=== PATIENT | female | born 1950 | race African-American/Black ===

== ENCOUNTER → 2016-12-08 | Outpatient (CLI) | payer MEDICARE, BC ==
[2015-04-16 11:00] VITALS: BP 142/61
[~2016-12-08] MED LIST: ACET325T9 PO; ALBU0.63 NEB; AMLO10TA2 PO; AMLO5TAB2 PO; ASPI-482 PO; ASPI-630 PO; BRIM5DRO3 OD; BUDE10.2 IH; CALC667C6 PO; CARV12.52 PO; CARV25TA2 PO; CINA30TA2 PO; CLON0.1T PO; Cefpodoxime Proxetil PO; DORZ10DR21 EACHEYE; FOLI0.8T3 PO; FURO80TA3 PO; INSU100I13 SQ; INSU100I17 SQ; INSU100V13 SQ; INSU100V8 SQ; Insulin Detemir SQ; LISI-334 PO; LISI40TA PO; OMEP20CA5 PO; PRAV40TA2 PO; PROAIR HFA8.5 GM IH; [UNRECOGNIZED DRUG - OTHER]; carvedilol; clonidine; lasix; nephro-vite
--- NOTE | 2016-12-08 13:40 | KCIC ---
History: Postmenopausal, end-stage renal disease. Findings: Bone Densitometry was performed with dual photon absorption of the lumbar spine and left hip. Lumbar Spine: Bone density is 1.084 g/cm2 for L1-L4. T-Score is 0.3. Z-score is 1.3. Left hip: Bone density is 0.835 g/cm2. T-Score is -0.9. Z-score is -0.3. IMPRESSION: Bone mineral density of the lumbar spine and left hip appears within normal limits. World Health definition of osteoporosis and osteopenia: Normal = T-Score at or above -1.0; osteopenia = T-score between -1.0 and -2.5; osteoporosis = T-score at or below -2.5 Electronically signed by: Feliz Hills MD (12/08/2016 1:37 PM) [facility]
== END | disposition home or self-care (01) ==
LOC: KCIC MAMMO 10:03
PROVIDERS: ATTEND Internal Medicine
DX: N18.6 End stage renal disease (principal); M81.0 Age-related osteoporosis without current pathological fracture; Z78.0 Asymptomatic menopausal state
CPT/HCPCS: 77080

== ENCOUNTER 2017-02-03 11:02 | Inpatient (IN) | payer MEDICARE, BC ==
[2017-02-03] VITALS (8 sets, daily range): BP systolic 119–217; BP diastolic 45–86
[~2017-02-03] VITALS: Ht 160 cm; Wt 88.6 kg
[~2017-02-03 11:02] MED LIST changes: -ALBU0.63 NEB
[2017-02-03] MEDS ORDERED: ASPIRIN CHEWABLE 81 MG TABLET. PO ONE (12:15)
--- NOTE | 2017-02-03 12:16 | EKG ---
[facility] [address] [place] [address] Test Date: 2017-02-03 Test Time: 11:26:37 Pat Name: STANLEY TAN Department: Room: Gender: F Hydrographer: : 1950 Requested By: GONZALO KNIGHT Order Number: [id number] Reading MD: Measurements Intervals [place] Rate: 70 P: 34 MS: 160 QRS: -18 QRSD: 80 T: 146 QT: 376 QTc: 409 Interpretive Statements SINUS RHYTHM LEFTWARD AXIS CONSIDER LEFT VENTRICULAR HYPERTROPHY QRS(T) CONTOUR ABNORMALITY CONSIDER ANTEROLATERAL MYOCARDIAL DAMAGE POSSIBLY ABNORMAL ECG RI6.01 No previous ECG available for comparison
--- NOTE | 2017-02-03 12:18 | PHYS DOC ---
Past Medical History Past Medical History: Asthma, Diabetes-Type II, Glaucoma, High Cholesterol, Hypertension, Renal Failure Additional Past Medical Histor: obesity Past Surgical History: Cholecystectomy Additional Past Surgical Histo: Rt arm shunt, back, L arm shunt Alcohol Use: None Drug Use: None Adult General Chief Complaint Chief Complaint: Congestion HPI HPI Patient is a 66 year old female who presents with complaint of chest pain. Patient states that she started having chest pain earlier today prior to her arrival at her dialysis center. Due to ongoing chest pain, the patient was sent by EMS to the emergency department from her dialysis center before receiving any treatment. The patient states currently her chest pain has resolved. Patient denies cough or shortness of breath currently. Patient states however she does notice worsening shortness of breath with exertion. Patient has history of hypertension, end-stage renal disease, type 2 diabetes mellitus, and patient follows a Dr. Briggs for primary care. Patient states that she has not had any similar episodes of chest pain. Patient described the pain earlier as a pressure in the middle of her chest. Patient denied any associated vomiting. Review of Systems Review of Systems Constitutional: Denies fever or chills [] Eyes: Denies change in visual acuity, redness, or eye pain [] HENT: Denies nasal congestion or sore throat [] Respiratory: Dyspnea on exertion[] Cardiovascular: Chest pain[] GI: Denies abdominal pain, nausea, vomiting, bloody stools or diarrhea [] : Denies dysuria or hematuria [] Musculoskeletal: Denies back pain or joint pain [] Integument: Denies rash or skin lesions [] Neurologic: Denies headache, focal weakness or sensory changes [] All other systems were reviewed and found to be within normal limits, except as documented in this note. Current Medications Current Medications Current Medications Medications (Trade) Dose Ordered Sig/Barbara Start Time Stop Time Status Last Admin Dose Admin Aspirin (Children'S Aspirin) 324 mg 1X ONCE 02/03/17 12:15 02/03/17 12:16 DC 02/03/17 13:20 324 MG Allergies Allergies Allergies Coded Allergies Type Severity Reaction Last Updated Verified latex Allergy Intermediate 04/11/15 Yes milk Allergy Intermediate 04/11/15 Yes Physical Exam Physical Exam Constitutional: Alert, afebrile, hypertensive, no acute distress. [] HENT: Normocephalic, atraumatic, bilateral external ears normal, oropharynx moist, no oral exudates, nose normal. [] Eyes: PERRLA, EOMI, conjunctiva normal, no discharge. [] Neck: Normal range of motion, no tenderness, supple, no stridor. [] Cardiovascular:Heart rate regular rhythm, no murmur [] Lungs & Thorax: Bilateral breath sounds clear to auscultation [] Abdomen: Bowel sounds normal, soft, no tenderness, no masses, no pulsatile masses. [] Skin: Warm, dry, no erythema, no rash. [] Back: No tenderness, no CVA tenderness. [] Extremities: No tenderness, no cyanosis, no clubbing, ROM intact, trace pedal edema bilaterally. [] Neurologic: Alert and oriented X 3, normal motor function, normal sensory function, no focal deficits noted. [] Current Patient Data Vital Signs Vital Signs Date Time Temp Pulse Resp B/P (MAP) Pulse Ox O2 Delivery O2 Flow Rate FiO2 02/03/17 12:03 71 18 227/98 (141) 99 Nasal Cannula 3.0 02/03/17 11:09 98.6 98.6 EKG EKG Interpreted by me: Heart rate 70, sinus rhythm, normal intervals, leftward axis , no acute ST/T-wave abnormalities present[] Radiology/Procedures Radiology/Procedures [facility] [address] [place] [address] IMAGING REPORT Signed PATIENT: STANLEY TAN ACCOUNT: [id number] : 1950 LOCATION: ER AGE: 66 SEX: F EXAM STATUS: REG ER ORD. PHYSICIAN: GONZALO KNIGHT MD REASON: shortness of breath PROCEDURE: PORTABLE CHEST 1V Single view of the Chest 02/03/2017 2:09 PM Indication: shortness of breath Comparison: Chest radiograph April 13, 2015 Findings: No pneumothorax is identified. Trace bilateral pleural effusions appear to be present. Mild patchy interstitial alveolar infiltrate is present throughout the lungs, right slightly greater than left. Heart is enlarged and there is central vascular congestion. Findings may represent mild pulmonary edema possibly in setting of congestive failure. Atypical infectious process is less likely but not excluded. No acute osseous changes are seen. Impression: Cardiac likely, central vascular congestion, trace pleural effusions. Minimal diffuse interstitial thickening and mild airspace opacities are seen bilaterally, right slightly greater than left. Findings may represent mild edema setting of congestive failure. Atypical infectious process is less likely but not excluded DICTATED and SIGNED BY: ABBE GALAN MD DATE: 02/03/17 1232 CC: GONZALO KNIGHT MD; DIVINA BRIGGS MD ~ [] Course & Med Decision Making Course & Med Decision Making Pertinent Labs and Imaging studies reviewed. (See chart for details) The patient's chest x-ray shows evidence of worsening edema. Given the setting of patient's hypertension and end-stage renal disease, the patient will need admission for appropriate treatment of her conditions. I spoke with Dr. Briggs who accepted care patient in hospital. Patient started on IV hydralazine for treatment of blood pressure. I also spoke with Dr. Bajwa who evaluated the patient in the emergency department and will follow with patient in hospital. A consult was placed to Dr. Perkins to follow with patient in hospital. Dragon Disclaimer Dragon Disclaimer This electronic medical record was generated, in whole or in part, using a voice recognition dictation system. Departure Departure Impression: Primary Impression: Accelerated hypertension Additional Impressions: Pulmonary edema Chest pain End stage renal disease Type 2 diabetes mellitus Disposition: ADMITTED INPATIENT Admitting Physician: Other Condition: GUARDED Referrals: DIVINA BRIGGS MD (PCP) Problem Qualifiers Additional Impressions: Pulmonary edema Chronicity: acute Qualified Codes: J81.0 - Acute pulmonary edema Chest pain Chest pain type: unspecified Qualified Codes: R07.9 - Chest pain, unspecified Type 2 diabetes mellitus Diabetes mellitus complication status: with unspecified complications Diabetes mellitus retirement insulin use: unspecified medical terminologist insulin use status Qualified Codes: E11.8 - Type 2 diabetes mellitus with unspecified complications GONZALO KNIGHT MD Feb 03, 2017 12:18
--- NOTE | 2017-02-03 12:38 | RAD ---
Single view of the Chest 02/03/2017 2:09 PM Indication: shortness of breath Comparison: Chest radiograph April 13, 2015 Findings: No pneumothorax is identified. Trace bilateral pleural effusions appear to be present. Mild patchy interstitial alveolar infiltrate is present throughout the lungs, right slightly greater than left. Heart is enlarged and there is central vascular congestion. Findings may represent mild pulmonary edema possibly in setting of congestive failure. Atypical infectious process is less likely but not excluded. No acute osseous changes are seen. Impression: Cardiac likely, central vascular congestion, trace pleural effusions. Minimal diffuse interstitial thickening and mild airspace opacities are seen bilaterally, right slightly greater than left. Findings may represent mild edema setting of congestive failure. Atypical infectious process is less likely but not excluded
[2017-02-03 13:39] LABS: BASO # 0.1 x10^3/uL (0.0-0.2); BASO % 1 % (0-3); EOS % 11 % (0-3); HEMATOCRIT 38.1 % (36.0-47.0); HEMOGLOBIN 12.2 g/dL (12.0-15.5); LYMPH % 14 % (24-48); MEAN CORPUSCULAR HEMOGLOBIN 29 pg (25-35); MEAN CORPUSCULAR HGB CONC 32 g/dL (31-37); MEAN CORPUSCULAR VOLUME 91 fL (79-100); MONO % 8 % (0-9); NEUT % 66 % (31-73); PLATELET COUNT 222 x10^3/uL (140-400); RED BLOOD COUNT 4.17 x10^6/uL (3.50-5.40); RED CELL DISTRIBUTION WIDTH 17.7 % (11.5-14.5); WHITE BLOOD COUNT 6.8 x10^3/uL (4.0-11.0)
[2017-02-03] MEDS ORDERED: ONDANSETRON PF 4 MG/2 ML VIAL. IV PRN (13:45)
[2017-02-03] MEDS ORDERED: fentaNYL PF VIAL 100 MCG/2 ML VIAL IV PRN (13:45)
[2017-02-03] MEDS: hydrALAZINE 20 MG/ML VIAL. IVP PRN (13:48)
--- NOTE | 2017-02-03 14:17 | PDOC2 ---
CONSULT Date of Consult Date of Consult DATE: 02/03/17 TIME: 14:11 Reason for Consult Reason for Consult: Chest pain Referring Physician Referring Physician: Dr. La Identification/Chief Complaint Chief Complaint Chest pain Problems: History of Present Illness Reason for Visit: This patient is a 66-year-old lady that has a known history of end-stage renal disease, diabetes, severe hypertension, she was having her dialysis around when her blood pressure went up and she started complaining of chest pains. Due to that she was brought to the emergency room. After arrival in the ER. EKG did not show any significant changes. I was asked to see the patient in the emergency room and I went and saw her there by the time that I arrived she was free of chest pains but complains that she is short of breath and very weak and can barely move in the bed. Her chest x-ray looks like acute CHF. Her blood pressure was still up over 200 and she has been given IV labetalol but is not quite coming down. Past Medical History Cardiovascular: CAD, HTN, MS, Syncope Pulmonary: No pertinent hx CENTRAL NERVOUS SYSTEM: Periperal neuropathy, TIA GI: No pertinent hx Heme/Onc: Anemia NOS Hepatobiliary: No pertinent hx Psych: No pertinent hx Musculoskeletal: Osteoarthritis Rheumatologic: No pertinent hx Infectious disease: No pertinent hx Renal/: Chronic renal failure Endocrine: Diabetes Past Surgical History Past Surgical History: Cholecystectomy, Other Family History Family History: Diabetes, Hypertension Social History ALCOHOL: none Drugs: None Lives: with Family Domestic Violence: Neg Current Problem List Problem List Problems Medical Problems: (1) Chest pain Status: Acute (2) End stage renal disease Status: Acute (3) Pulmonary edema Status: Acute (4) Type 2 diabetes mellitus Status: Acute Current Medications Current Medications Current Medications Aspirin (Children'S Aspirin) 324 mg 1X ONCE PO Last administered on t 13:20; Start 02/03/17 at 12:15; Stop 02/03/17 at 12:16; Status DC Ondansetron HCl (Zofran) 4 mg PRN Q8HRS PRN IV NAUSEA/VOMITING; Start at 13:45; Stop 02/04/17 at 13:44 Fentanyl Citrate (Fentanyl 2ml Vial) 50 mcg PRN Q2HR PRN IV PAIN; Start at 13:45; Stop 02/04/17 at 13:44 Hydralazine HCl (Apresoline Inj) 10 mg PRN Q4HRS PRN IVP ELEVATED BP, SEE COMMENTS Last administered on 02/03/17t 13:48; Start 02/03/17 at 13:45 Active Scripts Active Amlodipine Besylate 5 Mg Tablet 5 Mg PO DAILY Carvedilol 12.5 Mg Tablet 1 Tab PO BID Reported Levemir (Insulin Detemir) 100 Unit/1 Ml Vial 4 Unit SQ QHS Novolog Flexpen (Insulin Aspart) 100 Unit/1 Ml Insuln.pen 4 Unit SQ TIDAC Phoslo (Calcium Acetate) 667 Mg Capsule 2 Cap PO QHS Phoslo (Calcium Acetate) 667 Mg Capsule 3 Cap PO TIDWMEALS Symbicort 160-4.5 Mcg Inhaler (Budesonide/Formoterol Fumarate) 10.2 Gm Hfa.aer.ad 2 Puff IH BID Nephro-Johnny Tablet (Folic Acid/Vitamin B Comp W-C) 0.8 Mg Tablet 1 Tab PO DAILY Alphagan P (Brimonidine Tartrate) 5 Ml Drops 1 Drop OD BID Sensipar (Cinacalcet Hcl) 30 Mg Tablet 60 Mg PO DAILY Prilosec (Omeprazole) 20 Mg Capsule.dr 1 Cap PO DAILY Tylenol (Acetaminophen) 325 Mg Tablet 325 Mg PO Q4-6HRS PRN Proair Hfa Inhaler (Albuterol Sulfate) 8.5 Gm Hfa.aer.ad 2 Puff IH PRN Q4-6HRS Cosopt Eye Drops (Dorzolamide Hcl/Timolol Maleat) 10 Ml Drops 1 Drop EACHEYE BID Aspirin 81 Mg Tab.chew 81 Mg PO DAILY Allergies Allergies: Coded Allergies: latex (Verified Allergy, Intermediate, 04/11/15) milk (Verified Allergy, Intermediate, 04/11/15) Physical Exam General: Alert, Oriented X3, Cooperative HEENT: Other (the patient is blind in the left eye. The right eye is responsive to light.) Lungs: Other (sounds are decreased. Some rails) Heart: Regular rate, Normal S1, Normal S2 Abdomen: Normal bowel sounds, Soft Extremities: Other (1-2+ pitting edema.) Vitals VITALS Vital Signs Date Time Temp Pulse Resp B/P (MAP) Pulse Ox O2 Delivery O2 Flow Rate FiO2 02/03/17 13:48 67 210/91 02/03/17 13:33 16 100 Nasal Cannula 3.0 02/03/17 11:09 98.6 98.6 Labs Labs Laboratory Tests Test 02/03/17 13:23 White Blood Count 6.8 x10^3/uL (4.0-11.0) Red Blood Count 4.17 x10^6/uL (3.50-5.40) Hemoglobin 12.2 g/dL (12.0-15.5) Hematocrit 38.1 % (36.0-47.0) Mean Corpuscular Volume 91 fL (79-100) Mean Corpuscular Hemoglobin 29 pg (25-35) Mean Corpuscular Hemoglobin Concent 32 g/dL (31-37) Red Cell Distribution Width 17.7 % (11.5-14.5) Platelet Count 222 x10^3/uL (140-400) Neutrophils (%) (Auto) 66 % (31-73) Lymphocytes (%) (Auto) 14 % (24-48) Monocytes (%) (Auto) 8 % (0-9) Eosinophils (%) (Auto) 11 % (0-3) Basophils (%) (Auto) 1 % (0-3) Neutrophils # (Auto) 4.5 x10^3uL (1.8-7.7) Lymphocytes # (Auto) 1.0 x10^3/uL (1.0-4.8) Monocytes # (Auto) 0.5 x10^3/uL (0.0-1.1) Eosinophils # (Auto) 0.7 x10^3/uL (0.0-0.7) Basophils # (Auto) 0.1 x10^3/uL (0.0-0.2) Laboratory Tests Test 02/03/17 13:23 White Blood Count 6.8 x10^3/uL (4.0-11.0) Red Blood Count 4.17 x10^6/uL (3.50-5.40) Hemoglobin 12.2 g/dL (12.0-15.5) Hematocrit 38.1 % (36.0-47.0) Mean Corpuscular Volume 91 fL (79-100) Mean Corpuscular Hemoglobin 29 pg (25-35) Mean Corpuscular Hemoglobin Concent 32 g/dL (31-37) Red Cell Distribution Width 17.7 % (11.5-14.5) Platelet Count 222 x10^3/uL (140-400) Neutrophils (%) (Auto) 66 % (31-73) Lymphocytes (%) (Auto) 14 % (24-48) Monocytes (%) (Auto) 8 % (0-9) Eosinophils (%) (Auto) 11 % (0-3) Basophils (%) (Auto) 1 % (0-3) Neutrophils # (Auto) 4.5 x10^3uL (1.8-7.7) Lymphocytes # (Auto) 1.0 x10^3/uL (1.0-4.8) Monocytes # (Auto) 0.5 x10^3/uL (0.0-1.1) Eosinophils # (Auto) 0.7 x10^3/uL (0.0-0.7) Basophils # (Auto) 0.1 x10^3/uL (0.0-0.2) Assessment/Plan Assessment/Plan This patient's symptoms may be secondary to her hypertension. She appears to be overloaded and I would suggest to continue with daily dialysis to get fluid off and also to help lowering the blood pressure. If the labetalol doesn't help we may have to go to a [facility]. Thank you very much for asking me to participate in the care of this patient. LUIS GARNETT MD Feb 03, 2017 14:17
[2017-02-03 14:19] LABS: CALCIUM 10.6 mg/dL (8.5-10.1); GFR 4.5; GLUCOSE 105 mg/dL (70-99)
[2017-02-03 14:28] LABS: ANION GAP 13 (6-14); BLOOD UREA NITROGEN 1 mg/dL (7-20); BUN/CREATININE RATIO 0 (6-20); CARBON DIOXIDE 23 mmol/L (21-32); CHLORIDE 103 mmol/L (98-107); CREATININE 10.5 mg/dL (0.6-1.0); POTASSIUM 5.2 mmol/L (3.5-5.1); SODIUM 139 mmol/L (136-145)
[2017-02-03 14:30] LABS: ALK PHOS 64 U/L (46-116); AST (SGOT) 19 U/L (15-37); TOTAL BILIRUBIN 0.7 mg/dL (0.2-1.0); TOTAL PROTEIN 7.2 g/dL (6.4-8.2)
[2017-02-03 14:31] LABS: CKMB MASS 1.5 ng/mL (0.0-3.6); CREATINE KINASE 108 U/L (26-192)
[2017-02-03 14:43] LABS: ALBUMIN 4.1 g/dL (3.4-5.0); ALBUMIN/GLOBULIN RATIO 1.3 (1.0-1.7)
[2017-02-03 14:44] LABS: ALT (SGPT) < 6 U/L (14-59)
[2017-02-03 15:07] LABS: MAGNESIUM 2.1 mg/dL (1.8-2.4)
[2017-02-03] MEDS ORDERED: ACETAMINOPHEN 325 MG TABLET. PO PRN (15:30)
[2017-02-03] MEDS ORDERED: DEXTROSE 50% 25 GM / 50ML DISP.SYRIN. IV PRN (15:30)
[2017-02-03] MEDS ORDERED: LIDOCAINE 1% PF 2 ML VIAL. ONE (15:42)
[2017-02-03] MEDS: INSULIN ASPART 300 UNITS/3 ML INSULN.PEN SQ SCH (17:00)
[2017-02-03] MEDS ORDERED: ALBU0.63 NEB (17:34)
[2017-02-03] MEDS: BRIMONIDINE 0.2% OPHTH SOLUTION 5ML BOTTLE. OD SCH (19:52)
[2017-02-03] MEDS: DORZOLAMIDE/TIMOLOL 2%/0.5% OPHTH SOLUTION 10ML BOTTLE. OU SCH (19:52)
[2017-02-03] MEDS: CARVEDILOL 12.5 MG TABLET. PO SCH (19:52)
[2017-02-04] VITALS (12 sets, daily range): BP systolic 125–170; BP diastolic 52–100
--- NOTE | 2017-02-04 02:01 | CONS ---
DATE OF CONSULTATION: 02/03/2017 REQUESTING PHYSICIAN: Hospitalist. REASON: Renal failure. HISTORY OF PRESENT ILLNESS: This is a 66-year-old female with diabetes mellitus and end-stage renal disease secondary to same. She has a history of known severe hypertension. She presented to the Emergency Department and transferred from dialysis facility due to chest pain. She did not receive her dialysis treatment. The patient has been seen by Dr. Bajwa in the past. Has had cardiac catheterization with unremarkable coronary arteries. Her chest pain is felt to be related to her hypertension. PAST MEDICAL HISTORY: 1. Diabetes mellitus. 2. End-stage renal disease, hemodialysis dependent, Monday, Monday and Monday. 3. Hypertension. 4. Syncope. 5. Anemia of chronic kidney disease. 6. Secondary hyperparathyroidism. 7. Renal disease. 8. Osteoarthritis. 9. Obesity. 10. Cholecystectomy. 11. Vascular access placement. ALLERGIES: LATEX AND MILK. MEDICATIONS: Per med list. FAMILY HISTORY: Noncontributory. SOCIAL HISTORY: The patient resides with assistance. PHYSICAL EXAMINATION: GENERAL APPEARANCE: The patient is awake and conversant. HEENT: Clear. NECK: No increased JVD. No thyromegaly, masses or adenopathy. LUNGS: Decreased breath sounds at bases, otherwise clear. CARDIAC: Without S3 or rub. ABDOMEN: Soft and nontender. No bruits. EXTREMITIES: Without edema. NEUROLOGIC: Nonfocal, localizing. PSYCHIATRIC: Fair attention to detail. Appropriate affect. LABORATORIES: Hemoglobin 12.2 and hematocrit 38%. Potassium 5.2 and CO2 of 23. Creatinine 10.5. ProBNP greater than 35,000. IMPRESSION: 1. End-stage renal disease secondary to diabetes mellitus and hypertension. 2. Hypertension - under poor control. 3. Hypertension - likely related to hypertensive urgency. 4. Hyperkalemia due to renal failure. 5. Pulmonary edema related to hypertension. RECOMMENDATIONS: 1. Proceed with dialysis for management of fluid balance. She is in pulmonary edema, and this will assist in ____ and also assist in management of her hyperkalemia. 2. Blood pressure control per Dr. Bajwa. 3. We will follow along with you. At this time, we will hold Epogen due to hypertension and hemoglobin of 12.2. DIVINA ROQUE MD DR: JUANA/miles JOB#: [id number] / [id number]
[2017-02-04] MEDS: INSULIN ASPART 300 UNITS/3 ML INSULN.PEN SQ SCH ×3 (08:00→17:56)
[2017-02-04] MEDS ORDERED: amLODIPine BESYLATE 5 MG TABLET PO SCH (09:00)
[2017-02-04] MEDS: PANTOPRAZOLE 40 MG TABLET.DR. PO SCH (09:11)
[2017-02-04] MEDS: FOLIC/VIT B COMP W-C (RENAL) TABLET. PO SCH (09:11)
[2017-02-04] MEDS: ASPIRIN CHEWABLE 81 MG TABLET. PO SCH (09:11)
[2017-02-04] MEDS: CARVEDILOL 12.5 MG TABLET. PO SCH ×2 (09:11→16:36)
[2017-02-04] MEDS: DORZOLAMIDE/TIMOLOL 2%/0.5% OPHTH SOLUTION 10ML BOTTLE. OU SCH ×2 (09:12→21:11)
[2017-02-04] MEDS: CINACALCET HCL 30 MG TABLET PO SCH (09:12)
[2017-02-04] MEDS: BRIMONIDINE 0.2% OPHTH SOLUTION 5ML BOTTLE. OD SCH ×2 (09:13→21:11)
--- NOTE | 2017-02-04 11:10 | PDOC ---
PROGRESS NOTES Subjective Subjective She feels a little better today. Complaints of a headache. No significant dyspnea now. The blood pressure has been running a little better. Troponins were negative. She is still on a Cardene drip Objective Objective Vital Signs Date Time Temp Pulse Resp B/P (MAP) Pulse Ox O2 Delivery O2 Flow Rate FiO2 02/04/17 10:00 72 148/60 (89) 02/04/17 07:00 98.5 19 95 Nasal Cannula 3.0 98.5 Physical Exam Physical Exam Moving air well. Few rales. Heart no changes Less edema Assessment Assessment The patient's pulmonary edema is improving. I would like to increase the carvedilol to 25 mg by mouth twice a day and get rid of the Cardene drip. Problems Medical Problems: (1) Chest pain Status: Acute (2) End stage renal disease Status: Acute (3) Pulmonary edema Status: Acute (4) Type 2 diabetes mellitus Status: Acute Comment Review of Relevant I have reviewed the following items jorge (where applicable) has been applied. Labs Laboratory Tests Test 02/03/17 13:23 02/03/17 19:50 02/04/17 07:56 White Blood Count 6.8 x10^3/uL (4.0-11.0) Red Blood Count 4.17 x10^6/uL (3.50-5.40) Hemoglobin 12.2 g/dL (12.0-15.5) Hematocrit 38.1 % (36.0-47.0) Mean Corpuscular Volume 91 fL (79-100) Mean Corpuscular Hemoglobin 29 pg (25-35) Mean Corpuscular Hemoglobin Concent 32 g/dL (31-37) Red Cell Distribution Width 17.7 % (11.5-14.5) Platelet Count 222 x10^3/uL (140-400) Neutrophils (%) (Auto) 66 % (31-73) Lymphocytes (%) (Auto) 14 % (24-48) Monocytes (%) (Auto) 8 % (0-9) Eosinophils (%) (Auto) 11 % (0-3) Basophils (%) (Auto) 1 % (0-3) Neutrophils # (Auto) 4.5 x10^3uL (1.8-7.7) Lymphocytes # (Auto) 1.0 x10^3/uL (1.0-4.8) Monocytes # (Auto) 0.5 x10^3/uL (0.0-1.1) Eosinophils # (Auto) 0.7 x10^3/uL (0.0-0.7) Basophils # (Auto) 0.1 x10^3/uL (0.0-0.2) Sodium Level 139 mmol/L (136-145) Potassium Level 5.2 mmol/L (3.5-5.1) Chloride Level 103 mmol/L (98-107) Carbon Dioxide Level 23 mmol/L (21-32) Anion Gap 13 (6-14) Blood Urea Nitrogen 1 mg/dL (7-20) Creatinine 10.5 mg/dL (0.6-1.0) Estimated GFR (Cockcroft-Gault) 4.5 BUN/Creatinine Ratio 0 (6-20) Glucose Level 105 mg/dL (70-99) Calcium Level 10.6 mg/dL (8.5-10.1) Magnesium Level 2.1 mg/dL (1.8-2.4) Total Bilirubin 0.7 mg/dL (0.2-1.0) Aspartate Amino Transf (AST/SGOT) 19 U/L (15-37) Alanine Aminotransferase (ALT/SGPT) < 6 U/L (14-59) Alkaline Phosphatase 64 U/L (46-116) Creatine Kinase 108 U/L (26-192) Creatine Kinase MB (Mass) 1.5 ng/mL (0.0-3.6) Creatine Kinase MB Relative Index 1.4 % (0-4) Troponin I Quantitative < 0.017 ng/mL (0.000-0.055) VL-Rvv-A-Type Natriuretic Peptide > 10189 pg/mL (0-124) Total Protein 7.2 g/dL (6.4-8.2) Albumin 4.1 g/dL (3.4-5.0) Albumin/Globulin Ratio 1.3 (1.0-1.7) Glucose (Fingerstick) 93 mg/dL (70-99) 104 mg/dL (70-99) Laboratory Tests Test 02/03/17 13:23 02/03/17 19:50 02/04/17 07:56 White Blood Count 6.8 x10^3/uL (4.0-11.0) Red Blood Count 4.17 x10^6/uL (3.50-5.40) Hemoglobin 12.2 g/dL (12.0-15.5) Hematocrit 38.1 % (36.0-47.0) Mean Corpuscular Volume 91 fL (79-100) Mean Corpuscular Hemoglobin 29 pg (25-35) Mean Corpuscular Hemoglobin Concent 32 g/dL (31-37) Red Cell Distribution Width 17.7 % (11.5-14.5) Platelet Count 222 x10^3/uL (140-400) Neutrophils (%) (Auto) 66 % (31-73) Lymphocytes (%) (Auto) 14 % (24-48) Monocytes (%) (Auto) 8 % (0-9) Eosinophils (%) (Auto) 11 % (0-3) Basophils (%) (Auto) 1 % (0-3) Neutrophils # (Auto) 4.5 x10^3uL (1.8-7.7) Lymphocytes # (Auto) 1.0 x10^3/uL (1.0-4.8) Monocytes # (Auto) 0.5 x10^3/uL (0.0-1.1) Eosinophils # (Auto) 0.7 x10^3/uL (0.0-0.7) Basophils # (Auto) 0.1 x10^3/uL (0.0-0.2) Sodium Level 139 mmol/L (136-145) Potassium Level 5.2 mmol/L (3.5-5.1) Chloride Level 103 mmol/L (98-107) Carbon Dioxide Level 23 mmol/L (21-32) Anion Gap 13 (6-14) Blood Urea Nitrogen 1 mg/dL (7-20) Creatinine 10.5 mg/dL (0.6-1.0) Estimated GFR (Cockcroft-Gault) 4.5 BUN/Creatinine Ratio 0 (6-20) Glucose Level 105 mg/dL (70-99) Calcium Level 10.6 mg/dL (8.5-10.1) Magnesium Level 2.1 mg/dL (1.8-2.4) Total Bilirubin 0.7 mg/dL (0.2-1.0) Aspartate Amino Transf (AST/SGOT) 19 U/L (15-37) Alanine Aminotransferase (ALT/SGPT) < 6 U/L (14-59) Alkaline Phosphatase 64 U/L (46-116) Creatine Kinase 108 U/L (26-192) Creatine Kinase MB (Mass) 1.5 ng/mL (0.0-3.6) Creatine Kinase MB Relative Index 1.4 % (0-4) Troponin I Quantitative < 0.017 ng/mL (0.000-0.055) PE-Vzj-M-Type Natriuretic Peptide > 58571 pg/mL (0-124) Total Protein 7.2 g/dL (6.4-8.2) Albumin 4.1 g/dL (3.4-5.0) Albumin/Globulin Ratio 1.3 (1.0-1.7) Glucose (Fingerstick) 93 mg/dL (70-99) 104 mg/dL (70-99) Medications Current Medications Aspirin (Children'S Aspirin) 324 mg 1X ONCE PO Last administered on 13:20; Start 02/03/17 at 12:15; Stop 02/03/17 at 12:16; Status DC Ondansetron HCl (Zofran) 4 mg PRN Q8HRS PRN IV NAUSEA/VOMITING; Start at 13:45; Stop 02/04/17 at 13:44 Fentanyl Citrate (Fentanyl 2ml Vial) 50 mcg PRN Q2HR PRN IV PAIN; Start at 13:45; Stop 02/04/17 at 13:44 Hydralazine HCl (Apresoline Inj) 10 mg PRN Q4HRS PRN IVP ELEVATED BP, SEE COMMENTS Last administered on 02/03/17 13:48; Start 02/03/17 at 13:45 Insulin Aspart (NovoLOG) 0-6 UNITS TIDWMEALS SQ ; Start 02/03/17 at 17:00 Dextrose (Dextrose 50%-Water Syringe) 12.5 gm PRN Q15MIN PRN IV SEE COMMENTS; Start 02/03/17 at 15:30 Acetaminophen (Tylenol) 325 mg PRN Q6HRS PRN PO PAIN; Start 02/03/17 at 15:30 Amlodipine Besylate (Norvasc) 5 mg DAILY PO Last administered on 02/04/17 09: 11; Start 02/04/17 at 09:00 Aspirin (Children'S Aspirin) 81 mg DAILY PO Last administered on 02/04/17 09: 11; Start 02/04/17 at 09:00 Carvedilol (Coreg) 12.5 mg BIDWMEALS PO Last administered on 02/04/17 09:11; Start 02/03/17 at 18:00 Cinacalcet (Sensipar) 60 mg DAILY PO Last administered on 02/04/17 09:12; Start 02/04/17 at 09:00 Dorzolamide/ Timolol (Cosopt) 1 drop BID OU Last administered on 02/04/17 09: 12; Start 02/03/17 at 21:00 Vitamin B Complex/ Vitamin C (Christen-Johnny) 1 tab DAILY PO Last administered on 09:11; Start 02/04/17 at 09:00 Brimonidine Tartrate (Alphagan) 1 drop BID OD Last administered on 02/04/17 09:13; Start 02/03/17 at 21:00 Pantoprazole Sodium (Protonix) 40 mg DAILYAC PO Last administered on 09:11; Start 02/04/17 at 07:30 Nicardipine HCl 50 mg/Sodium Chloride 270 ml @ 25 mls/hr CONT PRN IV SEE I/O RECORD Last administered on 02/03/17 20:00; Start 02/03/17 at 20:00 Active Scripts Active Amlodipine Besylate 5 Mg Tablet 5 Mg PO DAILY Carvedilol 12.5 Mg Tablet 1 Tab PO BID Reported Albuterol Sulfate Neb Soln (Albuterol Sulfate) 0.63 Mg/3 Ml Vial.neb 1 Vial NEB QID Levemir (Insulin Detemir) 100 Unit/1 Ml Vial 4 Unit SQ QHS Novolog Flexpen (Insulin Aspart) 100 Unit/1 Ml Insuln.pen 4 Unit SQ TIDAC Phoslo (Calcium Acetate) 667 Mg Capsule 2 Cap PO QHS Phoslo (Calcium Acetate) 667 Mg Capsule 3 Cap PO TIDWMEALS Symbicort 160-4.5 Mcg Inhaler (Budesonide/Formoterol Fumarate) 10.2 Gm Hfa.aer.ad 2 Puff IH BID Nephro-Johnny Tablet (Folic Acid/Vitamin B Comp W-C) 0.8 Mg Tablet 1 Tab PO DAILY Alphagan P (Brimonidine Tartrate) 5 Ml Drops 1 Drop OD BID Sensipar (Cinacalcet Hcl) 30 Mg Tablet 60 Mg PO DAILY Prilosec (Omeprazole) 20 Mg Capsule.dr 1 Cap PO DAILY Tylenol (Acetaminophen) 325 Mg Tablet 325 Mg PO Q4-6HRS PRN Proair Hfa Inhaler (Albuterol Sulfate) 8.5 Gm Hfa.aer.ad 2 Puff IH PRN Q4-6HRS Cosopt Eye Drops (Dorzolamide Hcl/Timolol Maleat) 10 Ml Drops 1 Drop EACHEYE BID Aspirin 81 Mg Tab.chew 81 Mg PO DAILY Vitals/I & O Vital Sign - Last 24 Hours 02/03/17 02/03/17 02/03/17 02/03/17 11:09 11:51 12:03 13:22 Temp 98.6 98.6 Pulse 72 71 71 73 Resp 16 18 18 22 B/P (MAP) 200/91 (127) 242/102 (148) 227/98 (141) 215/91 (132) Pulse Ox 99 99 99 92 O2 Delivery Nasal Cannula Nasal Cannula Nasal Cannula Nasal Cannula O2 Flow Rate 3.0 3.0 3.0 3.0 02/03/17 02/03/17 02/03/17 02/03/17 13:33 13:46 13:48 14:03 Pulse 67 73 67 73 Resp 16 20 20 B/P (MAP) 213/89 (130) 210/91 (130) 210/91 211/86 (127) Pulse Ox 100 100 100 O2 Delivery Nasal Cannula Nasal Cannula Nasal Cannula O2 Flow Rate 3.0 3.0 3.0 02/03/17 02/03/17 02/03/17 02/03/17 14:30 14:52 19:38 19:52 Temp 97.7 97.4 97.7 97.4 Pulse 80 75 75 Resp 20 20 B/P (MAP) 197/71 (113) 217/86 (129) 217/86 Pulse Ox 97 100 O2 Delivery Nasal Cannula Nasal Cannula Nasal Cannula O2 Flow Rate 2.0 3.0 3.0 02/03/17 02/03/17 02/03/17 02/03/17 20:00 20:08 20:30 21:00 B/P (MAP) 186/72 (110) 170/57 (94) 156/50 (85) O2 Delivery Nasal Cannula O2 Flow Rate 3.0 02/03/17 02/03/17 02/03/17 02/04/17 21:30 22:01 22:30 03:00 Temp 98.6 98.3 98.6 98.3 Pulse 84 77 Resp 20 19 B/P (MAP) 150/51 (84) 119/45 (69) 119/52 (74) 146/60 (88) Pulse Ox 95 98 O2 Delivery Nasal Cannula Nasal Cannula O2 Flow Rate 3.0 3.0 02/04/17 02/04/17 02/04/17 02/04/17 03:30 04:30 05:30 07:00 Temp 98.5 98.5 Pulse 72 81 Resp 19 B/P (MAP) 145/67 (93) 149/72 (97) 149/70 (96) 158/100 (119) Pulse Ox 95 O2 Delivery Nasal Cannula O2 Flow Rate 3.0 02/04/17 02/04/17 02/04/17 02/04/17 08:00 09:00 09:11 09:11 Pulse 70 80 81 81 B/P (MAP) 156/92 (113) 170/60 (96) 158/100 158/100 02/04/17 10:00 Pulse 72 B/P (MAP) 148/60 (89) LUIS GARNETT MD Feb 04, 2017 11:10
[2017-02-04] MEDS ORDERED: CARVEDILOL 12.5 MG TABLET. PO ONE (11:15)
--- NOTE | 2017-02-04 11:24 | PDOC ---
Provider Note Provider Note history and physical dictated # [id number] DIVINA BRIGGS MD Feb 04, 2017 11:24
[2017-02-04] MEDS ORDERED: amLODIPine BESYLATE 5 MG TABLET PO ONE (13:00)
--- NOTE | 2017-02-04 13:18 | HP ---
ADMIT DATE: 02/03/2017 LOCATION: She is in room 200. HISTORY OF PRESENT ILLNESS: The patient is a 66-year-old -[place] female with history of diabetes mellitus type 2, treated with diet; hypertension, hyperlipidemia with statin intolerance, who has chronic hypoxic respiratory failure, on continuous oxygen 3 liters per nasal cannula and has end-stage renal disease, treated with hemodialysis on Mondays, Wednesdays and Fridays. The patient was at hemodialysis yesterday when she developed some chest pain and had high blood pressure and was sent to the [facility] Emergency Room where she eventually received IV labetalol and was started on IV Cardene drip. Her blood pressure is better this morning. She says she has not missed any hemodialysis; however, yesterday she did miss the one when she had her chest pain and was dialyzed after she was admitted to [facility] yesterday on 02/03/2017. She is presently pain free. She was hospitalized in March 2015 with chest pain and her cardiac catheterization showed no significant coronary artery disease. An echocardiogram showed a preserved left ventricular ejection fraction. The patient therefore admitted for further evaluation of her chest discomfort and accelerated hypertension. She does take amlodipine and carvedilol at home. ALLERGIES AND INTOLERANCES: INCLUDE LATEX AND MILK. MEDICATIONS: Include amlodipine 5 mg every day, albuterol inhaler 2 puffs every 4 hours p.r.n., albuterol nebulizer treatment q.i.d. p.r.n., aspirin 81 mg every day, eyedrops for glaucoma, carvedilol 12.5 mg b.i.d., Sensipar 60 mg every day, Nephro-Johnny 1 every day and she takes omeprazole 20 mg every day. PAST MEDICAL HISTORY: Significant for hospitalization in March 2015 for chest pain. Her cardiac catheterization revealed no significant coronary artery disease. An echocardiogram showed a preserved left ventricular ejection fraction. She had a left lung mass that was aspirated and it was benign. She has diabetes mellitus type 2, treated with diet; hypertension; hyperlipidemia; asthma; obstructive sleep apnea, but her CPAP I think is not functional; chronic hypoxic respiratory failure, on chronic oxygen 3 liters per nasal cannula; end-stage renal disease, on hemodialysis. She has hyperlipidemia with statin intolerance. She has a shunt for dialysis. SOCIAL HISTORY: She does not drink alcohol nor does she smoke cigarettes. FAMILY HISTORY: Noncontributory. REVIEW OF SYSTEMS: GENERAL: There has been no fever, chills or sweats. CARDIOVASCULAR: She had some chest pain yesterday, which resolved. PULMONARY: No cough. She had some shortness of breath yesterday, but not now. GASTROINTESTINAL: No constipation. ENDOCRINE: She has diabetes mellitus. The rest of systems reviewed are negative except as stated in history of present illness. PHYSICAL EXAMINATION: VITAL SIGNS: Temperature is 97.5 degrees, apical pulse regular at 74, respiratory rate 16, blood pressure 128/63, oxygen saturation 100% on 3 liters per nasal cannula. HEENT: Eyes: Gaze is conjugate. Mouth: Tongue is midline. NECK: There is no cervical lymphadenopathy. HEART: Reveals an S1, S2. There is no S3 or murmur. LUNGS: Clear. ABDOMEN: Obese and soft, nontender. EXTREMITIES: Left upper extremity has got an AV shunt with a positive thrill. Lower extremities without edema. SKIN: No rashes. NEUROLOGIC: Shows she is coherent with no focal weakness of the upper or lower extremities. LABORATORY DATA: White count 6.8, hemoglobin 12.2, platelet count 222,000, 66 polys, 14 lymphocytes. Sodium 139, potassium 5.2, chloride 103, total CO2 was 23. The BUN was 1, creatinine 10.5, blood sugar 105, calcium 10.6. Liver function tests were normal. Albumin 4.1. ProBNP was increased at 35,000, but she is a dialysis patient. Her troponin levels negative x 1. Her blood sugar this morning is 104 and it was 93 last night. Chest x-ray showed trace bilateral pleural effusions, mild patchy interstitial alveolar infiltrates throughout the lungs. Findings could be consistent with mild pulmonary edema. ____ done an EKG and showed normal sinus rhythm with no acute abnormality. ASSESSMENT: 1. Accelerated hypertension, which is improved on IV Cardene drip. 2. Atypical chest pain with essentially normal cardiac catheterization in March 2015. 3. End-stage renal disease, treated with hemodialysis. 4. Diabetes mellitus type 2, treated with diet. 5. Chronic hypoxic respiratory failure. 6. Obstructive sleep apnea. 7. Hyperlipidemia with statin intolerance. PLAN: At this time is to discontinue IV Cardene drip and increase her amlodipine to 10 mg every day and I discussed the case with Dr. Bajwa. We will increase the carvedilol to 25 mg b.i.d. We will continue with p.r.n. IV hydralazine should her blood pressure be 160 or higher. She was dialyzed yesterday. She is already been seen by Dr. Cali in consultation. DIVINA BRIGGS MD DR: AZUCENA/miles JOB#: [id number] / [id number]
[2017-02-04] MEDS: hydrALAZINE 20 MG/ML VIAL. IVP PRN (18:10)
[2017-02-05 03:18] VITALS: BP 135/53
[2017-02-05 07:00] VITALS: BP 154/58
[2017-02-05] MEDS ORDERED: amLODIPine BESYLATE 10 MG TABLET PO SCH (09:00)
[2017-02-05] MEDS: CINACALCET HCL 30 MG TABLET PO SCH (10:12)
[2017-02-05] MEDS: FOLIC/VIT B COMP W-C (RENAL) TABLET. PO SCH (10:13)
[2017-02-05] MEDS: ASPIRIN CHEWABLE 81 MG TABLET. PO SCH (10:13)
[2017-02-05] MEDS: PANTOPRAZOLE 40 MG TABLET.DR. PO SCH (10:13)
[2017-02-05] MEDS: DORZOLAMIDE/TIMOLOL 2%/0.5% OPHTH SOLUTION 10ML BOTTLE. OU SCH (10:14)
[2017-02-05] MEDS: BRIMONIDINE 0.2% OPHTH SOLUTION 5ML BOTTLE. OD SCH (10:14)
[2017-02-05] MEDS: CARVEDILOL 12.5 MG TABLET. PO SCH ×2 (10:14→16:19)
[2017-02-05] MEDS ORDERED: DIALYSIS PATIENT. MC PRN (10:15)
[2017-02-05] MEDS: INSULIN ASPART 300 UNITS/3 ML INSULN.PEN SQ SCH ×2 (10:22→12:57)
--- NOTE | 2017-02-05 10:45 | PDOC ---
PROGRESS NOTES Subjective Subjective feels better. denies chest pain or shortness of breath. blood pressure better. dialyzed yesterday. Objective Objective Vital Signs Date Time Temp Pulse Resp B/P (MAP) Pulse Ox O2 Delivery O2 Flow Rate FiO2 02/05/17 10:14 69 154/58 02/05/17 07:00 98.0 20 93 Nasal Cannula 3.0 98.0 Intake and Output 02/05/17 07:00 Intake Total 1405 ml Balance 1405 ml Intake Oral 1180 ml IV Total 225 ml # Voids 1 Physical Exam Abdomen: Soft Heart: Regular rate, Normal S1, Normal S2 Extremities: No edema General: Alert HEENT: Atraumatic Lungs: Clear to auscultation Neuro: Normal speech Psych/Mental Status: Mental status NL Skin: No rashes Assessment Assessment Problems1. Accelerated hypertension resolved. BP better 2. Atypical chest pain with essentially normal cardiac catheterization in March 2015. 3. End-stage renal disease, treated with hemodialysis. 4. Diabetes mellitus type 2, treated with diet. 5. Chronic hypoxic respiratory failure. 6. Obstructive sleep apnea. 7. Hyperlipidemia with statin intolerance. acute diastolic chf due to fluid overload resolved with hemodialysis Medical Problems: (1) Chest pain Status: Acute (2) End stage renal disease Status: Acute (3) Pulmonary edema Status: Acute (4) Type 2 diabetes mellitus Status: Acute Plan Plan of Care dismiss today out patient dialysis tomorrow Comment Review of Relevant I have reviewed the following items jorge (where applicable) has been applied. Labs Laboratory Tests Test 02/03/17 13:23 02/03/17 19:50 02/04/17 07:56 02/04/17 11:37 White Blood Count 6.8 x10^3/uL (4.0-11.0) Red Blood Count 4.17 x10^6/uL (3.50-5.40) Hemoglobin 12.2 g/dL (12.0-15.5) Hematocrit 38.1 % (36.0-47.0) Mean Corpuscular Volume 91 fL (79-100) Mean Corpuscular Hemoglobin 29 pg (25-35) Mean Corpuscular Hemoglobin Concent 32 g/dL (31-37) Red Cell Distribution Width 17.7 % (11.5-14.5) Platelet Count 222 x10^3/uL (140-400) Neutrophils (%) (Auto) 66 % (31-73) Lymphocytes (%) (Auto) 14 % (24-48) Monocytes (%) (Auto) 8 % (0-9) Eosinophils (%) (Auto) 11 % (0-3) Basophils (%) (Auto) 1 % (0-3) Neutrophils # (Auto) 4.5 x10^3uL (1.8-7.7) Lymphocytes # (Auto) 1.0 x10^3/uL (1.0-4.8) Monocytes # (Auto) 0.5 x10^3/uL (0.0-1.1) Eosinophils # (Auto) 0.7 x10^3/uL (0.0-0.7) Basophils # (Auto) 0.1 x10^3/uL (0.0-0.2) Sodium Level 139 mmol/L (136-145) Potassium Level 5.2 mmol/L (3.5-5.1) Chloride Level 103 mmol/L (98-107) Carbon Dioxide Level 23 mmol/L (21-32) Anion Gap 13 (6-14) Blood Urea Nitrogen 1 mg/dL (7-20) Creatinine 10.5 mg/dL (0.6-1.0) Estimated GFR (Cockcroft-Gault) 4.5 BUN/Creatinine Ratio 0 (6-20) Glucose Level 105 mg/dL (70-99) Calcium Level 10.6 mg/dL (8.5-10.1) Magnesium Level 2.1 mg/dL (1.8-2.4) Total Bilirubin 0.7 mg/dL (0.2-1.0) Aspartate Amino Transf (AST/SGOT) 19 U/L (15-37) Alanine Aminotransferase (ALT/SGPT) < 6 U/L (14-59) Alkaline Phosphatase 64 U/L (46-116) Creatine Kinase 108 U/L (26-192) Creatine Kinase MB (Mass) 1.5 ng/mL (0.0-3.6) Creatine Kinase MB Relative Index 1.4 % (0-4) Troponin I Quantitative < 0.017 ng/mL (0.000-0.055) KE-Lgf-S-Type Natriuretic Peptide > 01728 pg/mL (0-124) Total Protein 7.2 g/dL (6.4-8.2) Albumin 4.1 g/dL (3.4-5.0) Albumin/Globulin Ratio 1.3 (1.0-1.7) Glucose (Fingerstick) 93 mg/dL (70-99) 104 mg/dL (70-99) 166 mg/dL (70-99) Test 02/04/17 17:20 02/04/17 20:44 02/05/17 07:44 Glucose (Fingerstick) 162 mg/dL (70-99) 175 mg/dL (70-99) 147 mg/dL (70-99) Laboratory Tests Test 02/04/17 11:37 02/04/17 17:20 02/04/17 20:44 02/05/17 07:44 Glucose (Fingerstick) 166 mg/dL (70-99) 162 mg/dL (70-99) 175 mg/dL (70-99) 147 mg/dL (70-99) Medications Current Medications Aspirin (Children'S Aspirin) 324 mg 1X ONCE PO Last administered on 13:20; Start 02/03/17 at 12:15; Stop 02/03/17 at 12:16; Status DC Ondansetron HCl (Zofran) 4 mg PRN Q8HRS PRN IV NAUSEA/VOMITING; Start at 13:45; Stop 02/04/17 at 13:44; Status DC Fentanyl Citrate (Fentanyl 2ml Vial) 50 mcg PRN Q2HR PRN IV PAIN; Start at 13:45; Stop 02/04/17 at 13:44; Status DC Hydralazine HCl (Apresoline Inj) 10 mg PRN Q4HRS PRN IVP ELEVATED BP, SEE COMMENTS Last administered on 02/04/17 18:10; Start 02/03/17 at 13:45 Insulin Aspart (NovoLOG) 0-6 UNITS TIDWMEALS SQ Last administered on 10:22; Start 02/03/17 at 17:00 Dextrose (Dextrose 50%-Water Syringe) 12.5 gm PRN Q15MIN PRN IV SEE COMMENTS; Start 02/03/17 at 15:30 Acetaminophen (Tylenol) 325 mg PRN Q6HRS PRN PO PAIN; Start 02/03/17 at 15:30 Amlodipine Besylate (Norvasc) 5 mg DAILY PO Last administered on 02/04/17 09: 11; Start 02/04/17 at 09:00; Stop 02/04/17 at 11:15; Status DC Aspirin (Children'S Aspirin) 81 mg DAILY PO Last administered on 02/05/17 10: 13; Start 02/04/17 at 09:00 Carvedilol (Coreg) 12.5 mg BIDWMEALS PO Last administered on 02/04/17 09:11; Start 02/03/17 at 18:00; Stop 02/04/17 at 11:09; Status DC Cinacalcet (Sensipar) 60 mg DAILY PO Last administered on 02/05/17 10:12; Start 02/04/17 at 09:00 Dorzolamide/ Timolol (Cosopt) 1 drop BID OU Last administered on 02/05/17 10: 14; Start 02/03/17 at 21:00 Vitamin B Complex/ Vitamin C (Christen-Johnny) 1 tab DAILY PO Last administered on 10:13; Start 02/04/17 at 09:00 Brimonidine Tartrate (Alphagan) 1 drop BID OD Last administered on 02/05/17 10:14; Start 02/03/17 at 21:00 Pantoprazole Sodium (Protonix) 40 mg DAILYAC PO Last administered on 10:13; Start 02/04/17 at 07:30 Nicardipine HCl 50 mg/Sodium Chloride 270 ml @ 25 mls/hr CONT PRN IV SEE I/O RECORD Last administered on 02/03/17 20:00; Start 02/03/17 at 20:00; Stop at 11:15; Status DC Carvedilol (Coreg) 25 mg BIDWMEALS PO Last administered on 02/05/17 10:14; Start 02/04/17 at 17:00 Carvedilol (Coreg) 12.5 mg 1X ONCE PO Last administered on 02/04/17 11:34; Start 02/04/17 at 11:15; Stop 02/04/17 at 11:16; Status DC Amlodipine Besylate (Norvasc) 10 mg DAILY PO Last administered on 11/26/17at 10 :13; Start 02/05/17 at 09:00 Amlodipine Besylate (Norvasc) 5 mg 1X ONCE PO Last administered on 02/04/17t 12:37; Start 02/04/17 at 13:00; Stop 02/04/17 at 13:01; Status DC Info (PHARMACY MONITORING -- do not chart) 1 each PRN DAILY PRN MC SEE COMMENTS ; Start 02/05/17 at 10:15 Active Scripts Active Amlodipine Besylate 5 Mg Tablet 5 Mg PO DAILY Carvedilol 12.5 Mg Tablet 1 Tab PO BID Reported Albuterol Sulfate Neb Soln (Albuterol Sulfate) 0.63 Mg/3 Ml Vial.neb 1 Vial NEB QID Levemir (Insulin Detemir) 100 Unit/1 Ml Vial 4 Unit SQ QHS Novolog Flexpen (Insulin Aspart) 100 Unit/1 Ml Insuln.pen 4 Unit SQ TIDAC Phoslo (Calcium Acetate) 667 Mg Capsule 2 Cap PO QHS Phoslo (Calcium Acetate) 667 Mg Capsule 3 Cap PO TIDWMEALS Symbicort 160-4.5 Mcg Inhaler (Budesonide/Formoterol Fumarate) 10.2 Gm Hfa.aer.ad 2 Puff IH BID Nephro-Johnny Tablet (Folic Acid/Vitamin B Comp W-C) 0.8 Mg Tablet 1 Tab PO DAILY Alphagan P (Brimonidine Tartrate) 5 Ml Drops 1 Drop OD BID Sensipar (Cinacalcet Hcl) 30 Mg Tablet 60 Mg PO DAILY Prilosec (Omeprazole) 20 Mg Capsule.dr 1 Cap PO DAILY Tylenol (Acetaminophen) 325 Mg Tablet 325 Mg PO Q4-6HRS PRN Proair Hfa Inhaler (Albuterol Sulfate) 8.5 Gm Hfa.aer.ad 2 Puff IH PRN Q4-6HRS Cosopt Eye Drops (Dorzolamide Hcl/Timolol Maleat) 10 Ml Drops 1 Drop EACHEYE BID Aspirin 81 Mg Tab.chew 81 Mg PO DAILY Vitals/I & O Vital Sign - Last 24 Hours 02/04/17 02/04/17 02/04/17 02/04/17 11:00 11:34 12:37 15:00 Temp 97.5 98.1 97.5 98.1 Pulse 74 67 67 66 Resp 16 16 B/P (MAP) 128/63 (84) 168/64 168/64 160/69 (99) Pulse Ox 100 99 O2 Delivery Nasal Cannula Nasal Cannula O2 Flow Rate 3.0 3.0 02/04/17 02/04/17 02/04/17 02/04/17 16:36 18:10 19:45 19:59 Temp 98.3 98.3 Pulse 75 75 65 Resp 18 B/P (MAP) 169/70 169/70 137/55 (82) Pulse Ox 97 O2 Delivery Nasal Cannula Nasal Cannula O2 Flow Rate 3.0 3.0 02/04/17 02/05/17 02/05/17 02/05/17 22:51 03:18 07:00 10:13 Temp 98.2 98.2 98.0 98.2 98.2 98.0 Pulse 67 69 74 69 Resp 16 16 20 B/P (MAP) 125/52 (76) 135/53 (80) 154/58 (90) 154/58 Pulse Ox 98 95 93 O2 Delivery Nasal Cannula Nasal Cannula Nasal Cannula O2 Flow Rate 3.0 3.0 3.0 02/05/17 10:14 Pulse 69 B/P (MAP) 154/58 Intake and Output 02/04/17 02/04/17 02/05/17 15:00 23:00 07:00 Intake Total 360 ml 545 ml 500 ml Balance 360 ml 545 ml 500 ml DIVINA BRIGGS MD Feb 05, 2017 10:45
--- NOTE | 2017-02-05 10:52 | DISCH ---
DISCHARGE INSTRUCTIONS Condition on Discharge Condition on Discharge: Stable Activity After Discharge Activity Instructions for Disc: Resume previous activity Diet after Discharge Diet after Discharge: Renal Dialysis, Diabetic No Calorie Level Contacting the after DC Call your doctor for: If your condition worsens Follow-Up Follow up with: dr. briggs in 1 week DIVINA BRIGGS MD Feb 05, 2017 10:52
[2017-02-05] MEDS ORDERED: AMLO10TA2 PO (10:56)
[2017-02-05] MEDS ORDERED: CARV25TA2 PO (10:56)
[2017-02-05 11:00] VITALS: BP 109/58
--- NOTE | 2017-02-05 11:01 | PDOC ---
Provider Note Provider Note discharge summary dictated # [id number] DIVINA BRIGGS MD Feb 05, 2017 11:01
--- NOTE | 2017-02-05 12:50 | DS ---
DATE OF DISCHARGE: 02/05/2017 CONSULTANTS: Dr. Bajwa and Dr. Cali. PROCEDURE: Hemodialysis. FINAL DIAGNOSES: 1. Accelerated hypertension. 2. Atypical chest pain. 3. Acute diastolic congestive heart failure. 4. End-stage renal disease, treated with hemodialysis. 5. Diabetes mellitus type 2, treated with a diet. 6. Chronic hypoxic respiratory failure. 7. Obstructive sleep apnea. 8. Asthma. 9. Hyperlipidemia with statin intolerance. HOSPITAL COURSE: The patient is a 66-year-old -German female with history of diabetes mellitus type 2, treated with diet; hypertension, hyperlipidemia, statin intolerance, has chronic hypoxic respiratory failure, on continuous oxygen 3 liters per nasal cannula, who has end-stage renal disease, treated with hemodialysis Mondays, Wednesdays, Fridays. She was at hemodialysis when she developed some chest pain and high blood pressure, was sent to the [facility] Emergency Room, where systolic blood pressure was quite high exceeding 200 and received IV labetalol and was started on IV Cardene drip. Seen in consultation by Dr. Bajwa. The patient's cardiac enzyme was negative. It should be noted that she underwent a cardiac catheterization in 03/2015, which showed normal coronary arteries and an echocardiogram at that time showed a preserved left ventricular ejection fraction. The chest pain did resolve, and it was felt secondary to the accelerated hypertension. She did have acute diastolic congestive heart failure, which was treated with hemodialysis as she was not dialyzed today after the chest pain. So she was dialyzed on Monday, seen in consultation by Dr. Cali for Nephrology. Yesterday, her IV Cardene was discontinued, and her amlodipine and carvedilol were increased. Her blood pressure is improved today. She denies any chest pain or shortness of breath at this time. She therefore will be dismissed to home on amlodipine 10 mg everyday, carvedilol 25 mg b.i.d., albuterol inhaler 2 puffs every 4 hours p.r.n., albuterol nebulizer treatments q.i.d. p.r.n. She is on Symbicort 2 puffs b.i.d., Sensipar 60 mg every day, Nephro-Johnny 1 everyday. She will also be dismissed on brimonidine 0.2% eyedrops 1 drop b.i.d. to both eyes and also will be dismissed on dorzolamide/timolol 2%/0.5%, which is Cosopt, one drop in both eyes b.i.d. She will go to her outpatient hemodialysis on Monday, Wednesdays and Fridays, told to make an appointment to see Dr. La in the office in 1 week. She will continue with her aspirin 81 mg every day. DIVINA LA MD DR: AZUCENA/miles JOB#: [id number] / [id number]
[2017-02-05 14:56] VITALS: BP 125/59
[2017-02-05 16:19] VITALS: BP 125/55
--- NOTE | 2017-02-06 15:11 | CARD ---
APPROVED REPORT EXAM: Two-dimensional and M-mode echocardiogram with Doppler and color Doppler. Other Information Quality : Good INDICATION Congestive Heart Failure 2D DIMENSIONS Left Atrium(2D)4.0 (1.6-4.0cm)IVSd1.1 (0.7-1.1cm) Aortic Root(2D)3.0 (2.0-3.7cm)LVDd5.3 (3.9-5.9cm) LVOT Diameter2.0 (1.8-2.4cm)PWd1.1 (0.7-1.1cm) LVDs3.6 (2.5-4.0cm)FS (%) 31.7 % SV81.3 mlLVEF(%)55.0 (>50%) Aortic Valve AoV Peak Manjeet.174.2cm/sAoV VTI41.4cm AO Peak GR.12.1mmHgLVOT Peak Manjeet.121.1cm/s AO Mean GR.7mmHgAVA (VMAX)2.14cm2 DANELLE (VTI)2.00cm2 Mitral Valve MV E Vnpguzbu884.6cm/sMV DECEL NPGW441pm MV A Mbfrpczg59.6cm/sE/A Ratio1.6 Tricuspid Valve TR P. Ubaeoqdi027fk/sRAP QTKCEWJR5diAy TR Peak Gr.80wqXcKYBH39pbMf LEFT VENTRICLE The left ventricle is normal size. There is borderline to mild concentric left ventricular hypertroph y. Left ventricle systolic function is normal. The Ejection Fraction is 55%. There is normal LV segme ntal wall motion. Tissue Doppler imaging reveals mild left ventricular diastolic dysfunction. RIGHT VENTRICLE The right ventricle is mildly dilated. The right ventricular systolic function is normal. ATRIA The left atrium size is normal. The right atrium is mildly dilated. The interatrial septum is intact with no evidence for an atrial septal defect or patent foramen ovale as noted on 2-D or Doppler imagi ng. AORTIC VALVE The aortic valve is mildly calcified but opens well. Doppler and Color Flow revealed no significant a ortic regurgitation. There is no significant aortic valvular stenosis. MITRAL VALVE The mitral valve is calcified but opens well. There is no evidence of mitral valve prolapse. There is no mitral valve stenosis. Doppler and Color-flow revealed mild mitral regurgitation. TRICUSPID VALVE The tricuspid valve is normal in structure. Doppler and Color Flow revealed mild tricuspid regurgitat ion. There is mild pulmonary hypertension. The PA pressure was estimated at 39 mmHg. There is no tric uspid valve prolapse or vegetation. There is no tricuspid valve stenosis. PULMONIC VALVE The pulmonary valve is normal in structure and function. Doppler and Color Flow revealed no pulmonic valvular regurgitation. There is no pulmonic valvular stenosis. GREAT VESSELS The aortic root is normal in size. The ascending aorta is normal in size. The IVC is normal in size a nd collapses >50% with inspiration. PERICARDIAL EFFUSION There is no pleural effusion. There is no evidence of significant pericardial effusion. Critical Notification Critical Value: No <Conclusion> There is borderline to mild concentric left ventricular hypertrophy. Left ventricle systolic function is normal. The Ejection Fraction is 55%. Tissue Doppler imaging reveals mild left ventricular diastolic dysfunction. The right ventricle is mildly dilated. The left atrium size is normal. The right atrium is mildly dilated. The aortic valve is mildly calcified but opens well. Doppler and Color-flow revealed mild mitral regurgitation. Doppler and Color Flow revealed mild tricuspid regurgitation. There is mild pulmonary hypertension. The PA pressure was estimated at 39 mmHg. The pulmonary valve is normal in structure and function. There is no evidence of significant pericardial effusion.
== END 2017-02-05 16:30 | disposition home or self-care (01) | DRG 291 ==
LOC: ER 11:02 → 2 NORTH 12:57
PROVIDERS: ADMIT Internal Medicine; ATTEND Internal Medicine
DX: I13.2 Hypertensive heart and chronic kidney disease with heart failure and with stage 5 chronic kidney disease, or end stage renal disease (principal); I50.31 Acute diastolic (congestive) heart failure; J96.11 Chronic respiratory failure with hypoxia; E11.22 Type 2 diabetes mellitus with diabetic chronic kidney disease; E11.42 Type 2 diabetes mellitus with diabetic polyneuropathy; N18.6 End stage renal disease; N25.81 Secondary hyperparathyroidism of renal origin; D63.1 Anemia in chronic kidney disease; E87.5 Hyperkalemia; E78.00 Pure hypercholesterolemia, unspecified; E78.5 Hyperlipidemia, unspecified; G47.33 Obstructive sleep apnea (adult) (pediatric); H40.9 Unspecified glaucoma; I16.0 Hypertensive urgency; I25.10 Atherosclerotic heart disease of native coronary artery without angina pectoris; M19.90 Unspecified osteoarthritis, unspecified site; J45.909 Unspecified asthma, uncomplicated; E66.9 Obesity, unspecified; Z79.51 Long term (current) use of inhaled steroids; Z79.82 Long term (current) use of aspirin; Z82.49 Family history of ischemic heart disease and other diseases of the circulatory system; Z83.3 Family history of diabetes mellitus; Z86.73 Personal history of transient ischemic attack (TIA), and cerebral infarction without residual deficits; Z99.2 Dependence on renal dialysis; Z91.040 Latex allergy status; Z99.81 Dependence on supplemental oxygen; Z68.34 Body mass index [BMI] 34.0-34.9, adult; Z90.89 Acquired absence of other organs; Z91.018 Allergy to other foods
CPT/HCPCS: 36415; 71010; 80053; 82553; 82962; 83735; 83880; 84484; 85025; 93005; 93306; J0360; J1815; J7050; 99285-25; J7030

== ENCOUNTER 2018-05-23 09:58 | Inpatient (IN) | payer MEDICARE ==
[~2018-05-23] VITALS: Ht 162.6 cm; Wt 78.9 kg
[~2018-05-23 09:58] MED LIST changes: +ALBU0.63 NEB; +ALBU2.5V8 IH; -AMLO10TA2 PO; +AMLO10TA8 PO; +AMLO5TAB10 PO; -AMLO5TAB2 PO; +CARV12.511 PO; -CARV12.52 PO; +LISI-130 PO; -LISI40TA PO; +LOSA-73 PO; -PROAIR HFA8.5 GM IH; +SEVE800T9 PO
[2018-05-23] MEDS ORDERED: FAMOTIDINE 20 MG/2 ML VIAL IVP ONE (10:30)
[2018-05-23] MEDS ORDERED: IV NORMAL SALINE 250ML 250 ML IV ONE (10:30)
[2018-05-23] MEDS ORDERED: ONDANSETRON PF 4 MG/2 ML VIAL. IV ONE (10:30)
--- NOTE | 2018-05-23 10:39 | PHYS DOC ---
Past Medical History Past Medical History: Asthma, Diabetes-Type II, Glaucoma, High Cholesterol, Hypertension, Renal Failure Additional Past Medical Histor: obesity Past Surgical History: Cholecystectomy Additional Past Surgical Histo: Rt arm shunt, back, L arm shunt Alcohol Use: None Drug Use: None Adult General HPI HPI Patient is a 67 year old female with history of hypertension, diabetes, end- stage renal disease on dialysis Monday last dialyzed on Monday this week who presents to the ED today complaining of epigastric abdominal pain described as sharp and mild that has been intermittently since yesterday. Patient denies any hematemesis or melena. Denies any fever Review of Systems Review of Systems Constitutional: Denies fever or chills [] Eyes: Denies change in visual acuity, redness, or eye pain [] HENT: Denies nasal congestion or sore throat [] Respiratory: Denies cough or shortness of breath [] Cardiovascular: No additional information not addressed in HPI [] GI: Reports epigastric abdominal pain, nausea vomiting and diarrhea : Denies dysuria or hematuria [] Musculoskeletal: Denies back pain or joint pain [] Integument: Denies rash or skin lesions [] Neurologic: Denies headache, focal weakness or sensory changes [] All other systems were reviewed and found to be within normal limits, except as documented in this note. Current Medications Current Medications Current Medications Medications (Trade) Dose Ordered Sig/Barbara Start Time Stop Time Status Last Admin Dose Admin Famotidine (Pepcid Vial) 20 mg 1X ONCE 05/23/18 10:30 05/23/18 10:31 DC 05/23/18 11:00 20 MG Hydralazine HCl (Apresoline Inj) 10 mg 1X ONCE 05/23/18 12:00 05/23/18 12:01 DC 05/23/18 13:30 10 MG Iohexol (Omnipaque 300 Mg/ml) 75 ml 1X ONCE 05/23/18 12:15 05/23/18 12:16 DC Ondansetron HCl (Zofran) 4 mg 1X ONCE 05/23/18 10:30 05/23/18 10:31 DC 05/23/18 10:57 4 MG Sodium Chloride 250 ml @ 250 mls/hr 1X ONCE 05/23/18 10:30 05/23/18 11:29 DC 05/23/18 11:05 250 MLS/HR Allergies Allergies Allergies Coded Allergies Type Severity Reaction Last Updated Verified latex Allergy Intermediate 04/11/15 Yes milk Allergy Intermediate 04/11/15 Yes Physical Exam Physical Exam Constitutional: Well developed, well nourished, no acute distress, non-toxic appearance. [] HENT: Normocephalic, atraumatic, bilateral external ears normal, oropharynx moist, no oral exudates, nose normal. [] Eyes: PERRLA, EOMI, conjunctiva normal, no discharge. Left eye is blind Neck: Normal range of motion, no tenderness, supple, no stridor. [] Cardiovascular:Heart rate regular rhythm, no murmur [] Lungs & Thorax: Bilateral breath sounds clear to auscultation [] Abdomen: Bowel sounds normal, soft, diffuse tenderness throughout the abdomen worse on the epigastric region, no masses, no pulsatile masses. Patient is dry heaving on arrival to the ED. Skin: Warm, dry, no erythema, no rash. Dialysis fistula noted on the left upper extremity with +thrill and bruit Back: No tenderness, no CVA tenderness. [] Extremities: No tenderness, no cyanosis, no clubbing, ROM intact, no edema. [] Neurologic: Alert and oriented X 3, normal motor function, normal sensory function, no focal deficits noted. [] Psychologic: Affect normal, judgement normal, mood normal. [] Current Patient Data Vital Signs Vital Signs Date Time Temp Pulse Resp B/P (MAP) Pulse Ox O2 Delivery O2 Flow Rate FiO2 05/23/18 11:00 80 14 207/92 (130) 100 Nasal Cannula 2.0 05/23/18 09:58 98.3 98.3 Lab Values Laboratory Tests Test 05/23/18 11:10 05/23/18 11:20 Influenza Type A Antigen Negative (NEGATIVE) Influenza Type B Antigen Negative (NEGATIVE) White Blood Count 6.6 x10^3/uL (4.0-11.0) Red Blood Count 3.82 x10^6/uL (3.50-5.40) Hemoglobin 11.0 g/dL (12.0-15.5) L Hematocrit 34.3 % (36.0-47.0) L Mean Corpuscular Volume 90 fL (79-100) Mean Corpuscular Hemoglobin 29 pg (25-35) Mean Corpuscular Hemoglobin Concent 32 g/dL (31-37) Red Cell Distribution Width 14.7 % (11.5-14.5) H Platelet Count 197 x10^3/uL (140-400) Neutrophils (%) (Auto) 88 % (31-73) H Lymphocytes (%) (Auto) 3 % (24-48) L Monocytes (%) (Auto) 6 % (0-9) Eosinophils (%) (Auto) 4 % (0-3) H Basophils (%) (Auto) 0 % (0-3) Neutrophils # (Auto) 5.8 x10^3uL (1.8-7.7) Lymphocytes # (Auto) 0.2 x10^3/uL (1.0-4.8) L Monocytes # (Auto) 0.4 x10^3/uL (0.0-1.1) Eosinophils # (Auto) 0.3 x10^3/uL (0.0-0.7) Basophils # (Auto) 0.0 x10^3/uL (0.0-0.2) Segmented Neutrophils % 71 % (35-66) H Band Neutrophils % 20 % (0-9) H Lymphocytes % 3 % (24-48) L Monocytes % 3 % (0-10) Eosinophils % 3 % (0-5) Platelet Estimate Adequate (ADEQUATE) Anisocytosis Slight Ovalocytes Few Sodium Level 142 mmol/L (136-145) Potassium Level 5.8 mmol/L (3.5-5.1) H Chloride Level 103 mmol/L (98-107) Carbon Dioxide Level 30 mmol/L (21-32) Anion Gap 9 (6-14) Blood Urea Nitrogen 73 mg/dL (7-20) H Creatinine 8.0 mg/dL (0.6-1.0) H Estimated GFR (Cockcroft-Gault) 6.1 BUN/Creatinine Ratio 9 (6-20) Glucose Level 150 mg/dL (70-99) H Calcium Level 9.1 mg/dL (8.5-10.1) Magnesium Level 2.3 mg/dL (1.8-2.4) Total Bilirubin 0.4 mg/dL (0.2-1.0) Aspartate Amino Transferase (AST) 13 U/L (15-37) L Alanine Aminotransferase (ALT) 13 U/L (14-59) L Alkaline Phosphatase 91 U/L (46-116) Creatine Kinase 56 U/L (26-192) Creatine Kinase MB (Mass) 1.2 ng/mL (0.0-3.6) Creatine Kinase MB Relative Index % (0-4) Troponin I Quantitative < 0.017 ng/mL (0.000-0.055) XJ-Dzn-J-Type Natriuretic Peptide 46190 pg/mL (0-124) H Total Protein 7.3 g/dL (6.4-8.2) Albumin 3.1 g/dL (3.4-5.0) L Albumin/Globulin Ratio 0.7 (1.0-1.7) L Lipase 228 U/L (73-393) Laboratory Tests 05/23/18 11:20 Laboratory Tests 05/23/18 11:20 EKG EKG Interpreted by Dr. Skaggs sinus rhythm HR 84 no STEMI[] Radiology/Procedures Radiology/Procedures []PROCEDURE: CT ABD PELV W/ IV CONTRST ONLY PQRS Compliance Statement: One or more of the following individualized dose reduction techniques were utilized for this examination: 1. Automated exposure control 2. Adjustment of the mA and/or kV according to patient size 3. Use of iterative reconstruction technique CT ABD PELV W/ IV CONTRST ONLY Clinical Indication: ABD PAIN NVD DIALYSIS PT Comparison: CT chest without contrast, January 27, 2015. Technique: Helical CT imaging of the abdomen and pelvis is performed after 75 cc of Omnipaque 300 IV contrast. Oral contrast not given. Findings: Linear scarring or atelectasis in the periphery of the lower lobes. There is cardiomegaly. Coronary artery disease. Contrast opacifies venous collaterals of the right lower chest wall. Cholecystectomy. Liver is homogeneous. Dominant cystic lesion in the spleen is multilobular and has increased in size from prior study. Attenuation measures simple fluid. There is moderate atherosclerotic calcification throughout the abdomen. Pancreas is homogeneous. 1.3 cm right adrenal myelolipoma. There are numerous small cysts of the kidneys. There is no hydronephrosis. No obvious abnormality of the stomach. The appendix is normal. No evidence of small bowel obstruction. Many of the small bowel loops are fluid-filled. Much of the colon is fluid-filled. No colon wall thickening is identified. There is no abdominal adenopathy or free fluid. Urinary bladder is not well distended. Large calcified uterine fibroid. No pelvic free fluid. The visualized thoracolumbar spine is diffusely sclerotic. In the absence of history of primary latency such as breast cancer, finding is probably due to renal osteodystrophy. Grade 1 anterolisthesis of L5 on S1. No L5 spondylolysis. IMPRESSION: 1. No evidence of bowel obstruction. Most of the small bowel and colon is fluid-filled which may relate to provided history of diarrhea. 2. Large cystic mass of the spleen has increased in size from 2015 suggesting a benign or indolent process. 3. Large calcified uterine fibroid. 4. Diffusely sclerotic thoracolumbar spine is probably due to renal osteodystrophy. 5. Small right adrenal myelolipoma. Electronically signed by: Marcello Valentino MD (05/23/2018 12:31 PM) [id number] DICTATED and SIGNED BY: MARCELLO VALENTINO MD DATE: 05/23/18 1231 Course & Med Decision Making Course & Med Decision Making Pertinent Labs and Imaging studies reviewed. (See chart for details) This is a 67-year-old female patient with end-stage renal disease currently on dialysis presenting with epigastric abdominal pain, nausea, vomiting and diarrhea since yesterday. Patient missed dialysis today due to her symptoms. CBC within normal WBC, CMP with potassium of 5.8, no EKG changes-dialysis will correct the hyperkalemia, creatinine 8.0 and BUN of 73 CT of the abdomen and pelvic was negative for any acute findings. Spoke with Dr. Perkins who will dialyze patient Spoke with Dr. La who accepted patient for admission. Dragon Disclaimer Dragon Disclaimer This electronic medical record was generated, in whole or in part, using a voice recognition dictation system. Departure Departure Impression: Primary Impression: End stage renal disease Additional Impressions: Intractable nausea and vomiting Diarrhea Hyperkalemia Disposition: ADMITTED INPATIENT Condition: STABLE Referrals: DIVINA LA MD (PCP) Problem Qualifiers Additional Impressions: Intractable nausea and vomiting Vomiting type: unspecified Qualified Codes: R11.2 - Nausea with vomiting, unspecified Diarrhea Diarrhea type: unspecified type Qualified Codes: R19.7 - Diarrhea, unspecified MUTUNGA,YURI CHECKER [employer]OUNDS May 23, 2018 10:39
[2018-05-23 11:25] LABS: BASO % 0 % (0-3); EOS # 0.3 x10^3/uL (0.0-0.7); EOS % 4 % (0-3); HEMATOCRIT 34.3 % (36.0-47.0); LYMPH # 0.2 x10^3/uL (1.0-4.8); LYMPH % 3 % (24-48); MEAN CORPUSCULAR HEMOGLOBIN 29 pg (25-35); MEAN CORPUSCULAR HGB CONC 32 g/dL (31-37); MEAN CORPUSCULAR VOLUME 90 fL (79-100); MONO # 0.4 x10^3/uL (0.0-1.1); MONO % 6 % (0-9); NEUT # 5.8 x10^3uL (1.8-7.7); NEUT % 88 % (31-73); PLATELET COUNT 197 x10^3/uL (140-400); RED BLOOD COUNT 3.82 x10^6/uL (3.50-5.40); RED CELL DISTRIBUTION WIDTH 14.7 % (11.5-14.5); WHITE BLOOD COUNT 6.6 x10^3/uL (4.0-11.0)
--- NOTE | 2018-05-23 11:32 | RAD ---
EXAM: Two view abdomen with one view chest HISTORY: Abdominal pain, nausea/vomiting/diarrhea. COMPARISON: None. FINDINGS: A frontal view of the chest and supine/upright views of the abdomen are obtained. Hyperinflation is consistent with chronic obstructive pulmonary disease. There are no confluent infiltrates. Trace pleural effusions are likely present. There is no pneumothorax. The heart is moderately enlarged. Calcified mediastinal lymph nodes are likely secondary to old granulomatous disease. Chronic bilateral rib fractures are noted. Atherosclerotic calcifications are noted. There is no pneumoperitoneum. There are no distended small bowel loops or significant air-fluid levels. There is gas distally. A 5.5 cm calcification in the left hemipelvis is likely a degenerated fibroid. Cholecystectomy clips are noted. IMPRESSION: 1. Chronic obstructive pulmonary disease. Trace pleural effusions. Moderate cardiomegaly. 2. No evidence of obstruction. 3. 5.5 cm calcified uterine fibroid. Electronically signed by: Yuly Villela MD (05/23/2018 11:28 AM) [id number]
[2018-05-23 11:37] LABS: INFLUENZA A PATIENT NEGATIVE (NEGATIVE); INFLUENZA B PATIENT NEGATIVE (NEGATIVE)
[2018-05-23 11:45] LABS: CALCIUM 9.1 mg/dL (8.5-10.1); GFR 6.1; POTASSIUM 5.8 mmol/L (3.5-5.1)
[2018-05-23 11:51] LABS: ALBUMIN 3.1 g/dL (3.4-5.0); ALBUMIN/GLOBULIN RATIO 0.7 (1.0-1.7); MAGNESIUM 2.3 mg/dL (1.8-2.4); TOTAL BILIRUBIN 0.4 mg/dL (0.2-1.0); TOTAL PROTEIN 7.3 g/dL (6.4-8.2)
[2018-05-23 12:00] LABS: CREATINE KINASE 56 U/L (26-192)
[2018-05-23] MEDS ORDERED: hydrALAZINE 20 MG/ML VIAL. IVP ONE (12:00)
[2018-05-23] MEDS ORDERED: IOHEXOL 300 MG/ML 100ML VIAL. IV ONE (12:15)
[2018-05-23 12:17] LABS: % BANDS 20 % (0-9); % EOS 3 % (0-5); % LYMPHS 3 % (24-48)
[2018-05-23 12:18] LABS: % MONOS 3 % (0-10); % SEGS 71 % (35-66); PLT ESTIMATE ADEQUATE (ADEQUATE)
[2018-05-23 12:19] LABS: ANISOCYTOSIS SLIGHT; OVALOCYTES FEW
--- NOTE | 2018-05-23 12:34 | RAD ---
PQRS Compliance Statement: One or more of the following individualized dose reduction techniques were utilized for this examination: 1. Automated exposure control 2. Adjustment of the mA and/or kV according to patient size 3. Use of iterative reconstruction technique CT ABD PELV W/ IV CONTRST ONLY Clinical Indication: ABD PAIN NVD DIALYSIS PT Comparison: CT chest without contrast, January 27, 2015. Technique: Helical CT imaging of the abdomen and pelvis is performed after 75 cc of Omnipaque 300 IV contrast. Oral contrast not given. Findings: Linear scarring or atelectasis in the periphery of the lower lobes. There is cardiomegaly. Coronary artery disease. Contrast opacifies venous collaterals of the right lower chest wall. Cholecystectomy. Liver is homogeneous. Dominant cystic lesion in the spleen is multilobular and has increased in size from prior study. Attenuation measures simple fluid. There is moderate atherosclerotic calcification throughout the abdomen. Pancreas is homogeneous. 1.3 cm right adrenal myelolipoma. There are numerous small cysts of the kidneys. There is no hydronephrosis. No obvious abnormality of the stomach. The appendix is normal. No evidence of small bowel obstruction. Many of the small bowel loops are fluid-filled. Much of the colon is fluid-filled. No colon wall thickening is identified. There is no abdominal adenopathy or free fluid. Urinary bladder is not well distended. Large calcified uterine fibroid. No pelvic free fluid. The visualized thoracolumbar spine is diffusely sclerotic. In the absence of history of primary latency such as breast cancer, finding is probably due to renal osteodystrophy. Grade 1 anterolisthesis of L5 on S1. No L5 spondylolysis. IMPRESSION: 1. No evidence of bowel obstruction. Most of the small bowel and colon is fluid-filled which may relate to provided history of diarrhea. 2. Large cystic mass of the spleen has increased in size from 2015 suggesting a benign or indolent process. 3. Large calcified uterine fibroid. 4. Diffusely sclerotic thoracolumbar spine is probably due to renal osteodystrophy. 5. Small right adrenal myelolipoma. Electronically signed by: Marcello Valentino MD (05/23/2018 12:31 PM) [id number]
--- NOTE | 2018-05-23 12:53 | EKG ---
[facility] [address] [place] [id number] Test Date: 2018-05-23 Test Time: 10:18:11 Pat Name: STANLEY TAN Department: Room: Gender: F [employer] Instrument [employer]r: : [id number] Requested By: YURI GARCIA Order Number: [id number] Reading MD: Bethel Neal MD Measurements Intervals Bessie Rate: 83 P: 61 WI: 154 QRS: -8 QRSD: 80 T: 86 QT: 354 QTc: 421 Interpretive Statements SINUS RHYTHM Electronically Signed On 05-31-2018 9:42:59 CDT by Bethel Neal MD
[2018-05-23] MEDS ORDERED: IV NORMAL SALINE 1000ML BAG 1,000 ML IV PRN ×2 (13:24)
[2018-05-23] MEDS ORDERED: LABETALOL 20 MG/4 ML DISP.SYRIN. IVP PRN (13:30)
[2018-05-23] MEDS ORDERED: DIALYSIS PATIENT. MC PRN ×2 (13:30)
[2018-05-23] MEDS ORDERED: ONDANSETRON PF 4 MG/2 ML VIAL. IV PRN ×2 (14:15→17:00)
[2018-05-23] MEDS ORDERED: MORPHINE SULFATE 4 MG/ML VIAL. IV PRN (14:15)
[2018-05-23] MEDS ORDERED: IV 1/2 NORMAL SALINE 1,000 ML IV SCH (14:15)
[2018-05-23] MEDS ORDERED: PROCHLORPERAZINE 10 MG/2 ML VIAL. IV PRN (14:15)
[2018-05-23] MEDS ORDERED: ACETAMINOPHEN 325 MG TABLET. PO PRN ×2 (15:45→17:00)
[2018-05-23] MEDS: CARVEDILOL 12.5 MG TABLET. PO SCH (17:00)
[2018-05-23] MEDS: SEVELAMER CARBONATE 800 MG TABLET. PO SCH (17:00)
--- NOTE | 2018-05-23 17:12 | PDOC ---
Provider Note Provider Note history and physical and LEDA dictated # [id number] DIVINA BRIGGS MD May 23, 2018 17:12
--- NOTE | 2018-05-23 18:56 | HP ---
ADMIT DATE: 05/23/2018 LOCATION: She is in room 576. HISTORY OF PRESENT ILLNESS: The patient is a 67-year-old -[place] female who has a history of end-stage renal disease, on hemodialysis Mondays, Wednesdays and Fridays; diabetes mellitus type 2, treated with diet; hypertension; hyperlipidemia; obstructive sleep apnea, treated with CPAP, who noted the onset of nausea, vomiting and diarrhea at 10 p.m. last night. She had some lower abdominal cramps. Denied any hematemesis. She felt feverish, but did not check her temperature. She denied any melena or hematochezia. She missed her hemodialysis this morning and eventually went to the [facility] Emergency Room. There she had labs. Her white count was normal at 6.6. The patient had a chest x-ray that was unremarkable. She had an acute abdominal series that showed COPD with no evidence of obstruction with a 5.5 cm calcified uterine fibroid. Then, she had a CAT scan of the abdomen and pelvis done, which showed no evidence of bowel obstruction. She had a lot of fluid filled small bowel and colon consistent with her gastroenteritis. She had a large cystic mass in the spleen, increasing in size since 2014 suggesting a benign or indolent process, large calcified uterine fibroid and a small right adrenal myelolipoma. The patient was seen during hemodialysis this evening. She did not take any of her medications this morning, did not eat or drink much at all today. ALLERGIES AND INTOLERANCES: INCLUDE LATEX, AND MILK. MEDICATIONS: Prior to admission include, she is on amlodipine 10 mg every day, carvedilol 25 mg b.i.d., losartan 50 mg every day, Nephro-Johnny 1 every day, pravastatin 40 mg every day, ProAir inhaler 2 puffs every 4 hours p.r.n., Renvela 1600 mg t.i.d. with meals, Sensipar 60 mg every day and Tylenol 325 mg p.r.n. She takes eyedrops for glaucoma. PAST MEDICAL AND SURGICAL HISTORY: Significant for end-stage renal disease on hemodialysis Mondays, Wednesdays and Monday; diabetes mellitus type 2, treated with diet; hypertension and hyperlipidemia; obstructive sleep apnea, treated with CPAP. She had a normal cardiac catheterization in 04/2015, had a right cataract extraction. She has obstructive sleep apnea, treated with CPAP; laser surgery in both eyes; benign right breast biopsy; open reduction and internal fixation for right bimalleolar fracture in 2006; colonoscopy with biopsy and had colon polyps in 2013. She had a non-ST segment elevated myocardial infarction in 2012 with small vessel disease noted on cardiac catheterization in 2012. Cor pulmonale in 2010, pulmonary emboli in 2006. Diabetes mellitus type 2 and as mentioned, treated with diet; glaucoma. SOCIAL HISTORY: She does not drink alcohol nor does she smoke cigarettes. FAMILY HISTORY: Father and mother and sister had diabetes mellitus. Brother had a myocardial infarction. REVIEW OF SYSTEMS: GENERAL: She felt feverish last night, but did not check her temperature. CARDIOVASCULAR: No chest pain. PULMONARY: No cough or shortness of breath. GASTROINTESTINAL: She had nausea, vomiting and diarrhea. ENDOCRINE: Diabetes mellitus. SKIN: No rashes. The rest of systems reviewed and negative except as stated in history of present illness. PHYSICAL EXAMINATION: VITAL SIGNS: Temperature is 98.3 degrees, apical pulse regular at 79, respiratory rate 18, blood pressure 185/84, oxygen saturation 100% on 2 liters per nasal cannula. HEENT: She is blind in the left eye. Right eye has normal movement. Mouth is symmetrical. NECK: No cervical lymphadenopathy. HEART: Reveals an S1, S2. There is no S3 or murmur. LUNGS: Clear anteriorly. ABDOMEN: Soft, bowel sounds positive, not distended, mild tenderness in the lower abdomen and left lower quadrant without guarding. EXTREMITIES: Lower extremities without edema. Dorsalis pedis pulses 2+ bilaterally. SKIN: No rashes. NEUROLOGIC: Revealed no facial weakness. No focal weakness of the lower extremities. She is being dialyzed during my examination. SKIN: No rashes. LABORATORY DATA: The white count was 6.6, hemoglobin 11, platelet count 197,000, 88 polys and 3 lymphocytes. Sodium 142, potassium 5.8, chloride 103, total CO2 was 30. Blood sugar was 150. Liver function tests were normal. Albumin 3.1, lipase was 228. ProBNP was increased to 23,156, but she has end-stage renal disease, so it will be elevated. CPK of 56. Troponin level less than 0.017. Her influenza A and B were negative. EKG showed sinus rhythm, no acute change. Abdominal examination showed no obstruction, but did show COPD with trace pleural effusions and moderate cardiomegaly with a 5.5 cm calcified uterine fibroid. CAT scan of the abdomen and pelvis was done, which showed no evidence of bowel obstruction, but she had a large cystic mass in the spleen that has increased in size from 2015 suggesting a benign or indolent process. Also had a large calcified uterine fibroid, some sclerosis in the thoracic and lumbar spine and small right adrenal myelolipoma. ASSESSMENT: 1. Nausea, vomiting and diarrhea, most likely secondary to an acute gastroenteritis. 2. End-stage renal disease, on hemodialysis. 3. Hypertension. Her blood pressure is elevated. 4. Hyperlipidemia. 5. Diabetes mellitus type 2. 6. Obstructive sleep apnea. 7. Cystic splenic mass, which is slowly increasing in size since 2015. PLAN: At this time is to admit her to the hospital. She is currently receiving hemodialysis. Consult Dr. Perkins for the hemodialysis and consult Dr. Ferguson to evaluate this slowly enlarging cystic splenic mass, which appears to be containing some fluid. We will also check a CBC, BMP, magnesium tomorrow. Start on some Zofran 4 mg IV 6 hours p.r.n., Tylenol p.r.n. Resume her home medications for hypertension including amlodipine, losartan and carvedilol. Order SCDs for deep vein thrombosis prophylaxis. Continue eyedrops for glaucoma from home. Pravastatin is not on the formulary, so she will resume it when she leaves this facility. DIVINA BRIGGS MD DR: AZUCENA/miles JOB#: [id number] / [id number]
[2018-05-23 19:50] VITALS: BP 163/80
[2018-05-23 23:00] VITALS: BP 142/70
[2018-05-24 03:00] VITALS: BP 171/76
[2018-05-24 07:00] VITALS: BP 152/77
[2018-05-24 07:32] LABS: CALCIUM 9.1 mg/dL (8.5-10.1); CREATININE 6.1 mg/dL (0.6-1.0); GFR 8.3; MAGNESIUM 2.3 mg/dL (1.8-2.4); POTASSIUM 4.8 mmol/L (3.5-5.1)
[2018-05-24] MEDS ORDERED: ASPIRIN 325 MG TABLET PO SCH (08:00)
[2018-05-24] MEDS ORDERED: LOSARTAN POTASSIUM 50 MG TABLET. PO SCH (09:00)
[2018-05-24] MEDS ORDERED: FOLIC/VIT B COMP W-C (RENAL) TABLET. PO SCH (09:00)
[2018-05-24] MEDS ORDERED: CINACALCET HCL 30 MG TABLET PO SCH (09:00)
[2018-05-24] MEDS ORDERED: amLODIPine BESYLATE 10 MG TABLET PO SCH (09:00)
[2018-05-24] MEDS: SEVELAMER CARBONATE 800 MG TABLET. PO SCH ×3 (09:07→17:51)
[2018-05-24] MEDS: CARVEDILOL 12.5 MG TABLET. PO SCH ×2 (09:09→17:52)
[2018-05-24 09:29] LABS: BASO % 1 % (0-3); EOS # 0.4 x10^3/uL (0.0-0.7); EOS % 10 % (0-3); HEMATOCRIT 34.7 % (36.0-47.0); HEMOGLOBIN 11.2 g/dL (12.0-15.5); LYMPH # 0.5 x10^3/uL (1.0-4.8); LYMPH % 13 % (24-48); MEAN CORPUSCULAR HEMOGLOBIN 29 pg (25-35); MEAN CORPUSCULAR HGB CONC 32 g/dL (31-37); MEAN CORPUSCULAR VOLUME 89 fL (79-100); MONO # 0.6 x10^3/uL (0.0-1.1); MONO % 15 % (0-9); NEUT # 2.4 x10^3uL (1.8-7.7); NEUT % 62 % (31-73); PLATELET COUNT 159 x10^3/uL (140-400); RED BLOOD COUNT 3.88 x10^6/uL (3.50-5.40); RED CELL DISTRIBUTION WIDTH 15.1 % (11.5-14.5); WHITE BLOOD COUNT 3.8 x10^3/uL (4.0-11.0)
--- NOTE | 2018-05-24 10:19 | PDOC2 ---
CONSULT Date of Consult Date of Consult DATE: 05/24/18 TIME: 10:13 Reason for consultation: Splenic mass Consult: Hematology oncology, Dr. Lonny Hdz History of present illness: She is a 67-year-old female with CT showing enlarging splenic mass since 2014, she was admitted with nausea and vomiting and diarrhea assumed to be acute gastroenteritis, she does have some abdominal pain, chronic, mild, intermittent, comes and goes, better with Tylenol, and in the middle abdomen without radiation. Past medical history: End-stage renal disease on dialysis Diabetes mellitus 2 Hypertension Hyperlipidemia sleep apnea Coronary artery disease NSTEMI in the past History of cor pulmonale History of PE in 07 Glaucoma Right adrenal myolipoma Left eye blindness Enlarging splenic mass Past surgical history: Cardiac catheterization, cataract surgery, laser eye surgery, benign breast biopsy, ORIF right foot, colonoscopy Allergies: Latex, milk Medications: See attached list Social history: No alcohol or tobacco, lives with family, functional Family history: Diabetes and heart disease Review of systems: n/v/d/vision loss/ab pain, wt loss, o/ding 10 pt ROS neg Physical exam: Vitals reviewed, MAXIMUM TEMPERATURE 99.4 Gen.: Elderly female sitting on the toilet HEENT: mucous membranes moist, head normocephalic atraumatic, poor dental hygiene, left eye ptosis Neck: Supple, no lymphadenopathy Lymph nodes: No palpable lymphadenopathy neck or axilla Lungs: Breathing comfortably, no evidence of respiratory distress Abdomen: Soft, nontender, nondistended Extremities: No cyanosis or edema Skin: No signif rashes or skin breakdown Neuro: Alert and oriented 3 Psych: pleasant mood and affect Lab reviewed: White count 6.6, hemoglobin 11.0, platelets 197, MCV of 90 Influenza negative Lipase 228 Creatinine 6.1 ProBNP greater than 23,000 T bili 0.4 Rads reviewed: CT abdomen and pelvis with fluid filled bowel, large cystic mass in the spleen increased from 2015, uterine fibroid, renal osteodystrophy, right myolipoma adrenal Case discussed with: Pt and her nurse, records reviewed in [facility] and [employer], including labs and radiology, please see note for summary details. Assessment and Plan: She is a 67-year-old female admitted with gastroenteritis symptoms with enlarging splenic mass. Gastroenteritis: Defer to primary Enlarging splenic mass: We'll see if we can get a PET scan as an outpatient, will check LDH, if PET avid could consider bone marrow biopsy versus other Anemia: Consider further workup if it worsens or persists in follow-up Disposition: Per others, we will have her follow-up with us after discharge Thank you kindly for this consultation, and please do not hesitate to call with any further questions. Past Medical History Cardiovascular: CAD, HTN, [place], Syncope Pulmonary: No pertinent hx CENTRAL NERVOUS SYSTEM: Periperal neuropathy, TIA GI: No pertinent hx Heme/Onc: Anemia NOS Hepatobiliary: No pertinent hx Psych: No pertinent hx Musculoskeletal: Osteoarthritis Rheumatologic: No pertinent hx Infectious disease: No pertinent hx Renal/: Chronic renal failure Endocrine: Diabetes Past Surgical History Past Surgical History: Cholecystectomy, Other Family History Family History: Diabetes, Hypertension Social History ALCOHOL: none Drugs: None Lives: with Family Domestic Violence: Neg Current Problem List Problem List Problems Medical Problems: (1) Diarrhea Status: Acute (2) Hyperkalemia Status: Acute Current Medications Current Medications Current Medications Ondansetron HCl (Zofran) 4 mg 1X ONCE IV Last administered on 05/23/18at 10:57 ; Start 05/23/18 at 10:30; Stop 05/23/18 at 10:31; Status DC Famotidine (Pepcid Vial) 20 mg 1X ONCE IVP Last administered on 05/23/18at 11: 00; Start 05/23/18 at 10:30; Stop 05/23/18 at 10:31; Status DC Sodium Chloride 250 ml @ 250 mls/hr 1X ONCE IV Last administered on at 11:05; Start 05/23/18 at 10:30; Stop 05/23/18 at 11:29; Status DC Hydralazine HCl (Apresoline Inj) 10 mg 1X ONCE IVP Last administered on at 13:30; Start 05/23/18 at 12:00; Stop 05/23/18 at 12:01; Status DC Iohexol (Omnipaque 300 Mg/ml) 75 ml 1X ONCE IV ; Start 05/23/18 at 12:15; Stop 05/23/18 at 12:16; Status DC Sodium Chloride 1,000 ml @ 1,000 mls/hr Q1H PRN IV hypotension; Start 05/23/18 at 13:24; Stop 05/23/18 at 19:23; Status DC Labetalol HCl (Normodyne Iv Push) 10 mg PRN Q1HR PRN IVP SBP > 180; Start 05/23 at 13:30; Stop 05/24/18 at 13:29 Sodium Chloride 1,000 ml @ 400 mls/hr Q2H30M PRN IV PATENCY; Start 05/23/18 at 13:24; Stop 05/24/18 at 01:23; Status DC Info (PHARMACY MONITORING -- do not chart) 1 each PRN DAILY PRN MC SEE COMMENTS ; Start 05/23/18 at 13:30; Status UNV Info (PHARMACY MONITORING -- do not chart) 1 each PRN DAILY PRN MC SEE COMMENTS ; Start 05/23/18 at 13:30 Ondansetron HCl (Zofran) 4 mg PRN Q6HRS PRN IV NAUSEA/VOMITING; Start 05/23/18 at 14:15; Stop 05/24/18 at 14:14 Morphine Sulfate (Morphine Sulfate) 4 mg PRN Q2HR PRN IV PAIN; Start 05/23/18 at 14:15; Stop 05/24/18 at 14:14 Sodium Chloride 1,000 ml @ 40 mls/hr Q24H IV Last administered on 05/24/18at 01 :52; Start 05/23/18 at 14:15 Prochlorperazine Edisylate (Compazine) 10 mg PRN Q6HRS PRN IV NAUSEA/VOMITING; Start 05/23/18 at 14:15 Acetaminophen (Tylenol) 650 mg PRN Q6HRS PRN PO MILD PAIN Last administered on 05/23/18at 16:02; Start 05/23/18 at 15:45 Ondansetron HCl (Zofran) 4 mg PRN Q6HRS PRN IV NAUSEA/VOMITING; Start 05/23/18 at 17:00 Aspirin (Ladarius Aspirin) 81 mg DAILYWBKFT PO Last administered on 05/24/18at 09: 10; Start 05/24/18 at 08:00 Carvedilol (Coreg) 25 mg BIDWMEALS PO Last administered on 05/24/18at 09:09; Start 05/23/18 at 17:00 Losartan Potassium (Cozaar) 50 mg DAILY PO Last administered on 05/24/18at 09:10 ; Start 05/24/18 at 09:00 Vitamin B Complex/ Vitamin C (Christen-Johnny) 1 tab DAILY PO Last administered on at 09:09; Start 05/24/18 at 09:00 Sevelamer Carbonate (Renvela) 1,600 mg TIDWMEALS PO Last administered on at 09:07; Start 05/23/18 at 17:00 Cinacalcet (Sensipar) 60 mg DAILY PO Last administered on 05/24/18at 09:07; Start 05/24/18 at 09:00 Acetaminophen (Tylenol) 650 mg PRN Q6HRS PRN PO MILD PAIN / TEMP; Start at 17:00 Amlodipine Besylate (Norvasc) 10 mg DAILY PO Last administered on 05/24/18at 09: 08; Start 05/24/18 at 09:00 Active Scripts Active Pravastatin Sodium 40 Mg Tablet 1 Tab PO QHS Cozaar (Losartan Potassium) 50 Mg Tablet 50 Mg PO DAILY 30 Days Renvela (Sevelamer Carbonate) 800 Mg Tablet 1,600 Mg PO TIDWMEALS 30 Days Carvedilol 25 Mg Tablet 25 Mg PO BIDWMEALS 30 Days Amlodipine Besylate 10 Mg Tablet 10 Mg PO DAILY 30 Days Reported Albuterol Sulfate Neb Soln (Albuterol Sulfate) 0.63 Mg/3 Ml Vial.neb 1 Vial NEB QID Symbicort 160-4.5 Mcg Inhaler (Budesonide/Formoterol Fumarate) 10.2 Gm Hfa.aer.ad 2 Puff IH BID Nephro-Johnny Tablet (Folic Acid/Vitamin B Comp W-C) 0.8 Mg Tablet 1 Tab PO DAILY Alphagan P (Brimonidine Tartrate) 5 Ml Drops 1 Drop OD BID Sensipar (Cinacalcet Hcl) 30 Mg Tablet 60 Mg PO DAILY Tylenol (Acetaminophen) 325 Mg Tablet 325 Mg PO Q4-6HRS PRN Proair Hfa Inhaler (Albuterol Sulfate) 8.5 Gm Hfa.aer.ad 2 Puff IH PRN Q4-6HRS Cosopt Eye Drops (Dorzolamide Hcl/Timolol Maleat) 10 Ml Drops 1 Drop EACHEYE BID Aspirin 81 Mg Tab.chew 81 Mg PO DAILY Allergies Allergies: Coded Allergies: latex (Verified Allergy, Intermediate, 04/11/15) milk (Verified Allergy, Intermediate, 04/11/15) Vitals VITALS Vital Signs Date Time Temp Pulse Resp B/P (MAP) Pulse Ox O2 Delivery O2 Flow Rate FiO2 05/24/18 09:10 67 152/77 05/24/18 07:00 98.1 18 98 Room Air 98.1 05/24/18 03:00 2.0 Labs Labs Laboratory Tests Test 05/23/18 11:10 05/23/18 11:20 05/23/18 17:12 05/23/18 20:37 Influenza Type A Antigen Negative (NEGATIVE) Influenza Type B Antigen Negative (NEGATIVE) White Blood Count 6.6 x10^3/uL (4.0-11.0) Red Blood Count 3.82 x10^6/uL (3.50-5.40) Hemoglobin 11.0 g/dL (12.0-15.5) Hematocrit 34.3 % (36.0-47.0) Mean Corpuscular Volume 90 fL (79-100) Mean Corpuscular Hemoglobin 29 pg (25-35) Mean Corpuscular Hemoglobin Concent 32 g/dL (31-37) Red Cell Distribution Width 14.7 % (11.5-14.5) Platelet Count 197 x10^3/uL (140-400) Neutrophils (%) (Auto) 88 % (31-73) Lymphocytes (%) (Auto) 3 % (24-48) Monocytes (%) (Auto) 6 % (0-9) Eosinophils (%) (Auto) 4 % (0-3) Basophils (%) (Auto) 0 % (0-3) Neutrophils # (Auto) 5.8 x10^3uL (1.8-7.7) Lymphocytes # (Auto) 0.2 x10^3/uL (1.0-4.8) Monocytes # (Auto) 0.4 x10^3/uL (0.0-1.1) Eosinophils # (Auto) 0.3 x10^3/uL (0.0-0.7) Basophils # (Auto) 0.0 x10^3/uL (0.0-0.2) Segmented Neutrophils % 71 % (35-66) Band Neutrophils % 20 % (0-9) Lymphocytes % 3 % (24-48) Monocytes % 3 % (0-10) Eosinophils % 3 % (0-5) Platelet Estimate Adequate (ADEQUATE) Anisocytosis Slight Ovalocytes Few Sodium Level 142 mmol/L (136-145) Potassium Level 5.8 mmol/L (3.5-5.1) Chloride Level 103 mmol/L (98-107) Carbon Dioxide Level 30 mmol/L (21-32) Anion Gap 9 (6-14) Blood Urea Nitrogen 73 mg/dL (7-20) Creatinine 8.0 mg/dL (0.6-1.0) Estimated GFR (Cockcroft-Gault) 6.1 BUN/Creatinine Ratio 9 (6-20) Glucose Level 150 mg/dL (70-99) Calcium Level 9.1 mg/dL (8.5-10.1) Magnesium Level 2.3 mg/dL (1.8-2.4) Total Bilirubin 0.4 mg/dL (0.2-1.0) Aspartate Amino Transf (AST/SGOT) 13 U/L (15-37) Alanine Aminotransferase (ALT/SGPT) 13 U/L (14-59) Alkaline Phosphatase 91 U/L (46-116) Creatine Kinase 56 U/L (26-192) Creatine Kinase MB (Mass) 1.2 ng/mL (0.0-3.6) Creatine Kinase MB Relative Index % (0-4) Troponin I Quantitative < 0.017 ng/mL (0.000-0.055) AH-Mmg-J-Type Natriuretic Peptide 87164 pg/mL (0-124) Total Protein 7.3 g/dL (6.4-8.2) Albumin 3.1 g/dL (3.4-5.0) Albumin/Globulin Ratio 0.7 (1.0-1.7) Lipase 228 U/L (73-393) Glucose (Fingerstick) 101 mg/dL (70-99) 86 mg/dL (70-99) Test 05/24/18 05:30 05/24/18 09:00 Sodium Level 137 mmol/L (136-145) Potassium Level 4.8 mmol/L (3.5-5.1) Chloride Level 99 mmol/L (98-107) Carbon Dioxide Level 29 mmol/L (21-32) Anion Gap 9 (6-14) Blood Urea Nitrogen 46 mg/dL (7-20) Creatinine 6.1 mg/dL (0.6-1.0) Estimated GFR (Cockcroft-Gault) 8.3 Glucose Level 88 mg/dL (70-99) Calcium Level 9.1 mg/dL (8.5-10.1) Magnesium Level 2.3 mg/dL (1.8-2.4) Lactate Dehydrogenase 188 U/L (81-234) White Blood Count 3.8 x10^3/uL (4.0-11.0) Red Blood Count 3.88 x10^6/uL (3.50-5.40) Hemoglobin 11.2 g/dL (12.0-15.5) Hematocrit 34.7 % (36.0-47.0) Mean Corpuscular Volume 89 fL (79-100) Mean Corpuscular Hemoglobin 29 pg (25-35) Mean Corpuscular Hemoglobin Concent 32 g/dL (31-37) Red Cell Distribution Width 15.1 % (11.5-14.5) Platelet Count 159 x10^3/uL (140-400) Neutrophils (%) (Auto) 62 % (31-73) Lymphocytes (%) (Auto) 13 % (24-48) Monocytes (%) (Auto) 15 % (0-9) Eosinophils (%) (Auto) 10 % (0-3) Basophils (%) (Auto) 1 % (0-3) Neutrophils # (Auto) 2.4 x10^3uL (1.8-7.7) Lymphocytes # (Auto) 0.5 x10^3/uL (1.0-4.8) Monocytes # (Auto) 0.6 x10^3/uL (0.0-1.1) Eosinophils # (Auto) 0.4 x10^3/uL (0.0-0.7) Basophils # (Auto) 0.0 x10^3/uL (0.0-0.2) Laboratory Tests Test 05/23/18 11:10 05/23/18 11:20 05/23/18 17:12 05/23/18 20:37 Influenza Type A Antigen Negative (NEGATIVE) Influenza Type B Antigen Negative (NEGATIVE) White Blood Count 6.6 x10^3/uL (4.0-11.0) Red Blood Count 3.82 x10^6/uL (3.50-5.40) Hemoglobin 11.0 g/dL (12.0-15.5) Hematocrit 34.3 % (36.0-47.0) Mean Corpuscular Volume 90 fL (79-100) Mean Corpuscular Hemoglobin 29 pg (25-35) Mean Corpuscular Hemoglobin Concent 32 g/dL (31-37) Red Cell Distribution Width 14.7 % (11.5-14.5) Platelet Count 197 x10^3/uL (140-400) Neutrophils (%) (Auto) 88 % (31-73) Lymphocytes (%) (Auto) 3 % (24-48) Monocytes (%) (Auto) 6 % (0-9) Eosinophils (%) (Auto) 4 % (0-3) Basophils (%) (Auto) 0 % (0-3) Neutrophils # (Auto) 5.8 x10^3uL (1.8-7.7) Lymphocytes # (Auto) 0.2 x10^3/uL (1.0-4.8) Monocytes # (Auto) 0.4 x10^3/uL (0.0-1.1) Eosinophils # (Auto) 0.3 x10^3/uL (0.0-0.7) Basophils # (Auto) 0.0 x10^3/uL (0.0-0.2) Segmented Neutrophils % 71 % (35-66) Band Neutrophils % 20 % (0-9) Lymphocytes % 3 % (24-48) Monocytes % 3 % (0-10) Eosinophils % 3 % (0-5) Platelet Estimate Adequate (ADEQUATE) Anisocytosis Slight Ovalocytes Few Sodium Level 142 mmol/L (136-145) Potassium Level 5.8 mmol/L (3.5-5.1) Chloride Level 103 mmol/L (98-107) Carbon Dioxide Level 30 mmol/L (21-32) Anion Gap 9 (6-14) Blood Urea Nitrogen 73 mg/dL (7-20) Creatinine 8.0 mg/dL (0.6-1.0) Estimated GFR (Cockcroft-Gault) 6.1 BUN/Creatinine Ratio 9 (6-20) Glucose Level 150 mg/dL (70-99) Calcium Level 9.1 mg/dL (8.5-10.1) Magnesium Level 2.3 mg/dL (1.8-2.4) Total Bilirubin 0.4 mg/dL (0.2-1.0) Aspartate Amino Transf (AST/SGOT) 13 U/L (15-37) Alanine Aminotransferase (ALT/SGPT) 13 U/L (14-59) Alkaline Phosphatase 91 U/L (46-116) Creatine Kinase 56 U/L (26-192) Creatine Kinase MB (Mass) 1.2 ng/mL (0.0-3.6) Creatine Kinase MB Relative Index % (0-4) Troponin I Quantitative < 0.017 ng/mL (0.000-0.055) CD-Uit-C-Type Natriuretic Peptide 44799 pg/mL (0-124) Total Protein 7.3 g/dL (6.4-8.2) Albumin 3.1 g/dL (3.4-5.0) Albumin/Globulin Ratio 0.7 (1.0-1.7) Lipase 228 U/L (73-393) Glucose (Fingerstick) 101 mg/dL (70-99) 86 mg/dL (70-99) Test 05/24/18 05:30 05/24/18 09:00 Sodium Level 137 mmol/L (136-145) Potassium Level 4.8 mmol/L (3.5-5.1) Chloride Level 99 mmol/L (98-107) Carbon Dioxide Level 29 mmol/L (21-32) Anion Gap 9 (6-14) Blood Urea Nitrogen 46 mg/dL (7-20) Creatinine 6.1 mg/dL (0.6-1.0) Estimated GFR (Cockcroft-Gault) 8.3 Glucose Level 88 mg/dL (70-99) Calcium Level 9.1 mg/dL (8.5-10.1) Magnesium Level 2.3 mg/dL (1.8-2.4) Lactate Dehydrogenase 188 U/L (81-234) White Blood Count 3.8 x10^3/uL (4.0-11.0) Red Blood Count 3.88 x10^6/uL (3.50-5.40) Hemoglobin 11.2 g/dL (12.0-15.5) Hematocrit 34.7 % (36.0-47.0) Mean Corpuscular Volume 89 fL (79-100) Mean Corpuscular Hemoglobin 29 pg (25-35) Mean Corpuscular Hemoglobin Concent 32 g/dL (31-37) Red Cell Distribution Width 15.1 % (11.5-14.5) Platelet Count 159 x10^3/uL (140-400) Neutrophils (%) (Auto) 62 % (31-73) Lymphocytes (%) (Auto) 13 % (24-48) Monocytes (%) (Auto) 15 % (0-9) Eosinophils (%) (Auto) 10 % (0-3) Basophils (%) (Auto) 1 % (0-3) Neutrophils # (Auto) 2.4 x10^3uL (1.8-7.7) Lymphocytes # (Auto) 0.5 x10^3/uL (1.0-4.8) Monocytes # (Auto) 0.6 x10^3/uL (0.0-1.1) Eosinophils # (Auto) 0.4 x10^3/uL (0.0-0.7) Basophils # (Auto) 0.0 x10^3/uL (0.0-0.2) LONNY HDZ MD May 24, 2018 10:19
[2018-05-24 11:00] VITALS: BP 168/82
--- NOTE | 2018-05-24 12:02 | PDOC ---
PROGRESS NOTES Subjective Subjective feels better. nausea and vomiting resolved. had 1 loose stool this morning. lab reviewed. bp high. Objective Objective Vital Signs Date Time Temp Pulse Resp B/P (MAP) Pulse Ox O2 Delivery O2 Flow Rate FiO2 05/24/18 11:00 98.3 70 17 168/82 (110) 98 Room Air 98.3 05/24/18 03:00 2.0 Intake and Output 05/24/18 06:59 Intake Total 350 ml Balance 350 ml Intake Oral 100 ml IV Total 250 ml Physical Exam Abdomen: Normal bowel sounds, Soft, No tenderness Heart: Regular rate, Normal S1, Normal S2 Extremities: No edema General: Alert HEENT: Atraumatic Lungs: Clear to auscultation Neuro: Normal speech Psych/Mental Status: Mental status NL Skin: No rashes Assessment Assessment Problems1. Nausea, vomiting and diarrhea, most likely secondary to an acute gastroenteritis. improved 2. End-stage renal disease, on hemodialysis. 3. Hypertension. Her blood pressure is elevated. 4. Hyperlipidemia. 5. Diabetes mellitus type 2. 6. Obstructive sleep apnea. 7. Cystic splenic mass, which is slowly increasing in size since 2015. oncology recommends out patient PET scan Medical Problems: (1) Diarrhea Status: Acute (2) Hyperkalemia Status: Acute Plan Plan of Care d/c iv fluids advance to full liquids zofran prn lab tomorrow increase losartan hemodialysis tomorrow out patient PET scan Comment Review of Relevant I have reviewed the following items jorge (where applicable) has been applied. Labs Laboratory Tests Test 05/23/18 11:10 05/23/18 11:20 05/23/18 17:12 05/23/18 20:37 Influenza Type A Antigen Negative (NEGATIVE) Influenza Type B Antigen Negative (NEGATIVE) White Blood Count 6.6 x10^3/uL (4.0-11.0) Red Blood Count 3.82 x10^6/uL (3.50-5.40) Hemoglobin 11.0 g/dL (12.0-15.5) Hematocrit 34.3 % (36.0-47.0) Mean Corpuscular Volume 90 fL (79-100) Mean Corpuscular Hemoglobin 29 pg (25-35) Mean Corpuscular Hemoglobin Concent 32 g/dL (31-37) Red Cell Distribution Width 14.7 % (11.5-14.5) Platelet Count 197 x10^3/uL (140-400) Neutrophils (%) (Auto) 88 % (31-73) Lymphocytes (%) (Auto) 3 % (24-48) Monocytes (%) (Auto) 6 % (0-9) Eosinophils (%) (Auto) 4 % (0-3) Basophils (%) (Auto) 0 % (0-3) Neutrophils # (Auto) 5.8 x10^3uL (1.8-7.7) Lymphocytes # (Auto) 0.2 x10^3/uL (1.0-4.8) Monocytes # (Auto) 0.4 x10^3/uL (0.0-1.1) Eosinophils # (Auto) 0.3 x10^3/uL (0.0-0.7) Basophils # (Auto) 0.0 x10^3/uL (0.0-0.2) Segmented Neutrophils % 71 % (35-66) Band Neutrophils % 20 % (0-9) Lymphocytes % 3 % (24-48) Monocytes % 3 % (0-10) Eosinophils % 3 % (0-5) Platelet Estimate Adequate (ADEQUATE) Anisocytosis Slight Ovalocytes Few Sodium Level 142 mmol/L (136-145) Potassium Level 5.8 mmol/L (3.5-5.1) Chloride Level 103 mmol/L (98-107) Carbon Dioxide Level 30 mmol/L (21-32) Anion Gap 9 (6-14) Blood Urea Nitrogen 73 mg/dL (7-20) Creatinine 8.0 mg/dL (0.6-1.0) Estimated GFR (Cockcroft-Gault) 6.1 BUN/Creatinine Ratio 9 (6-20) Glucose Level 150 mg/dL (70-99) Calcium Level 9.1 mg/dL (8.5-10.1) Magnesium Level 2.3 mg/dL (1.8-2.4) Total Bilirubin 0.4 mg/dL (0.2-1.0) Aspartate Amino Transf (AST/SGOT) 13 U/L (15-37) Alanine Aminotransferase (ALT/SGPT) 13 U/L (14-59) Alkaline Phosphatase 91 U/L (46-116) Creatine Kinase 56 U/L (26-192) Creatine Kinase MB (Mass) 1.2 ng/mL (0.0-3.6) Creatine Kinase MB Relative Index % (0-4) Troponin I Quantitative < 0.017 ng/mL (0.000-0.055) EU-Rzu-L-Type Natriuretic Peptide 59207 pg/mL (0-124) Total Protein 7.3 g/dL (6.4-8.2) Albumin 3.1 g/dL (3.4-5.0) Albumin/Globulin Ratio 0.7 (1.0-1.7) Lipase 228 U/L (73-393) Glucose (Fingerstick) 101 mg/dL (70-99) 86 mg/dL (70-99) Test 05/24/18 05:30 05/24/18 09:00 Sodium Level 137 mmol/L (136-145) Potassium Level 4.8 mmol/L (3.5-5.1) Chloride Level 99 mmol/L (98-107) Carbon Dioxide Level 29 mmol/L (21-32) Anion Gap 9 (6-14) Blood Urea Nitrogen 46 mg/dL (7-20) Creatinine 6.1 mg/dL (0.6-1.0) Estimated GFR (Cockcroft-Gault) 8.3 Glucose Level 88 mg/dL (70-99) Calcium Level 9.1 mg/dL (8.5-10.1) Magnesium Level 2.3 mg/dL (1.8-2.4) Lactate Dehydrogenase 188 U/L (81-234) White Blood Count 3.8 x10^3/uL (4.0-11.0) Red Blood Count 3.88 x10^6/uL (3.50-5.40) Hemoglobin 11.2 g/dL (12.0-15.5) Hematocrit 34.7 % (36.0-47.0) Mean Corpuscular Volume 89 fL (79-100) Mean Corpuscular Hemoglobin 29 pg (25-35) Mean Corpuscular Hemoglobin Concent 32 g/dL (31-37) Red Cell Distribution Width 15.1 % (11.5-14.5) Platelet Count 159 x10^3/uL (140-400) Neutrophils (%) (Auto) 62 % (31-73) Lymphocytes (%) (Auto) 13 % (24-48) Monocytes (%) (Auto) 15 % (0-9) Eosinophils (%) (Auto) 10 % (0-3) Basophils (%) (Auto) 1 % (0-3) Neutrophils # (Auto) 2.4 x10^3uL (1.8-7.7) Lymphocytes # (Auto) 0.5 x10^3/uL (1.0-4.8) Monocytes # (Auto) 0.6 x10^3/uL (0.0-1.1) Eosinophils # (Auto) 0.4 x10^3/uL (0.0-0.7) Basophils # (Auto) 0.0 x10^3/uL (0.0-0.2) Laboratory Tests Test 05/23/18 17:12 05/23/18 20:37 05/24/18 05:30 05/24/18 09:00 Glucose (Fingerstick) 101 mg/dL (70-99) 86 mg/dL (70-99) Sodium Level 137 mmol/L (136-145) Potassium Level 4.8 mmol/L (3.5-5.1) Chloride Level 99 mmol/L (98-107) Carbon Dioxide Level 29 mmol/L (21-32) Anion Gap 9 (6-14) Blood Urea Nitrogen 46 mg/dL (7-20) Creatinine 6.1 mg/dL (0.6-1.0) Estimated GFR (Cockcroft-Gault) 8.3 Glucose Level 88 mg/dL (70-99) Calcium Level 9.1 mg/dL (8.5-10.1) Magnesium Level 2.3 mg/dL (1.8-2.4) Lactate Dehydrogenase 188 U/L (81-234) White Blood Count 3.8 x10^3/uL (4.0-11.0) Red Blood Count 3.88 x10^6/uL (3.50-5.40) Hemoglobin 11.2 g/dL (12.0-15.5) Hematocrit 34.7 % (36.0-47.0) Mean Corpuscular Volume 89 fL (79-100) Mean Corpuscular Hemoglobin 29 pg (25-35) Mean Corpuscular Hemoglobin Concent 32 g/dL (31-37) Red Cell Distribution Width 15.1 % (11.5-14.5) Platelet Count 159 x10^3/uL (140-400) Neutrophils (%) (Auto) 62 % (31-73) Lymphocytes (%) (Auto) 13 % (24-48) Monocytes (%) (Auto) 15 % (0-9) Eosinophils (%) (Auto) 10 % (0-3) Basophils (%) (Auto) 1 % (0-3) Neutrophils # (Auto) 2.4 x10^3uL (1.8-7.7) Lymphocytes # (Auto) 0.5 x10^3/uL (1.0-4.8) Monocytes # (Auto) 0.6 x10^3/uL (0.0-1.1) Eosinophils # (Auto) 0.4 x10^3/uL (0.0-0.7) Basophils # (Auto) 0.0 x10^3/uL (0.0-0.2) Medications Current Medications Ondansetron HCl (Zofran) 4 mg 1X ONCE IV Last administered on 05/23/18at 10:57 ; Start 05/23/18 at 10:30; Stop 05/23/18 at 10:31; Status DC Famotidine (Pepcid Vial) 20 mg 1X ONCE IVP Last administered on 05/23/18at 11: 00; Start 05/23/18 at 10:30; Stop 05/23/18 at 10:31; Status DC Sodium Chloride 250 ml @ 250 mls/hr 1X ONCE IV Last administered on at 11:05; Start 05/23/18 at 10:30; Stop 05/23/18 at 11:29; Status DC Hydralazine HCl (Apresoline Inj) 10 mg 1X ONCE IVP Last administered on at 13:30; Start 05/23/18 at 12:00; Stop 05/23/18 at 12:01; Status DC Iohexol (Omnipaque 300 Mg/ml) 75 ml 1X ONCE IV ; Start 05/23/18 at 12:15; Stop 05/23/18 at 12:16; Status DC Sodium Chloride 1,000 ml @ 1,000 mls/hr Q1H PRN IV hypotension; Start 05/23/18 at 13:24; Stop 05/23/18 at 19:23; Status DC Labetalol HCl (Normodyne Iv Push) 10 mg PRN Q1HR PRN IVP SBP > 180; Start 05/23 at 13:30; Stop 05/24/18 at 13:29 Sodium Chloride 1,000 ml @ 400 mls/hr Q2H30M PRN IV PATENCY; Start 05/23/18 at 13:24; Stop 05/24/18 at 01:23; Status DC Info (PHARMACY MONITORING -- do not chart) 1 each PRN DAILY PRN MC SEE COMMENTS ; Start 05/23/18 at 13:30; Status UNV Info (PHARMACY MONITORING -- do not chart) 1 each PRN DAILY PRN MC SEE COMMENTS ; Start 05/23/18 at 13:30 Ondansetron HCl (Zofran) 4 mg PRN Q6HRS PRN IV NAUSEA/VOMITING; Start 05/23/18 at 14:15; Stop 05/24/18 at 14:14 Morphine Sulfate (Morphine Sulfate) 4 mg PRN Q2HR PRN IV PAIN; Start 05/23/18 at 14:15; Stop 05/24/18 at 14:14 Sodium Chloride 1,000 ml @ 40 mls/hr Q24H IV Last administered on 05/24/18at 01 :52; Start 05/23/18 at 14:15 Prochlorperazine Edisylate (Compazine) 10 mg PRN Q6HRS PRN IV NAUSEA/VOMITING; Start 05/23/18 at 14:15 Acetaminophen (Tylenol) 650 mg PRN Q6HRS PRN PO MILD PAIN Last administered on 05/23/18at 16:02; Start 05/23/18 at 15:45 Ondansetron HCl (Zofran) 4 mg PRN Q6HRS PRN IV NAUSEA/VOMITING; Start 05/23/18 at 17:00 Aspirin (Ladarius Aspirin) 81 mg DAILYWBKFT PO Last administered on 05/24/18at 09: 10; Start 05/24/18 at 08:00 Carvedilol (Coreg) 25 mg BIDWMEALS PO Last administered on 05/24/18at 09:09; Start 05/23/18 at 17:00 Losartan Potassium (Cozaar) 50 mg DAILY PO Last administered on 05/24/18at 09:10 ; Start 05/24/18 at 09:00 Vitamin B Complex/ Vitamin C (Christen-Johnny) 1 tab DAILY PO Last administered on 09:09; Start 05/24/18 at 09:00 Sevelamer Carbonate (Renvela) 1,600 mg TIDWMEALS PO Last administered on at 09:07; Start 05/23/18 at 17:00 Cinacalcet (Sensipar) 60 mg DAILY PO Last administered on 05/24/18 09:07; Start 05/24/18 at 09:00 Acetaminophen (Tylenol) 650 mg PRN Q6HRS PRN PO MILD PAIN / TEMP; Start at 17:00 Amlodipine Besylate (Norvasc) 10 mg DAILY PO Last administered on 05/24/18at 09: 08; Start 05/24/18 at 09:00 Active Scripts Active Pravastatin Sodium 40 Mg Tablet 1 Tab PO QHS Cozaar (Losartan Potassium) 50 Mg Tablet 50 Mg PO DAILY 30 Days Renvela (Sevelamer Carbonate) 800 Mg Tablet 1,600 Mg PO TIDWMEALS 30 Days Carvedilol 25 Mg Tablet 25 Mg PO BIDWMEALS 30 Days Amlodipine Besylate 10 Mg Tablet 10 Mg PO DAILY 30 Days Reported Albuterol Sulfate Neb Soln (Albuterol Sulfate) 0.63 Mg/3 Ml Vial.neb 1 Vial NEB QID Symbicort 160-4.5 Mcg Inhaler (Budesonide/Formoterol Fumarate) 10.2 Gm Hfa.aer.ad 2 Puff IH BID Nephro-Johnny Tablet (Folic Acid/Vitamin B Comp W-C) 0.8 Mg Tablet 1 Tab PO DAILY Alphagan P (Brimonidine Tartrate) 5 Ml Drops 1 Drop OD BID Sensipar (Cinacalcet Hcl) 30 Mg Tablet 60 Mg PO DAILY Tylenol (Acetaminophen) 325 Mg Tablet 325 Mg PO Q4-6HRS PRN Proair Hfa Inhaler (Albuterol Sulfate) 8.5 Gm Hfa.aer.ad 2 Puff IH PRN Q4-6HRS Cosopt Eye Drops (Dorzolamide Hcl/Timolol Maleat) 10 Ml Drops 1 Drop EACHEYE BID Aspirin 81 Mg Tab.chew 81 Mg PO DAILY Vitals/I & O Vital Sign - Last 24 Hours 05/23/18 05/23/18 05/23/1805/23/19 12:56 13:25 13:30 19:50 Pulse 76 78 79 74 Resp 18 B/P (MAP) 185/84 (117) 179/70 (106) 185/84 163/80 (107) Pulse Ox 99 100 98 O2 Delivery Nasal Cannula Nasal Cannula Nasal Cannula O2 Flow Rate 2.0 2.0 2.0 05/23/18 05/24/18 05/24/18 05/24/18 23:00 03:00 07:00 09:08 Temp 98.6 99.4 98.1 98.6 99.4 98.1 Pulse 84 81 67 67 Resp 18 B/P (MAP) 142/70 (94) 171/76 (107) 152/77 (102) 152/77 Pulse Ox 99 97 98 O2 Delivery Nasal Cannula Nasal Cannula Room Air O2 Flow Rate 2.0 2.0 05/24/18 05/24/18 05/24/18 09:09 09:10 11:00 Temp 98.3 98.3 Pulse 67 67 70 17 B/P (MAP) 152/77 152/77 168/82 (110) Pulse Ox 98 O2 Delivery Room Air Intake and Output 05/23/18 05/23/18 05/24/18 14:59 22:59 06:59 Intake Total 250 ml 100 ml Balance 250 ml 100 ml DIVINA BRIGGS MD May 24, 2018 12:02
--- NOTE | 2018-05-24 12:29 | PDOC2 ---
CONSULT Date of Consult Date of Consult DATE: 05/24/18 TIME: 12:26 Reason for Consult Reason for Consult: ESRD Referring Physician Referring Physician: BRIGITTE Identification/Chief Complaint Chief Complaint N/V/D Source Source: Chart review, Patient History of Present Illness Reason for Visit: THIS IS A 67 YR OLD WITH ESRD ON HD MWF. ADMITTED WITH N/V/D FOR COUPLE DAYS. NOT ABLE TO KEEP ANYTHING DOWN. LABS ARE C/W ESRD. ESRD DUE TO HTN. SHE HAS OP HD ON MWF VIA AN AV ACCESS Past Medical History Cardiovascular: CAD, HTN, NE, Syncope Pulmonary: No pertinent hx CENTRAL NERVOUS SYSTEM: Periperal neuropathy, TIA GI: No pertinent hx Heme/Onc: Anemia NOS Hepatobiliary: No pertinent hx Psych: No pertinent hx Musculoskeletal: Osteoarthritis Rheumatologic: No pertinent hx Infectious disease: No pertinent hx Renal/: Chronic renal failure Endocrine: Diabetes, Hyperparathyroidism Past Surgical History Past Surgical History: Cholecystectomy, Other Family History Family History: Diabetes, Hypertension Social History ALCOHOL: none Drugs: None Lives: with Family Domestic Violence: Neg Current Problem List Problem List Problems Medical Problems: (1) Diarrhea Status: Acute (2) Hyperkalemia Status: Acute Current Medications Current Medications Current Medications Ondansetron HCl (Zofran) 4 mg 1X ONCE IV Last administered on 05/23/18at 10:57 ; Start 05/23/18 at 10:30; Stop 05/23/18 at 10:31; Status DC Famotidine (Pepcid Vial) 20 mg 1X ONCE IVP Last administered on 05/23/18at 11: 00; Start 05/23/18 at 10:30; Stop 05/23/18 at 10:31; Status DC Sodium Chloride 250 ml @ 250 mls/hr 1X ONCE IV Last administered on at 11:05; Start 05/23/18 at 10:30; Stop 05/23/18 at 11:29; Status DC Hydralazine HCl (Apresoline Inj) 10 mg 1X ONCE IVP Last administered on at 13:30; Start 05/23/18 at 12:00; Stop 05/23/18 at 12:01; Status DC Iohexol (Omnipaque 300 Mg/ml) 75 ml 1X ONCE IV ; Start 05/23/18 at 12:15; Stop 05/23/18 at 12:16; Status DC Sodium Chloride 1,000 ml @ 1,000 mls/hr Q1H PRN IV hypotension; Start 05/23/18 at 13:24; Stop 05/23/18 at 19:23; Status DC Labetalol HCl (Normodyne Iv Push) 10 mg PRN Q1HR PRN IVP SBP > 180; Start 05/23 at 13:30; Stop 05/24/18 at 13:29 Sodium Chloride 1,000 ml @ 400 mls/hr Q2H30M PRN IV PATENCY; Start 05/23/18 at 13:24; Stop 05/24/18 at 01:23; Status DC Info (PHARMACY MONITORING -- do not chart) 1 each PRN DAILY PRN MC SEE COMMENTS ; Start 05/23/18 at 13:30; Status UNV Info (PHARMACY MONITORING -- do not chart) 1 each PRN DAILY PRN MC SEE COMMENTS ; Start 05/23/18 at 13:30 Ondansetron HCl (Zofran) 4 mg PRN Q6HRS PRN IV NAUSEA/VOMITING; Start 05/23/18 at 14:15; Stop 05/24/18 at 14:14 Morphine Sulfate (Morphine Sulfate) 4 mg PRN Q2HR PRN IV PAIN; Start 05/23/18 at 14:15; Stop 05/24/18 at 14:14 Sodium Chloride 1,000 ml @ 40 mls/hr Q24H IV Last administered on 05/24/18at 01 :52; Start 05/23/18 at 14:15; Stop 05/24/18 at 11:59; Status DC Prochlorperazine Edisylate (Compazine) 10 mg PRN Q6HRS PRN IV NAUSEA/VOMITING; Start 05/23/18 at 14:15 Acetaminophen (Tylenol) 650 mg PRN Q6HRS PRN PO MILD PAIN Last administered on 05/23/18at 16:02; Start 05/23/18 at 15:45 Ondansetron HCl (Zofran) 4 mg PRN Q6HRS PRN IV NAUSEA/VOMITING; Start 05/23/18 at 17:00 Aspirin (Ladarius Aspirin) 81 mg DAILYWBKFT PO Last administered on 05/24/18at 09: 10; Start 05/24/18 at 08:00 Carvedilol (Coreg) 25 mg BIDWMEALS PO Last administered on 05/24/18 09:09; Start 05/23/18 at 17:00 Losartan Potassium (Cozaar) 50 mg DAILY PO Last administered on 05/24/18at 09:10 ; Start 05/24/18 at 09:00; Stop 05/24/18 at 11:59; Status DC Vitamin B Complex/ Vitamin C (Christen-Johnny) 1 tab DAILY PO Last administered on at 09:09; Start 05/24/18 at 09:00 Sevelamer Carbonate (Renvela) 1,600 mg TIDWMEALS PO Last administered on 09:07; Start 05/23/18 at 17:00 Cinacalcet (Sensipar) 60 mg DAILY PO Last administered on 05/24/18 09:07; Start 05/24/18 at 09:00 Acetaminophen (Tylenol) 650 mg PRN Q6HRS PRN PO MILD PAIN / TEMP; Start at 17:00 Amlodipine Besylate (Norvasc) 10 mg DAILY PO Last administered on 05/24/18at 09: 08; Start 05/24/18 at 09:00 Losartan Potassium (Cozaar) 100 mg DAILY PO ; Start 05/25/18 at 09:00 Active Scripts Active Pravastatin Sodium 40 Mg Tablet 1 Tab PO QHS Cozaar (Losartan Potassium) 50 Mg Tablet 50 Mg PO DAILY 30 Days Renvela (Sevelamer Carbonate) 800 Mg Tablet 1,600 Mg PO TIDWMEALS 30 Days Carvedilol 25 Mg Tablet 25 Mg PO BIDWMEALS 30 Days Amlodipine Besylate 10 Mg Tablet 10 Mg PO DAILY 30 Days Reported Albuterol Sulfate Neb Soln (Albuterol Sulfate) 0.63 Mg/3 Ml Vial.neb 1 Vial NEB QID Symbicort 160-4.5 Mcg Inhaler (Budesonide/Formoterol Fumarate) 10.2 Gm Hfa.aer.ad 2 Puff IH BID Nephro-Johnny Tablet (Folic Acid/Vitamin B Comp W-C) 0.8 Mg Tablet 1 Tab PO DAILY Alphagan P (Brimonidine Tartrate) 5 Ml Drops 1 Drop OD BID Sensipar (Cinacalcet Hcl) 30 Mg Tablet 60 Mg PO DAILY Tylenol (Acetaminophen) 325 Mg Tablet 325 Mg PO Q4-6HRS PRN Proair Hfa Inhaler (Albuterol Sulfate) 8.5 Gm Hfa.aer.ad 2 Puff IH PRN Q4-6HRS Cosopt Eye Drops (Dorzolamide Hcl/Timolol Maleat) 10 Ml Drops 1 Drop EACHEYE BID Aspirin 81 Mg Tab.chew 81 Mg PO DAILY Allergies Allergies: Coded Allergies: latex (Verified Allergy, Intermediate, 04/11/15) milk (Verified Allergy, Intermediate, 04/11/15) ROS General: YES: Fatigue, Malaise, Appetite PSYCHOLOGICAL ROS: YES: Anxiety, Depression Eyes: Yes Decreased vision HEENT: YES: Heacaches Cardiovascular: yes Lt Headedness Gastrointestinal: Yes Nausea, Yes Vomiting, Yes Abdominal Pain, Yes Diarrhea Genitourinary: YES Other (ANURIA) Musculoskeletal: Yes Muscular Weakness Neurological: Yes Weakness Skin: Yes Dry Skin Physical Exam General: Alert, Oriented X3, Cooperative, No acute distress HEENT: Atraumatic, PERRLA Lungs: Clear to auscultation Heart: Regular rate, Normal S1, Normal S2 Abdomen: Normal bowel sounds, Soft, No tenderness Extremities: No clubbing Skin: No breakdown Neuro: Normal speech, Sensation intact, Cranial nerves 3-12 NL Psych/Mental Status: Mental status NL, Mood NL MUSCULOSKELETAL: No joint tenderness, No deformity, No swelling, Other (AV ACCESS PATENT) Vitals VITALS Vital Signs Date Time Temp Pulse Resp B/P (MAP) Pulse Ox O2 Delivery O2 Flow Rate FiO2 05/24/18 11:00 98.3 70 17 168/82 (110) 98 Room Air 98.3 05/24/18 08:00 2.0 Labs Labs Laboratory Tests Test 05/23/18 11:10 05/23/18 11:20 05/23/18 17:12 05/23/18 20:37 Influenza Type A Antigen Negative (NEGATIVE) Influenza Type B Antigen Negative (NEGATIVE) White Blood Count 6.6 x10^3/uL (4.0-11.0) Red Blood Count 3.82 x10^6/uL (3.50-5.40) Hemoglobin 11.0 g/dL (12.0-15.5) Hematocrit 34.3 % (36.0-47.0) Mean Corpuscular Volume 90 fL (79-100) Mean Corpuscular Hemoglobin 29 pg (25-35) Mean Corpuscular Hemoglobin Concent 32 g/dL (31-37) Red Cell Distribution Width 14.7 % (11.5-14.5) Platelet Count 197 x10^3/uL (140-400) Neutrophils (%) (Auto) 88 % (31-73) Lymphocytes (%) (Auto) 3 % (24-48) Monocytes (%) (Auto) 6 % (0-9) Eosinophils (%) (Auto) 4 % (0-3) Basophils (%) (Auto) 0 % (0-3) Neutrophils # (Auto) 5.8 x10^3uL (1.8-7.7) Lymphocytes # (Auto) 0.2 x10^3/uL (1.0-4.8) Monocytes # (Auto) 0.4 x10^3/uL (0.0-1.1) Eosinophils # (Auto) 0.3 x10^3/uL (0.0-0.7) Basophils # (Auto) 0.0 x10^3/uL (0.0-0.2) Segmented Neutrophils % 71 % (35-66) Band Neutrophils % 20 % (0-9) Lymphocytes % 3 % (24-48) Monocytes % 3 % (0-10) Eosinophils % 3 % (0-5) Platelet Estimate Adequate (ADEQUATE) Anisocytosis Slight Ovalocytes Few Sodium Level 142 mmol/L (136-145) Potassium Level 5.8 mmol/L (3.5-5.1) Chloride Level 103 mmol/L (98-107) Carbon Dioxide Level 30 mmol/L (21-32) Anion Gap 9 (6-14) Blood Urea Nitrogen 73 mg/dL (7-20) Creatinine 8.0 mg/dL (0.6-1.0) Estimated GFR (Cockcroft-Gault) 6.1 BUN/Creatinine Ratio 9 (6-20) Glucose Level 150 mg/dL (70-99) Calcium Level 9.1 mg/dL (8.5-10.1) Magnesium Level 2.3 mg/dL (1.8-2.4) Total Bilirubin 0.4 mg/dL (0.2-1.0) Aspartate Amino Transf (AST/SGOT) 13 U/L (15-37) Alanine Aminotransferase (ALT/SGPT) 13 U/L (14-59) Alkaline Phosphatase 91 U/L (46-116) Creatine Kinase 56 U/L (26-192) Creatine Kinase MB (Mass) 1.2 ng/mL (0.0-3.6) Creatine Kinase MB Relative Index % (0-4) Troponin I Quantitative < 0.017 ng/mL (0.000-0.055) SV-[id number]-Type Natriuretic Peptide 68177 pg/mL (0-124) Total Protein 7.3 g/dL (6.4-8.2) Albumin 3.1 g/dL (3.4-5.0) Albumin/Globulin Ratio 0.7 (1.0-1.7) Lipase 228 U/L (73-393) Glucose (Fingerstick) 101 mg/dL (70-99) 86 mg/dL (70-99) Test 05/24/18 05:30 05/24/18 09:00 Sodium Level 137 mmol/L (136-145) Potassium Level 4.8 mmol/L (3.5-5.1) Chloride Level 99 mmol/L (98-107) Carbon Dioxide Level 29 mmol/L (21-32) Anion Gap 9 (6-14) Blood Urea Nitrogen 46 mg/dL (7-20) Creatinine 6.1 mg/dL (0.6-1.0) Estimated GFR (Cockcroft-Gault) 8.3 Glucose Level 88 mg/dL (70-99) Calcium Level 9.1 mg/dL (8.5-10.1) Magnesium Level 2.3 mg/dL (1.8-2.4) Lactate Dehydrogenase 188 U/L (81-234) White Blood Count 3.8 x10^3/uL (4.0-11.0) Red Blood Count 3.88 x10^6/uL (3.50-5.40) Hemoglobin 11.2 g/dL (12.0-15.5) Hematocrit 34.7 % (36.0-47.0) Mean Corpuscular Volume 89 fL (79-100) Mean Corpuscular Hemoglobin 29 pg (25-35) Mean Corpuscular Hemoglobin Concent 32 g/dL (31-37) Red Cell Distribution Width 15.1 % (11.5-14.5) Platelet Count 159 x10^3/uL (140-400) Neutrophils (%) (Auto) 62 % (31-73) Lymphocytes (%) (Auto) 13 % (24-48) Monocytes (%) (Auto) 15 % (0-9) Eosinophils (%) (Auto) 10 % (0-3) Basophils (%) (Auto) 1 % (0-3) Neutrophils # (Auto) 2.4 x10^3uL (1.8-7.7) Lymphocytes # (Auto) 0.5 x10^3/uL (1.0-4.8) Monocytes # (Auto) 0.6 x10^3/uL (0.0-1.1) Eosinophils # (Auto) 0.4 x10^3/uL (0.0-0.7) Basophils # (Auto) 0.0 x10^3/uL (0.0-0.2) Laboratory Tests Test 05/23/18 17:12 05/23/18 20:37 05/24/18 05:30 05/24/18 09:00 Glucose (Fingerstick) 101 mg/dL (70-99) 86 mg/dL (70-99) Sodium Level 137 mmol/L (136-145) Potassium Level 4.8 mmol/L (3.5-5.1) Chloride Level 99 mmol/L (98-107) Carbon Dioxide Level 29 mmol/L (21-32) Anion Gap 9 (6-14) Blood Urea Nitrogen 46 mg/dL (7-20) Creatinine 6.1 mg/dL (0.6-1.0) Estimated GFR (Cockcroft-Gault) 8.3 Glucose Level 88 mg/dL (70-99) Calcium Level 9.1 mg/dL (8.5-10.1) Magnesium Level 2.3 mg/dL (1.8-2.4) Lactate Dehydrogenase 188 U/L (81-234) White Blood Count 3.8 x10^3/uL (4.0-11.0) Red Blood Count 3.88 x10^6/uL (3.50-5.40) Hemoglobin 11.2 g/dL (12.0-15.5) Hematocrit 34.7 % (36.0-47.0) Mean Corpuscular Volume 89 fL (79-100) Mean Corpuscular Hemoglobin 29 pg (25-35) Mean Corpuscular Hemoglobin Concent 32 g/dL (31-37) Red Cell Distribution Width 15.1 % (11.5-14.5) Platelet Count 159 x10^3/uL (140-400) Neutrophils (%) (Auto) 62 % (31-73) Lymphocytes (%) (Auto) 13 % (24-48) Monocytes (%) (Auto) 15 % (0-9) Eosinophils (%) (Auto) 10 % (0-3) Basophils (%) (Auto) 1 % (0-3) Neutrophils # (Auto) 2.4 x10^3uL (1.8-7.7) Lymphocytes # (Auto) 0.5 x10^3/uL (1.0-4.8) Monocytes # (Auto) 0.6 x10^3/uL (0.0-1.1) Eosinophils # (Auto) 0.4 x10^3/uL (0.0-0.7) Basophils # (Auto) 0.0 x10^3/uL (0.0-0.2) Assessment/Plan Assessment/Plan IMP GASTROENTERITIS DEHYDRATION ANEMIA HTN ESRD PLAN BOWEL REST HD MWF SUSANA WHEN NEEDED WILL FOLLOW CODY NORMAN MD May 24, 2018 12:29
[2018-05-24 15:00] VITALS: BP 142/75
--- NOTE | 2018-05-24 15:25 | NUR ---
SW following for discharge planning. Discussed with RN, pt is from home. Pt has dialysis, MWF. SW met with pt to discuss referral for [employer] Direct[employer]. Pt would like to speak to her son first. SW will revisit pt tomorrow morning (05/25/18).
[2018-05-24 19:00] VITALS: BP 152/76
[2018-05-24 23:00] VITALS: BP 141/66
[2018-05-25 03:00] VITALS: BP 144/81
[2018-05-25 04:16] LABS: BASO % 1 % (0-3); EOS # 0.3 x10^3/uL (0.0-0.7); EOS % 9 % (0-3); HEMATOCRIT 31.5 % (36.0-47.0); HEMOGLOBIN 10.1 g/dL (12.0-15.5); LYMPH # 0.9 x10^3/uL (1.0-4.8); LYMPH % 24 % (24-48); MEAN CORPUSCULAR HEMOGLOBIN 29 pg (25-35); MEAN CORPUSCULAR HGB CONC 32 g/dL (31-37); MEAN CORPUSCULAR VOLUME 90 fL (79-100); MONO # 0.6 x10^3/uL (0.0-1.1); MONO % 17 % (0-9); NEUT # 1.9 x10^3uL (1.8-7.7); NEUT % 50 % (31-73); PLATELET COUNT 142 x10^3/uL (140-400); RED BLOOD COUNT 3.51 x10^6/uL (3.50-5.40); WHITE BLOOD COUNT 3.8 x10^3/uL (4.0-11.0)
[2018-05-25 04:38] LABS: CALCIUM 8.4 mg/dL (8.5-10.1); CREATININE 7.8 mg/dL (0.6-1.0); GFR 6.3
[2018-05-25] MEDS ORDERED: IV NORMAL SALINE 1000ML BAG 1,000 ML IV PRN ×2 (06:58)
[2018-05-25 07:00] VITALS: BP 139/69
[2018-05-25] MEDS ORDERED: LABETALOL 20 MG/4 ML DISP.SYRIN. IVP PRN (07:00)
[2018-05-25] MEDS ORDERED: DIALYSIS PATIENT. MC PRN ×2 (07:00)
[2018-05-25] MEDS ORDERED: LOSARTAN POTASSIUM 50 MG TABLET. PO SCH (09:00)
--- NOTE | 2018-05-25 09:59 | PDOC ---
PROGRESS NOTES Subjective Subjective fels better. seen during hemodialysis. hungry. no further nausea or vomiting. 1 loose stool yesterday. lab reviewed. bp and blood sugars are okay. Objective Objective Vital Signs Date Time Temp Pulse Resp B/P (MAP) Pulse Ox O2 Delivery O2 Flow Rate FiO2 05/25/18 07:00 98.6 66 18 139/69 (92) 99 2.0 98.6 05/24/18 20:00 Nasal Cannula Intake and Output 05/25/18 06:59 Intake Total 1200 ml Output Total 0 ml Balance 1200 ml Intake Oral 1200 ml Output Urine Total 0 ml Physical Exam Abdomen: Soft Heart: Regular rate, Normal S1, Normal S2 Extremities: No edema General: Alert HEENT: Atraumatic Lungs: Clear to auscultation Neuro: Normal speech Psych/Mental Status: Mental status NL Skin: No rashes Assessment Assessment Problems1. Nausea, vomiting and diarrhea, most likely secondary to an acute gastroenteritis. improved 2. End-stage renal disease, on hemodialysis. 3. Hypertension. Her blood pressure is elevated. 4. Hyperlipidemia. 5. Diabetes mellitus type 2. 6. Obstructive sleep apnea. 7. Cystic splenic mass, which is slowly increasing in size since 2015. oncology recommends out patient PET scan Medical Problems: (1) Diarrhea Status: Acute (2) Hyperkalemia Status: Acute Plan Plan of Care dismiss today out patient PET scan Comment Review of Relevant I have reviewed the following items jorge (where applicable) has been applied. Labs Laboratory Tests Test 05/23/18 11:10 05/23/18 11:20 05/23/18 17:12 05/23/18 20:37 Influenza Type A Antigen Negative (NEGATIVE) Influenza Type B Antigen Negative (NEGATIVE) White Blood Count 6.6 x10^3/uL (4.0-11.0) Red Blood Count 3.82 x10^6/uL (3.50-5.40) Hemoglobin 11.0 g/dL (12.0-15.5) Hematocrit 34.3 % (36.0-47.0) Mean Corpuscular Volume 90 fL (79-100) Mean Corpuscular Hemoglobin 29 pg (25-35) Mean Corpuscular Hemoglobin Concent 32 g/dL (31-37) Red Cell Distribution Width 14.7 % (11.5-14.5) Platelet Count 197 x10^3/uL (140-400) Neutrophils (%) (Auto) 88 % (31-73) Lymphocytes (%) (Auto) 3 % (24-48) Monocytes (%) (Auto) 6 % (0-9) Eosinophils (%) (Auto) 4 % (0-3) Basophils (%) (Auto) 0 % (0-3) Neutrophils # (Auto) 5.8 x10^3uL (1.8-7.7) Lymphocytes # (Auto) 0.2 x10^3/uL (1.0-4.8) Monocytes # (Auto) 0.4 x10^3/uL (0.0-1.1) Eosinophils # (Auto) 0.3 x10^3/uL (0.0-0.7) Basophils # (Auto) 0.0 x10^3/uL (0.0-0.2) Segmented Neutrophils % 71 % (35-66) Band Neutrophils % 20 % (0-9) Lymphocytes % 3 % (24-48) Monocytes % 3 % (0-10) Eosinophils % 3 % (0-5) Platelet Estimate Adequate (ADEQUATE) Anisocytosis Slight Ovalocytes Few Sodium Level 142 mmol/L (136-145) Potassium Level 5.8 mmol/L (3.5-5.1) Chloride Level 103 mmol/L (98-107) Carbon Dioxide Level 30 mmol/L (21-32) Anion Gap 9 (6-14) Blood Urea Nitrogen 73 mg/dL (7-20) Creatinine 8.0 mg/dL (0.6-1.0) Estimated GFR (Cockcroft-Gault) 6.1 BUN/Creatinine Ratio 9 (6-20) Glucose Level 150 mg/dL (70-99) Calcium Level 9.1 mg/dL (8.5-10.1) Magnesium Level 2.3 mg/dL (1.8-2.4) Total Bilirubin 0.4 mg/dL (0.2-1.0) Aspartate Amino Transf (AST/SGOT) 13 U/L (15-37) Alanine Aminotransferase (ALT/SGPT) 13 U/L (14-59) Alkaline Phosphatase 91 U/L (46-116) Creatine Kinase 56 U/L (26-192) Creatine Kinase MB (Mass) 1.2 ng/mL (0.0-3.6) Creatine Kinase MB Relative Index % (0-4) Troponin I Quantitative < 0.017 ng/mL (0.000-0.055) JG-Cvq-P-Type Natriuretic Peptide 04925 pg/mL (0-124) Total Protein 7.3 g/dL (6.4-8.2) Albumin 3.1 g/dL (3.4-5.0) Albumin/Globulin Ratio 0.7 (1.0-1.7) Lipase 228 U/L (73-393) Glucose (Fingerstick) 101 mg/dL (70-99) 86 mg/dL (70-99) Test 05/24/18 05:30 05/24/18 07:16 05/24/18 09:00 05/24/18 10:56 Sodium Level 137 mmol/L (136-145) Potassium Level 4.8 mmol/L (3.5-5.1) Chloride Level 99 mmol/L (98-107) Carbon Dioxide Level 29 mmol/L (21-32) Anion Gap 9 (6-14) Blood Urea Nitrogen 46 mg/dL (7-20) Creatinine 6.1 mg/dL (0.6-1.0) Estimated GFR (Cockcroft-Gault) 8.3 Glucose Level 88 mg/dL (70-99) Calcium Level 9.1 mg/dL (8.5-10.1) Magnesium Level 2.3 mg/dL (1.8-2.4) Lactate Dehydrogenase 188 U/L (81-234) Glucose (Fingerstick) 80 mg/dL (70-99) 108 mg/dL (70-99) White Blood Count 3.8 x10^3/uL (4.0-11.0) Red Blood Count 3.88 x10^6/uL (3.50-5.40) Hemoglobin 11.2 g/dL (12.0-15.5) Hematocrit 34.7 % (36.0-47.0) Mean Corpuscular Volume 89 fL (79-100) Mean Corpuscular Hemoglobin 29 pg (25-35) Mean Corpuscular Hemoglobin Concent 32 g/dL (31-37) Red Cell Distribution Width 15.1 % (11.5-14.5) Platelet Count 159 x10^3/uL (140-400) Neutrophils (%) (Auto) 62 % (31-73) Lymphocytes (%) (Auto) 13 % (24-48) Monocytes (%) (Auto) 15 % (0-9) Eosinophils (%) (Auto) 10 % (0-3) Basophils (%) (Auto) 1 % (0-3) Neutrophils # (Auto) 2.4 x10^3uL (1.8-7.7) Lymphocytes # (Auto) 0.5 x10^3/uL (1.0-4.8) Monocytes # (Auto) 0.6 x10^3/uL (0.0-1.1) Eosinophils # (Auto) 0.4 x10^3/uL (0.0-0.7) Basophils # (Auto) 0.0 x10^3/uL (0.0-0.2) Test 05/24/18 17:00 05/24/18 21:09 05/25/18 03:40 Glucose (Fingerstick) 102 mg/dL (70-99) 116 mg/dL (70-99) White Blood Count 3.8 x10^3/uL (4.0-11.0) Red Blood Count 3.51 x10^6/uL (3.50-5.40) Hemoglobin 10.1 g/dL (12.0-15.5) Hematocrit 31.5 % (36.0-47.0) Mean Corpuscular Volume 90 fL (79-100) Mean Corpuscular Hemoglobin 29 pg (25-35) Mean Corpuscular Hemoglobin Concent 32 g/dL (31-37) Red Cell Distribution Width 15.0 % (11.5-14.5) Platelet Count 142 x10^3/uL (140-400) Neutrophils (%) (Auto) 50 % (31-73) Lymphocytes (%) (Auto) 24 % (24-48) Monocytes (%) (Auto) 17 % (0-9) Eosinophils (%) (Auto) 9 % (0-3) Basophils (%) (Auto) 1 % (0-3) Neutrophils # (Auto) 1.9 x10^3uL (1.8-7.7) Lymphocytes # (Auto) 0.9 x10^3/uL (1.0-4.8) Monocytes # (Auto) 0.6 x10^3/uL (0.0-1.1) Eosinophils # (Auto) 0.3 x10^3/uL (0.0-0.7) Basophils # (Auto) 0.0 x10^3/uL (0.0-0.2) Sodium Level 137 mmol/L (136-145) Potassium Level 5.0 mmol/L (3.5-5.1) Chloride Level 98 mmol/L (98-107) Carbon Dioxide Level 28 mmol/L (21-32) Anion Gap 11 (6-14) Blood Urea Nitrogen 55 mg/dL (7-20) Creatinine 7.8 mg/dL (0.6-1.0) Estimated GFR (Cockcroft-Gault) 6.3 Glucose Level 92 mg/dL (70-99) Calcium Level 8.4 mg/dL (8.5-10.1) Laboratory Tests Test 05/24/18 10:56 05/24/18 17:00 05/24/18 21:09 05/25/18 03:40 Glucose (Fingerstick) 108 mg/dL (70-99) 102 mg/dL (70-99) 116 mg/dL (70-99) White Blood Count 3.8 x10^3/uL (4.0-11.0) Red Blood Count 3.51 x10^6/uL (3.50-5.40) Hemoglobin 10.1 g/dL (12.0-15.5) Hematocrit 31.5 % (36.0-47.0) Mean Corpuscular Volume 90 fL (79-100) Mean Corpuscular Hemoglobin 29 pg (25-35) Mean Corpuscular Hemoglobin Concent 32 g/dL (31-37) Red Cell Distribution Width 15.0 % (11.5-14.5) Platelet Count 142 x10^3/uL (140-400) Neutrophils (%) (Auto) 50 % (31-73) Lymphocytes (%) (Auto) 24 % (24-48) Monocytes (%) (Auto) 17 % (0-9) Eosinophils (%) (Auto) 9 % (0-3) Basophils (%) (Auto) 1 % (0-3) Neutrophils # (Auto) 1.9 x10^3uL (1.8-7.7) Lymphocytes # (Auto) 0.9 x10^3/uL (1.0-4.8) Monocytes # (Auto) 0.6 x10^3/uL (0.0-1.1) Eosinophils # (Auto) 0.3 x10^3/uL (0.0-0.7) Basophils # (Auto) 0.0 x10^3/uL (0.0-0.2) Sodium Level 137 mmol/L (136-145) Potassium Level 5.0 mmol/L (3.5-5.1) Chloride Level 98 mmol/L (98-107) Carbon Dioxide Level 28 mmol/L (21-32) Anion Gap 11 (6-14) Blood Urea Nitrogen 55 mg/dL (7-20) Creatinine 7.8 mg/dL (0.6-1.0) Estimated GFR (Cockcroft-Gault) 6.3 Glucose Level 92 mg/dL (70-99) Calcium Level 8.4 mg/dL (8.5-10.1) Medications Current Medications Ondansetron HCl (Zofran) 4 mg 1X ONCE IV Last administered on 05/23/18at 10:57 ; Start 05/23/18 at 10:30; Stop 05/23/18 at 10:31; Status DC Famotidine (Pepcid Vial) 20 mg 1X ONCE IVP Last administered on 05/23/18at 11: 00; Start 05/23/18 at 10:30; Stop 05/23/18 at 10:31; Status DC Sodium Chloride 250 ml @ 250 mls/hr 1X ONCE IV Last administered on at 11:05; Start 05/23/18 at 10:30; Stop 05/23/18 at 11:29; Status DC Hydralazine HCl (Apresoline Inj) 10 mg 1X ONCE IVP Last administered on at 13:30; Start 05/23/18 at 12:00; Stop 05/23/18 at 12:01; Status DC Iohexol (Omnipaque 300 Mg/ml) 75 ml 1X ONCE IV ; Start 05/23/18 at 12:15; Stop 05/23/18 at 12:16; Status DC Sodium Chloride 1,000 ml @ 1,000 mls/hr Q1H PRN IV hypotension; Start 05/23/18 at 13:24; Stop 05/23/18 at 19:23; Status DC Labetalol HCl (Normodyne Iv Push) 10 mg PRN Q1HR PRN IVP SBP > 180; Start 05/23 at 13:30; Stop 05/24/18 at 13:29; Status DC Sodium Chloride 1,000 ml @ 400 mls/hr Q2H30M PRN IV PATENCY; Start 05/23/18 at 13:24; Stop 05/24/18 at 01:23; Status DC Info (PHARMACY MONITORING -- do not chart) 1 each PRN DAILY PRN MC SEE COMMENTS ; Start 05/23/18 at 13:30; Status UNV Info (PHARMACY MONITORING -- do not chart) 1 each PRN DAILY PRN MC SEE COMMENTS ; Start 05/23/18 at 13:30 Ondansetron HCl (Zofran) 4 mg PRN Q6HRS PRN IV NAUSEA/VOMITING; Start 05/23/18 at 14:15; Stop 05/24/18 at 14:14; Status DC Morphine Sulfate (Morphine Sulfate) 4 mg PRN Q2HR PRN IV PAIN; Start 05/23/18 at 14:15; Stop 05/24/18 at 14:14; Status DC Sodium Chloride 1,000 ml @ 40 mls/hr Q24H IV Last administered on 05/24/18at 01 :52; Start 05/23/18 at 14:15; Stop 05/24/18 at 11:59; Status DC Prochlorperazine Edisylate (Compazine) 10 mg PRN Q6HRS PRN IV NAUSEA/VOMITING, 2ND CHOICE; Start 05/23/18 at 14:15 Acetaminophen (Tylenol) 650 mg PRN Q6HRS PRN PO MILD PAIN Last administered on 05/23/18at 16:02; Start 05/23/18 at 15:45; Stop 05/24/18 at 19:07; Status DC Ondansetron HCl (Zofran) 4 mg PRN Q6HRS PRN IV NAUSEA/VOMITING, 1ST CHOICE; Start 05/23/18 at 17:00 Aspirin (Ladarius Aspirin) 81 mg DAILYWBKFT PO Last administered on 05/24/18at 09: 10; Start 05/24/18 at 08:00 Carvedilol (Coreg) 25 mg BIDWMEALS PO Last administered on 05/24/18at 17:52; Start 05/23/18 at 17:00 Losartan Potassium (Cozaar) 50 mg DAILY PO Last administered on 05/24/18at 09:10 ; Start 05/24/18 at 09:00; Stop 05/24/18 at 11:59; Status DC Vitamin B Complex/ Vitamin C (Christen-Johnny) 1 tab DAILY PO Last administered on at 09:09; Start 05/24/18 at 09:00 Sevelamer Carbonate (Renvela) 1,600 mg TIDWMEALS PO Last administered on at 17:51; Start 05/23/18 at 17:00 Cinacalcet (Sensipar) 60 mg DAILY PO Last administered on 05/24/18at 09:07; Start 05/24/18 at 09:00 Acetaminophen (Tylenol) 650 mg PRN Q6HRS PRN PO MILD PAIN / TEMP; Start at 17:00 Amlodipine Besylate (Norvasc) 10 mg DAILY PO Last administered on 05/24/18at 09: 08; Start 05/24/18 at 09:00 Losartan Potassium (Cozaar) 100 mg DAILY PO ; Start 05/25/18 at 09:00 Sodium Chloride 1,000 ml @ 1,000 mls/hr Q1H PRN IV hypotension; Start 05/25/18 at 06:58; Stop 05/25/18 at 12:57 Labetalol HCl (Normodyne Iv Push) 10 mg PRN Q1HR PRN IVP SBP > 180; Start 05/25 at 07:00; Stop 05/26/18 at 06:59 Sodium Chloride 1,000 ml @ 400 mls/hr Q2H30M PRN IV PATENCY; Start 05/25/18 at 06:58; Stop 05/25/18 at 18:57 Info (PHARMACY MONITORING -- do not chart) 1 each PRN DAILY PRN MC SEE COMMENTS ; Start 05/25/18 at 07:00; Status UNV Info (PHARMACY MONITORING -- do not chart) 1 each PRN DAILY PRN MC SEE COMMENTS ; Start 05/25/18 at 07:00 Active Scripts Active Pravastatin Sodium 40 Mg Tablet 1 Tab PO QHS Cozaar (Losartan Potassium) 50 Mg Tablet 50 Mg PO DAILY 30 Days Renvela (Sevelamer Carbonate) 800 Mg Tablet 1,600 Mg PO TIDWMEALS 30 Days Carvedilol 25 Mg Tablet 25 Mg PO BIDWMEALS 30 Days Amlodipine Besylate 10 Mg Tablet 10 Mg PO DAILY 30 Days Reported Albuterol Sulfate Neb Soln (Albuterol Sulfate) 0.63 Mg/3 Ml Vial.neb 1 Vial NEB QID Symbicort 160-4.5 Mcg Inhaler (Budesonide/Formoterol Fumarate) 10.2 Gm Hfa.aer.ad 2 Puff IH BID Nephro-Johnny Tablet (Folic Acid/Vitamin B Comp W-C) 0.8 Mg Tablet 1 Tab PO DAILY Alphagan P (Brimonidine Tartrate) 5 Ml Drops 1 Drop OD BID Sensipar (Cinacalcet Hcl) 30 Mg Tablet 60 Mg PO DAILY Tylenol (Acetaminophen) 325 Mg Tablet 325 Mg PO Q4-6HRS PRN Proair Hfa Inhaler (Albuterol Sulfate) 8.5 Gm Hfa.aer.ad 2 Puff IH PRN Q4-6HRS Cosopt Eye Drops (Dorzolamide Hcl/Timolol Maleat) 10 Ml Drops 1 Drop EACHEYE BID Aspirin 81 Mg Tab.chew 81 Mg PO DAILY Vitals/I & O Vital Sign - Last 24 Hours 05/24/18 05/24/18 05/24/18 05/24/18 11:00 15:00 17:52 19:00 Temp 98.3 98.1 98.2 98.3 98.1 98.2 Pulse 70 70 70 66 Resp 18 18 B/P (MAP) 168/82 (110) 142/75 (97) 142/75 152/76 (101) Pulse Ox 98 96 98 O2 Delivery Room Air Room Air 05/24/18 05/24/18 05/25/18 05/25/18 20:00 23:00 03:00 07:00 Temp 98.8 98.3 98.6 98.8 98.3 98.6 Pulse 69 66 66 Resp 18 18 18 B/P (MAP) 141/66 (91) 144/81 (102) 139/69 (92) Pulse Ox 99 98 99 O2 Delivery Nasal Cannula O2 Flow Rate 2.0 2.0 Intake and Output 05/24/18 05/24/18 05/25/18 14:59 22:59 06:59 Intake Total 1200 ml Output Total 0 ml Balance 1200 ml DIVINA BRIGGS MD May 25, 2018 09:58
[2018-05-25] MEDS ORDERED: ONDANSETRON ODT 4 MG TAB.RAPDIS. PO PRN (10:00)
[2018-05-25] MEDS ORDERED: ONDA4TAB12 PO (10:05)
[2018-05-25] MEDS ORDERED: LOSA-73 PO (10:05)
--- NOTE | 2018-05-25 10:06 | DISCH ---
DISCHARGE INSTRUCTIONS Condition on Discharge Condition on Discharge: Stable Activity After Discharge Activity Instructions for Disc: No restrictions, Activity as tolerated Exercise Instruction after Dis: Progress as tolerated Driving Instructions after Dis: Do not drive Weight Bearing Status after Di: As tolerated Diet after Discharge Diet after Discharge: Renal Dialysis, Diabetic No Calorie Level Diet Texture: Regular Liquid Texture: Thin Liquid Wound Incision Care Wound/Incision Care: No wound care needed Checks after Discharge Checks after discharge: Check blood press - daily, Check blood sugar, ac/hs, Weigh Yourself Daily Contacting the DR. after DC Call your doctor for: If your condition worsens Follow-Up Follow up with: dr. lanza next week Follow Up With: need to arrange PET scan as out patient to evaluate splenic cystic mass Treatment/Equipment after DC Adaptive Equipment Issued: Venkat Jiménez Discharge Respiratory Equipmen: Oxygen DIVINA LANZA MD May 25, 2018 10:06
--- NOTE | 2018-05-25 10:10 | PDOC ---
Provider Note Provider Note discharge summary dictated # [id number] DIVINA BRIGGS MD May 25, 2018 10:10
--- NOTE | 2018-05-25 11:09 | PDOC ---
Renal-Progress Notes Subjective Notes Notes FEELING BETTER History of Present Illness Hx of present illness STABLE Vitals Vitals Vital Signs Date Time Temp Pulse Resp B/P (MAP) Pulse Ox O2 Delivery O2 Flow Rate FiO2 05/25/18 07:00 98.6 66 18 139/69 (92) 99 2.0 98.6 05/24/18 20:00 Nasal Cannula Weight Weight [ ] I.O. Intake and Output Intake and Output 05/25/18 06:59 Intake Total 1200 ml Output Total 0 ml Balance 1200 ml Intake Oral 1200 ml Output Urine Total 0 ml Labs Labs Laboratory Tests Test 05/24/18 17:00 05/24/18 21:09 05/25/18 03:40 Glucose (Fingerstick) 102 mg/dL (70-99) 116 mg/dL (70-99) White Blood Count 3.8 x10^3/uL (4.0-11.0) Red Blood Count 3.51 x10^6/uL (3.50-5.40) Hemoglobin 10.1 g/dL (12.0-15.5) Hematocrit 31.5 % (36.0-47.0) Mean Corpuscular Volume 90 fL (79-100) Mean Corpuscular Hemoglobin 29 pg (25-35) Mean Corpuscular Hemoglobin Concent 32 g/dL (31-37) Red Cell Distribution Width 15.0 % (11.5-14.5) Platelet Count 142 x10^3/uL (140-400) Neutrophils (%) (Auto) 50 % (31-73) Lymphocytes (%) (Auto) 24 % (24-48) Monocytes (%) (Auto) 17 % (0-9) Eosinophils (%) (Auto) 9 % (0-3) Basophils (%) (Auto) 1 % (0-3) Neutrophils # (Auto) 1.9 x10^3uL (1.8-7.7) Lymphocytes # (Auto) 0.9 x10^3/uL (1.0-4.8) Monocytes # (Auto) 0.6 x10^3/uL (0.0-1.1) Eosinophils # (Auto) 0.3 x10^3/uL (0.0-0.7) Basophils # (Auto) 0.0 x10^3/uL (0.0-0.2) Sodium Level 137 mmol/L (136-145) Potassium Level 5.0 mmol/L (3.5-5.1) Chloride Level 98 mmol/L (98-107) Carbon Dioxide Level 28 mmol/L (21-32) Anion Gap 11 (6-14) Blood Urea Nitrogen 55 mg/dL (7-20) Creatinine 7.8 mg/dL (0.6-1.0) Estimated GFR (Cockcroft-Gault) 6.3 Glucose Level 92 mg/dL (70-99) Calcium Level 8.4 mg/dL (8.5-10.1) Review of Systems Constitutional: yes: malaise, weakness, alert, oriented Ears/Nose/Throat: Yes: no symptom reported Eyes: Yes: no symptom reported Pulmonary: Yes no symptom reported Cardiovascular: Yes no symptom reported Gastrointestional: Yes: nausea, vomiting, diarrhea Genitourinary: Yes: no symptom reported Musculoskeletal: Yes: no symptom reported, muscle stiffness Skin: Yes no symptom reported Psychiatric/Neurological: Yes: no symptom reported Endocrine: Yes: no symptom reported Physical Exam General Appearance: no apparent distress Skin: warm Respiratory: decreased breath sounds Heart: S1S2 Abdomen: soft, bowel sounds present Genitourinary: bladder flat Extremities: pulses present Neurology: alert Musculoskeletal: Osteoarthritis Assessment Assessment MP GASTROENTERITIS-BETTER DEHYDRATION-BETTER ANEMIA HTN ESRD PLAN HD TODAY UF TO DW D/C PLANS NOTED WILL SIGN OFF NEXT HD OP ON MONDAY CODY NORMAN MD May 25, 2018 11:09
--- NOTE | 2018-05-25 13:45 | NUR ---
SW following pt. SW assisted pt with AD and pt signed AD form. SW provided pt with notarized AD form and copies to take home. A copy placed on chart.
--- NOTE | 2018-05-25 17:42 | NUR ---
Discharge Note: [facility] Discharge instructions and discharge home medications reviewed with Patient and a copy given. All questions have been answered and understanding verbalized. The following instructions and handouts were given: Renal Diet and Discharge Instructions. Discontinued lines and drains: PIV in Righ Hand removed, Catheter intact. Patient discharged to Home with Son via Private Vehicle
--- NOTE | 2018-05-25 19:06 | DS ---
DATE OF DISCHARGE: 05/25/2018 CONSULTANTS: Dr. Perkins and Dr. Hdz. FINAL DIAGNOSES: 1. Acute gastroenteritis. 2. Intractable nausea, vomiting, and diarrhea due to acute viral gastroenteritis. 3. End-stage renal disease on hemodialysis Mondays, Wednesdays and Fridays. 4. Hypertension. 5. Diabetes mellitus type 2, treated with diet. 6. Hyperlipidemia. 7. Obstructive sleep apnea. 8. Slightly increased cystic splenic mass seen slowly increasing in size since 2014. HOSPITAL COURSE: The patient is a 67-year-old -[place] female with history of end-stage renal disease, on hemodialysis Mondays, Wednesdays and Fridays, who has diabetes mellitus type 2, treated with diet; hypertension; hyperlipidemia; obstructive sleep apnea, treated with CPAP, who noted the onset of nausea, vomiting and diarrhea 10:00 p.m. the night before admission with some lower abdominal cramps without any hematemesis. She felt feverish, but did not check her temperature and denied any melena or hematochezia. She missed her hemodialysis that morning because of her symptoms and sought help at the [facility] Emergency Room on 05/23/2018. Acute abdominal series was negative for bowel obstruction. CAT scan of the abdomen and pelvis was unremarkable except she has a cystic mass in her spleen, which was slowly increasing in size since 2014. The patient was admitted to the hospital, started on IV fluids. Diet was eventually advanced to clear liquids and then full liquids and then she will be advanced to a renal diet today. She was seen by Dr. Perkins in consultation for hemodialysis and received hemodialysis Monday and today, Monday. Seen by Dr. Hdz for Oncology to evaluate the increasing splenic mass, who recommended outpatient PET scan which will be ordered. The patient is aware of this. Blood pressure was high and her losartan was increased to 100 mg every day. Her diet was advanced and did not have any nausea or vomiting yesterday, had one loose stool today and nothing today so far. She is presently receiving hemodialysis. She will therefore be dismissed to the home on a renal diabetic diet and she was told that she has an appointment to see Dr. Briggs in the office on 05/29/2018. She was told that she will need to have an outpatient PET scan arranged, which we can do through our office and she will be dismissed on amlodipine 10 mg every day, carvedilol 25 mg b.i.d., losartan increased to 100 mg every day, Nephro-Johnny 1 every day, pravastatin 40 mg every day, ProAir inhaler 2 puffs every 4 hours p.r.n., Renvela 1600 mg t.i.d. with meals, Sensipar 60 mg every day and Tylenol 325 mg 1-2 every 4 hours p.r.n. and continue with her glaucoma eyedrops medication. Also dismissed on Zofran 4 mg p.o. every 6 hours p.r.n. for nausea and vomiting, 20 tablets and no refill. She will continue with her outpatient hemodialysis on Monday, Wednesdays and Fridays. DIVINA BRIGGS MD DR: AZUCENA/miles JOB#: [id number] / [id number]
== END 2018-05-25 15:30 | disposition home or self-care (01) | DRG 391 ==
LOC: ER 09:58 → 5 SOUTH 13:11
PROVIDERS: ADMIT Internal Medicine; ATTEND Internal Medicine
PROC: 5A1D70Z Performance of Urinary Filtration, Intermittent, Less than 6 Hours Per Day (ICD-10-PCS; principal; 2018-05-23)
PROC: 5A1D70Z Performance of Urinary Filtration, Intermittent, Less than 6 Hours Per Day (ICD-10-PCS; 2018-05-25)
DX: A08.4 Viral intestinal infection, unspecified (principal); N18.6 End stage renal disease; I12.0 Hypertensive chronic kidney disease with stage 5 chronic kidney disease or end stage renal disease; Z99.2 Dependence on renal dialysis; E78.5 Hyperlipidemia, unspecified; G47.33 Obstructive sleep apnea (adult) (pediatric); E87.5 Hyperkalemia; D25.9 Leiomyoma of uterus, unspecified; D64.9 Anemia, unspecified; E11.22 Type 2 diabetes mellitus with diabetic chronic kidney disease; E78.00 Pure hypercholesterolemia, unspecified; E86.0 Dehydration; G89.29 Other chronic pain; D73.4 Cyst of spleen; H40.9 Unspecified glaucoma; H54.62 Unqualified visual loss, left eye, normal vision right eye; I25.10 Atherosclerotic heart disease of native coronary artery without angina pectoris; I27.81 Cor pulmonale (chronic); E21.3 Hyperparathyroidism, unspecified; E66.9 Obesity, unspecified; M19.90 Unspecified osteoarthritis, unspecified site; E11.42 Type 2 diabetes mellitus with diabetic polyneuropathy; I25.2 Old myocardial infarction; J44.9 Chronic obstructive pulmonary disease, unspecified; Z82.49 Family history of ischemic heart disease and other diseases of the circulatory system; Z86.010 Personal history of colon polyps; Z86.711 Personal history of pulmonary embolism; Z83.3 Family history of diabetes mellitus; Z86.73 Personal history of transient ischemic attack (TIA), and cerebral infarction without residual deficits; Z98.41 Cataract extraction status, right eye; Z91.040 Latex allergy status; Z79.4 Long term (current) use of insulin; Z87.81 Personal history of (healed) traumatic fracture; Z68.29 Body mass index [BMI] 29.0-29.9, adult; Z91.011 Allergy to milk products; Z90.49 Acquired absence of other specified parts of digestive tract
CPT/HCPCS: 36415; 74022; 74177; 80048; 80053; 82553; 82962; 83615; 83690; 83735; 83880; 84484; 85007; 85025; 87804; 93005; 96361; 96374; 96375; J0360; J2405; J3490; J7050; 99285-25; J7030

== ENCOUNTER → 2018-05-31 | Outpatient (CLI) | payer MEDICARE ==
[2018-05-25 07:00] VITALS: BP 139/69
[~2018-05-31] MED LIST changes: +ONDA4TAB12 PO
--- NOTE | 2018-05-31 12:41 | RAD ---
PET ONCOLOGY CLINICAL INDICATION: Splenic tumor. Initial exam.. FDG PET-CT of the Body TECHNIQUE: The patient received an IV injection of 15 mCi 18F-FDG in the left antecubital fossa. After an initial uptake phase of approximately 60-90 minutes, a CT scan without oral contrast, without IV contrast was acquired. Subsequently, positron emission tomography images from the skull base to mid thigh were obtained. CT, PET and fused images were reconstructed in transaxial, coronal, and sagittal projections and interpreted from a workstation. The patient's plasma glucose was 135 mg/dl. PRIOR STUDIES: No prior studies CORRELATIVE STUDIES: CT abdomen pelvis from 05/23/2018 FINDINGS: CT: Limited exam due to lack of IV contrast. Atrophic and calcified left eye noted. Noncontrast appearance of the visualized sections through the brain within normal limits. The noncontrast appearance of the nasopharynx, oropharynx and hypopharynx within normal limits. No enlarged deep cervical adenopathy. No enlarged axillary or mediastinal adenopathy. Calcified mediastinal lymph node is seen, nonspecific and likely secondary to prior healed granulomatous disease. Evaluation of hilar lymphadenopathy is limited due to lack of IV contrast. Heart is moderately enlarged in size. Coronary artery calcifications. No pericardial or pleural effusion. Scarring or subsegmental atelectasis in the bilateral lung bases. Liver is normal in morphology. Redemonstrated is a low attenuating lesion in the spleen measuring 8.2 x 6.0 cm. Noncontrast appearance of the pancreas within normal limits. Status post cholecystectomy. Multiple bilateral low attenuating lesions are seen in the kidneys most likely simple cysts. My lipoma is seen in the right adrenal gland. Diffuse atherosclerotic disease of the abdominal aorta and its major branches. No free pelvic fluid or ascites. No bowel obstruction. Normal appendix. Calcified fibroids in the uterus. Urinary bladder is within normal limits. Diffuse sclerotic appearance of the bones is seen which may be from renal osteodystrophy. PET: Increased metabolic activity seen in the right lateral pterygoid muscle with SUV max of 4.3. Increased activity seen in the right longus colli muscle with SUV max of 5.2. Increased activity seen in the left thyroid lobe with SUV max of 13. This corresponds to a hypoattenuating nodule. Mild increased activity seen in the distal esophagus with SUV max of 4.6. No abnormal metabolic activity seen in the splenic lesion. IMPRESSION: 1. Increased metabolic activity in the right pterygoid muscle and longus colli muscle likely muscular strain. 2. Increased metabolic activity in the left thyroid lobe nodule. Dedicated ultrasound of the thyroid recommended. 3. Mild increase activity in the distal esophagus may be secondary to esophagitis. Electronically signed by: Narciso Hill DO (05/31/2018 12:38 PM) [facility]
== END | disposition home or self-care (01) ==
LOC: PETSC 11:01
PROVIDERS: ATTEND Internal Medicine
DX: D73.4 Cyst of spleen (principal); E04.1 Nontoxic single thyroid nodule; K20.9 Esophagitis, unspecified; I25.10 Atherosclerotic heart disease of native coronary artery without angina pectoris; Z90.49 Acquired absence of other specified parts of digestive tract
CPT/HCPCS: 78815; A9552

== ENCOUNTER → 2018-06-21 | Outpatient (CLI) | payer MEDICARE ==
[2018-05-25 07:00] VITALS: BP 139/69
--- NOTE | 2018-06-21 17:26 | RAD ---
Examination: THYROID ULTRASOUND History: Abnormal PET scan

Comparison/Correlation: None Findings: Thyroid ultrasound exam was performed. Right thyroid lobe measures 5 cm x by 2 cm by 1.7 cm. Left thyroid lobe measures 4.5 cm x 2.4 cm x 1.9 cm. Thyroid echotexture is unremarkable. Hypoechoic nonvascular lymph node involving the left thyroid interpolar region measures 0.6 cm x 0.4 cm by 0.3 cm. At the left thyroid lobe inferior pole, there is a heterogeneously hypoechoic measuring 1.9 cm x 1.7 cm by 1.4 cm. Flow is evident within it. Thyroid isthmus measures 0.43 cm. Impression: Left thyroid inferior pole heterogeneously hypoechoic dominant mass. Ultrasound-guided fine needle aspiration should be considered. Electronically signed by: Hiram Julio MD (06/21/2018 5:23 PM) [facility]
== END | disposition home or self-care (01) ==
LOC: US 14:09
PROVIDERS: ATTEND Internal Medicine
DX: E07.89 Other specified disorders of thyroid (principal)
CPT/HCPCS: 76536

== ENCOUNTER → 2018-07-19 | Outpatient (CLI) | payer MEDICARE ==
--- NOTE | 2018-07-19 12:17 | RAD ---
Ultrasound-guided left thyroid biopsy, 07/19/2018: History: Suspicious thyroid nodule Under local anesthesia, aseptic conditions and sonographic guidance a 25-gauge was passed into the nodule in the lower pole of the left lobe of the gland via an anteromedial approach. 4 separate aspirates were obtained from this nodule in this manner with the materials sent to pathology for evaluation. Hemostasis was then obtained. The patient tolerated the procedure well and left the department in good condition.
--- NOTE | 2018-07-20 16:06 | PATHOLOGY ---
Note [facility] Accession Number: [id number] TESTS RESULT FLAG UNITS REF RANGE LAB Clinician Provided Cytology Information No. of containers..01 Other (Miscellaneous) Source: LEFT THYROID INF NOD DIAGNOSIS: LEFT THYROID INF NOD NEGATIVE FOR MALIGNANT CELLS. BETHESDA CATEGORY II. SPECIMEN CONSISTS OF BENIGN FOLLICULAR CELLS, HEMOSIDERIN-LADEN MACROPHAGES, COLLOID, AND BLOOD. THIS PATTERN IS CONSISTENT WITH A COLLOID NODULE. COLLOID IS PRESENT. ABUNDANT RED BLOOD CELLS ARE PRESENT. THIS INTERPRETATION INCLUDES EVALUATION OF A CELL BLOCK. Pathologist ICD10: 02 E04.1 Signed out by: Keyur Stock MD, Pathologist NPI- [id number] Performed by: Caitie Reynoso, Dandy Operator ([facility]) Gross description: 01 30ML, RED, CLEAR /LCS FLAG LEGEND: L-Low Normal,H-High Normal,LL-Alert Low,HH-Alert High <-Panic Low,>-Panic High,A-Abnormal,AA-Critical Abnormal Performed at: [facility] [address] [facility] [address] [place] [address] Joe Pierce MD, 02 [facility] [address] [place] [address] Siddhartha Martinez MD, Specimen Comment: A courtesy copy of this report has been sent to Specimen Comment: [phone], . Specimen Comment: Report sent to / DR BRIGGS Specimen Comment: A duplicate report has been generated due to demographic updates. Performed at: [address], [place], [place] [id number] MD Joe Pierce MD Phone: [phone]
== END | disposition home or self-care (01) ==
LOC: US 09:27
PROVIDERS: ATTEND Internal Medicine
DX: E04.1 Nontoxic single thyroid nodule (principal); Z91.040 Latex allergy status; Z91.011 Allergy to milk products
CPT/HCPCS: 10005; 60300; 76942; 88173; 88305

== ENCOUNTER → 2019-02-21 | Day surgery (SDC) | payer MEDICARE ==
[~2019-02-21] MED LIST changes: +IV NORMAL SALINE 1000ML BAG 1,000 ML IV ONE; +IV RINGERS,LACTATED 1000ML 1,000 ML IV SCH; +LIDOCAINE 2% PF 5 ML VIAL. ONE; +PROPOFOL 20 ML IV ONE
[2019-02-21 14:40] VITALS: BP 138/51
--- NOTE | 2019-02-22 01:19 | CONS ---
DATE OF CONSULTATION: 02/21/2019 GASTROINTESTINAL CONSULTATION REFERRING PHYSICIAN: Feliz La MD REASON FOR CONSULTATION: Gastroesophageal reflux disease and dysphagia. HISTORY OF PRESENT ILLNESS: This is a 68-year-old -F[place]ian female with past medical history significant for end-stage renal disease, on dialysis x 12 years with an AV shunt in the left arm as well as diabetes, hypertension, hyperlipidemia, seen with worsening reflux. She states that food does intermittently stick, mainly solids in the substernal location. There has been no change in weight or appetite. Risk factors for reflux are negative for alcohol and tobacco, but positive for caffeine in the form of coffee. She has not undergone previous upper endoscopy with continued issues, requests additional evaluation. PAST MEDICAL HISTORY: COPD, end-stage renal disease, on dialysis, hyperlipidemia, hypertension. ALLERGIES: LATEX, MILK. MEDICATIONS: Include Tylenol, albuterol, aspirin, Alphagan, carvedilol, Sensipar, dorzolamide, and timolol eye drops, losartan, Zofran, pravastatin, and Renvela. SOCIAL HISTORY: She is retired. Does not drink or smoke. She is on disability. FAMILY HISTORY: Noncontributory. REVIEW OF SYSTEMS: Per records. PHYSICAL EXAMINATION: GENERAL: Reveals a well-nourished, well-developed -Fijian female. VITAL SIGNS: Temperature is 97.5, pulse 77, respiratory rate 18. HEENT: There is no decrease in visual acuity issues. CARDIAC: S1, S2 without S3, S4 or appreciable murmur. LUNGS: Clear. ABDOMEN: Reveals soft abdomen, normal bowel sounds, without appreciable hepatosplenomegaly. EXTREMITIES: Reveals no cyanosis, clubbing or edema. Fistula, left forearm. IMPRESSION: Gastroesophageal reflux disease with breakthrough symptoms and dysphagia. Differential includes Schatzki's ring, malignancy, Clark's, gastroparesis, eosinophilic esophagitis and/or achalasia. Therefore, recommend upper endoscopy with possible biopsy and dilatation. Risks and benefits of procedure including risk of hemorrhage and perforation requiring operation were discussed. The patient is willing to proceed. JOHN BOONE MD DR: NESTOR/miles JOB#: [id number] / [id number]
--- NOTE | 2019-02-22 18:06 | PATHOLOGY ---
[facility] Accession Number: [id number] . 01 Material submitted: . esophagus - GE JUNCTION NODULE . 01 Clinical history: . GERD . 02 Diagnosis: Gastroesophageal junction, nodule biopsies: - Segments of hyperplastic squamous esophageal mucosa, esophagogastric mucosa, and gastric mucosa showing focal gastric foveolar hyperplasia and moderate chronic and mild acute inflammation with focal erosion. LBQ 02/22/2019 0944 Local . 02 Comment: Sections of the gastroesophageal junction nodule biopsy reveals segments of hyperplastic squamous esophageal mucosa, esophagogastric mucosa, and gastric mucosa. There is focal gastric foveolar hyperplasia with moderate chronic and mild acute inflammation and focal superficial mucosal erosion. There is no evidence of Clark's change, dysplasia, or malignancy. (JPM/db; 02/22/2019) . 02 Electronically signed: . Siddhartha Martinez MD, Pathologist NPI- [id number] . 01 Gross description: . Received in formalin labeled "Caitie Soto, GE junction nodule," are 6 segments of snowden soft tissue measuring 0.5 x 0.5 x 0.1 cm in aggregate dimensions and ranging from 0.1 to 0.5 cm in maximum dimension. The specimen is submitted entirely in cassette A1. (TSD; 02/21/2019) TOB/TOB 02/21/2019 1753 Local . 02 Pathologist provided ICD-10: K20.8 . 02 CPT . 573075 Specimen Comment: A courtesy copy of this report has been sent to [phone], [phone] Specimen Comment: [phone] Specimen Comment: Report sent to and Performed at: [address], [place], [place] [id number] MD Joe Pierce MD Phone: [phone] Performed at: [address] [id number] MD Siddhartha Martinez MD Phone: [phone]
== END ==
LOC: ENDOS 12:31
PROVIDERS: ATTEND Internal Medicine Gastroenterology
DX: K21.0 Gastro-esophageal reflux disease with esophagitis (principal); K29.50 Unspecified chronic gastritis without bleeding; J44.9 Chronic obstructive pulmonary disease, unspecified; E78.5 Hyperlipidemia, unspecified; I12.0 Hypertensive chronic kidney disease with stage 5 chronic kidney disease or end stage renal disease; N18.6 End stage renal disease; Z91.040 Latex allergy status; Z91.011 Allergy to milk products
CPT/HCPCS: 43239; 88305; J2001; J2704

== ENCOUNTER → 2019-06-19 | Outpatient (CLI) | payer MEDICARE ==
[2019-02-21 14:40] VITALS: BP 138/51
[~2019-06-19] MED LIST changes: -IV NORMAL SALINE 1000ML BAG 1,000 ML IV ONE; -IV RINGERS,LACTATED 1000ML 1,000 ML IV SCH; -LIDOCAINE 2% PF 5 ML VIAL. ONE; -PROPOFOL 20 ML IV ONE
--- NOTE | 2019-06-19 10:46 | KCIC ---
Bilateral lower extremity arterial duplex Doppler ultrasound HISTORY: Absent palpable pulses left leg, no palpable pulses left foot, diabetic. FINDINGS: Diffuse plaquing of the left leg arteries. Biphasic waveforms with brisk systolic upstrokes and normal velocities without evidence of significant stenosis or occlusion of the left common femoral artery, profunda femoral artery or superficial femoral artery. The popliteal artery demonstrates biphasic waveform with peak systolic velocity 156 m/s which is slightly more than twice the distal femoral artery velocity 74 cm/s, suggesting a stenosis of the popliteal artery of 50 percent. Monophasic waveform with normal velocities of the posterior tibial and anterior tibial arteries of 50 and 60 cm/s respectively. There is a biphasic waveform with increased peak systolic velocity of 111 cm/s of the peroneal artery suggesting stenosis of 50 percent. The dorsalis pedis artery demonstrates elevated peak systolic velocity of 184 cm/s and mild spectral broadening, relative to the upstream posterior tibial artery velocity of 50 cm/s, suggesting dorsalis pedis artery stenosis of greater than 75 percent. IMPRESSION: 1. Diffuse plaquing of the left leg arteries. No occlusion evident. 2. Elevated flow velocity suggesting high-grade stenosis of the left dorsalis pedis artery as described above. 3. Elevated flow velocities suggesting moderate stenosis of the left popliteal artery and peroneal artery as described above. Electronically signed by: Evin Diaz MD (06/19/2019 10:42 AM) [id number]
== END | disposition home or self-care (01) ==
LOC: KCIC US 09:30
PROVIDERS: ATTEND Internal Medicine
DX: E11.51 Type 2 diabetes mellitus with diabetic peripheral angiopathy without gangrene (principal)
CPT/HCPCS: 93926

== ENCOUNTER 2019-09-10 08:17 | Outpatient (CLI) | payer MEDICARE ==
[2019-09-10] VITALS (10 sets, daily range): BP systolic 119–168; BP diastolic 59–87
[~2019-09-10] VITALS: Ht 160 cm; Wt 83.9 kg
[2019-09-10 08:45] LABS: BASO # 0.1 x10^3/uL (0.0-0.2); BASO % 1 % (0-3); EOS # 0.5 x10^3/uL (0.0-0.7); EOS % 7 % (0-3); HEMATOCRIT 37.1 % (36.0-47.0); HEMOGLOBIN 12.5 g/dL (12.0-15.5); LYMPH # 1.1 x10^3/uL (1.0-4.8); LYMPH % 13 % (24-48); MEAN CORPUSCULAR HEMOGLOBIN 30 pg (25-35); MEAN CORPUSCULAR HGB CONC 34 g/dL (31-37); MEAN CORPUSCULAR VOLUME 89 fL (79-100); MONO # 0.8 x10^3/uL (0.0-1.1); MONO % 10 % (0-9); NEUT # 5.5 x10^3/uL (1.8-7.7); NEUT % 69 % (31-73); PLATELET COUNT 218 x10^3/uL (140-400); RED BLOOD COUNT 4.16 x10^6/uL (3.50-5.40); RED CELL DISTRIBUTION WIDTH 14.5 % (11.5-14.5); WHITE BLOOD COUNT 7.9 x10^3/uL (4.0-11.0)
[2019-09-10] MEDS ORDERED: LIDOCAINE WITH 8.4% SOD BICARB 3 ML DISP.SYRIN. ONE (09:14)
[2019-09-10] MEDS ORDERED: IODIXANOL 320 MG/ML 100 ML VIAL. ONE (09:14)
[2019-09-10 09:18] LABS: PROTHROMBIN TIME PATIENT 13.6 SEC (11.7-14.0)
[2019-09-10 09:23] LABS: CALCIUM 9.3 mg/dL (8.5-10.1); CREATININE 7.5 mg/dL (0.6-1.0); GFR 6.5; POTASSIUM 4.7 mmol/L (3.5-5.1)
[2019-09-10] MEDS ORDERED: HEPARIN for IV BOLUS 10,000 UNIT/10 ML VIAL. ONE (10:07)
[2019-09-10] MEDS ORDERED: fentaNYL PF VIAL 100 MCG/2 ML VIAL ONE (10:07)
[2019-09-10] MEDS ORDERED: MIDAZOLAM HCL/PF 2 MG/2 ML VIAL. ONE (10:07)
[2019-09-10] MEDS ORDERED: CONTRAST GIVEN. MC PRN (11:15)
[2019-09-10] MEDS ORDERED: IODIXANOL 320 MG/ML 100 ML VIAL. IART ONE (11:15)
[2019-09-10] MEDS ORDERED: LIDOCAINE WITH 8.4% SOD BICARB 3 ML DISP.SYRIN. IJ ONE (11:15)
[2019-09-10] MEDS ORDERED: fentaNYL PF VIAL 100 MCG/2 ML VIAL IV ONE (11:15)
[2019-09-10] MEDS: MIDAZOLAM HCL/PF 2 MG/2 ML VIAL. IV ONE ×2 (11:28→11:30)
[2019-09-10] MEDS ORDERED: CALC200T3 PO (12:58)
[2019-09-10] MEDS ORDERED: FOLI0.8T32 PO (12:58)
--- NOTE | 2019-09-10 14:14 | RAD ---
Procedure: [id number] ANGIO ABDOMIN AORTOGRAM Date: 09/10/2019 10:42 AM Clinical Indication: L LEG GREAT TOE PAIN, WOUND, PERIPHERAL ARTERIAL DISEASE, DIABETES, ON DIALYSIS Sedation: Conscious sedation was administered for 120 minutes. Intravenous Versed and fentanyl were given. The patient was monitored by a qualified independent observer throughout the time of sedation. Please refer to the medical record for exact doses of medications utilized to achieve moderate sedation. Fluoroscopy time: 10.4 minutes Dose area product: 239 Gycm2 Consent: The procedure was explained in its entirety to the patient and her family, including a discussion of the risks, benefits and commonly accepted alternatives to the procedure, as well as the expected consequences of no therapy whatsoever. Discussion of the risks included, but was not limited to, those that are most frequent and those that are rare but possibly severe or life-threatening, as well as the possibility of unforeseen complications. Sterility: All elements of maximal sterile barrier technique including the use of a cap, mask, sterile gown, sterile gloves, large sterile sheet, appropriate hand hygiene, and 2% chlorhexidine for cutaneous antisepsis (or acceptable alternative antiseptic per current guidelines) were followed for this procedure. Technique and Findings: Following informed consent, the patient was prepped and draped in the usual sterile fashion. Ultrasound evaluation of the right common femoral artery demonstrated patency. Single wall puncture into the right common femoral artery was obtained. Sonographic image demonstrating this was saved and sent to PACS. A 0.018 inch wire was then advanced through the micropuncture needle. Small dermatotomy was made. Marked fracture needle was removed and replaced with a micropuncture sheath. 0.018 inch wire and inner dilator were removed and replaced with a 0.035 inch Bentson wire. Bentson wire was advanced into the abdominal aorta. Mitral puncture sheath was removed and replaced with a 5 Georgian, 10 cm vascular sheath. An Omni flush catheter was then advanced over the wire and positioned into the upper aspect of the abdominal aorta. Abdominal aortogram was then performed. This demonstrates normal tapering of the abdominal aorta. The celiac artery, superior mesenteric artery, and bilateral renal arteries are patent. The SHANNAN is not clearly seen, but the SMA branches overlie its origin limiting evaluation. The bilateral common iliac and visualized external iliac arteries appear widely patent. The Omni Flush catheter was then retracted to just above the iliac bifurcation and bilateral oblique pelvic arteriograms were then performed. This demonstrates patency of the bilateral common iliac and external iliac arteries. Mild narrowing of the bilateral internal iliac arteries at their origins. The Omni Flush catheter and wire were then used to select into the contralateral iliac system and further into the contralateral common femoral artery. Omni Flush catheter was then advanced [id number] and positioned into the left common femoral artery. A common femoral arteriogram was then performed which demonstrated wide patency of the left common femoral artery, profunda femoris artery, and visualized superficial femoral artery. The Omni flush catheter was then advanced over the wire into the proximal superficial femoral artery. Left superficial femoral arteriogram with runoff through the rest of the lower extremity was then performed. This demonstrated patency of the left superficial femoral artery without high-grade stenosis. Mild stenosis noted in the proximal left popliteal artery just past the adductor canal. Additional areas of minimal left popliteal stenosis seen. Left calf vessel trifurcation noted. The left anterior tibial artery demonstrates areas of mild to moderate stenosis, but nothing that appears to be flow-limiting in the calf or ankle. It is patent through the dorsalis pedis artery to the mid foot. The initial frontal view of the dorsalis pedis artery in the foot was concerning for a possible occlusion or even embolus based on the initial appearance, but immediate subsequent lateral view and repeat frontal view confirm that this was artifactual possibly related to endon projection or could have been positional with ankle flexion. In the mid foot there is an area of high-grade stenosis with several small collaterals seen filling the dorsal branches distal to this. Branches are seen extending to the great toe. The left posterior tibial artery becomes diminutive in the mid calf with only a small amount of flow seen at the region of the ankle. No clear distal reconstitution after the ankle is noted with the collateral circulation from the peroneal and dorsalis pedis artery collaterals. The left peroneal artery is patent through the ankle and provides collateral circulation to the plantar branches in the region of the heel. Additional plantar branch collateral circulation in the mid and distal foot from the dorsalis pedis collateral circulation. The left posterior tibial artery becomes diminutive in the mid calf with only a small amount of flow seen at the region of the ankle. No clear distal reconstitution after the ankle is noted with the collateral circulation from the peroneal and anterior tibial arteries as noted above. At this point, findings were discussed with Dr. Cooper who agreed that no intervention should be performed at this time. Dr. Simpson was not available to discuss case findings with the time of exam. Right common femoral arteriogram was then performed through the vascular sheath with a right lower extremity runoff. The right common femoral artery is patent without high-grade stenosis. The right profunda femoris artery is patent without high-grade stenosis. The right superficial femoral artery is patent without high-grade stenosis. The right popliteal artery is patent without high-grade stenosis. There is an area of severe focal stenosis in the proximal to mid right anterior tibial artery. A similar finding on the frontal view concerning for abrupt occlusion in the dorsalis pedis artery just past the ankle was seen, but this did not persist on lateral view and again may have been projectional or related to ankle flexion on the frontal view. The dorsalis pedis artery is patent through the distal foot. The right tibioperoneal trunk is patent without high-grade stenosis. The right posterior tibial artery is somewhat small but is patent through the level of the ankle. The proximal right peroneal artery demonstrates focal high-grade stenosis. It is patent through the level of the mid to lower calf. The patient tolerated the procedure well and was transferred to the recovery area in stable condition. No immediate complications were identified. Impression: 1. Normal tapering of the abdominal aorta without ectasia or stenosis. Widely patent bilateral iliac arterial systems. The bilateral common femoral and superficial femoral arteries are patent without high-grade stenosis. 2. Mild stenoses in the left popliteal artery which is not flow limiting. The left anterior tibial artery demonstrates areas of wolz-xw-qdqgraax stenosis which does not appear to be flow limiting. It is patent through the dorsalis pedis artery. There is an area of high-grade stenosis in the dorsalis pedis artery in the mid foot, but dorsalis pedis small collateral vessels are noted providing distal circulation with flow seen to the great toe. The left posterior tibial artery becomes diminutive in the mid calf with only a small amount of flow seen at the region of the ankle. No clear distal reconstitution after the ankle is noted with the collateral circulation from the peroneal and dorsalis pedis artery collaterals. The left peroneal artery is patent through the ankle and provides collateral circulation to the plantar branches in the region of the heel. 4. Focal severe stenosis in the proximal to mid right anterior tibial artery. It is otherwise patent through the dorsalis pedis artery to the distal foot. The right posterior tibial artery is somewhat small but is patent to the level of the ankle. The proximal right peroneal artery demonstrates focal high-grade stenosis. It is patent to the level of the mid to lower calf. Patient's great toe wound issue is on her left foot, but if patient does develop clinical issues with her right foot circulation, these findings could be treated on a later procedure.
--- NOTE | 2019-09-10 14:23 | NUR ---
Discharge Note: STANLEY TAN Discharge instructions and discharge home medications reviewed with Patient and a copy given. All questions have been answered and understanding verbalized. Patient ate lunch with no difficulties. The following instructions and handouts were given: Moderate sedation and groin site care. Discontinued lines and drains: right forearm PIV, dressing clean dry intact. Patient discharged to home with son via wheelchair to private vehicle.
== END 2019-09-10 14:00 | disposition home or self-care (01) ==
LOC: INTRAD 08:17
PROVIDERS: ATTEND Specialist
DX: I70.212 Atherosclerosis of native arteries of extremities with intermittent claudication, left leg (principal); E11.51 Type 2 diabetes mellitus with diabetic peripheral angiopathy without gangrene; Z98.890 Other specified postprocedural states; Z79.84 Long term (current) use of oral hypoglycemic drugs
CPT/HCPCS: 36247; 36415; 75625; 75716; 76937; 80048; 85025; 85610; C1760; C1769; C1892; C1894; J1644; J2250; J3010; J3490; Q9967; 36246; 99152; 99153; G0269

== ENCOUNTER → 2020-02-25 | Outpatient (CLI) | payer MEDICARE ==
[2019-09-10 13:35] VITALS: BP 119/59
[~2020-02-25] MED LIST changes: +AMLO-186 PO; +AMLO-187 PO; -AMLO10TA8 PO; -AMLO5TAB10 PO; +CALC200T3 PO; +FOLI0.8T32 PO
--- NOTE | 2020-02-25 10:00 | RAD ---
Ultrasound of the abdomen 02/25/2020 CLINICAL HISTORY: Splenic mass. TECHNIQUE: A real-time ultrasound examination of the abdomen was performed. Multiple images were obta ined. FINDINGS: Comparison is made to the patient's CT scan of the abdomen dated 05/23/2018. The gallbladder is not visualized consistent with a cholecystectomy. The common bile duct measures 9 mm in diameter which is within the limits of normal given the patient's cholecystectomy. The liver is normal in size measuring 14.8 cm in length. No focal abnormality of the liver is seen. The spleen is mildly enlarged measuring 13.7 cm in length. A well-defined oval-shaped anechoic structure is seen w ithin the spleen which measures 7.8 cm in greatest diameter. It has a partially calcified wall. It co rresponds to the abnormality seen on the patients CT scan. It likely represents a cyst. Both kidneys are normal in size. The right kidney measures 11.3 cm in length. The left kidney measure s 11.6 cm in length. Increased echogenicity of the cortex of both kidneys is seen suggestive of medic al renal disease. Multiple rounded anechoic structures are seen scattered throughout both kidneys con sistent with cysts. These measure 5 mm to 3.9 cm in size. There is no evidence of hydronephrosis. The visualized portions of pancreas is within normal limits. The abdominal aorta and inferior vena cava are not well visualized due to overlying bowel gas. No oralia e fluid is seen. IMPRESSION: 1. Post cholecystectomy. 2. 7.7 cm splenic cyst, unchanged. Electronically signed by: William Espino MD (02/25/2020 9:57 AM) [id number]
--- NOTE | 2020-02-25 17:00 | RAD ---
US THYROID: 02/25/2020 8:48 AM Indication: 69 years old Female. Thyroid nodule Comparison: Ultrasound thyroid 06/21/2018. TECHNIQUE: Sonographic evaluation of the thyroid gland was performed utilizing grayscale and color Do ppler imaging. FINDINGS: Right lobe: Normal in morphology and echotexture without significant hyperemia. Size: 4.6 x 1.5 x 2.0 cm Nodules: No significant nodules detected. Left lobe: Normal in morphology and echotexture without significant hyperemia. Size: 4.8 x 1.9 x 2.1 cm Nodules: 1. Mid to inferior posterior left thyroid lobe. Size: 2.6 x 1.7 x 1.7 cm, previously 1.9 x 1.7 x 1.4 Composition: Solid or almost completely solid (2 points) Echogenicity: Hyperechoic or isoechoic (1 point) Shape: Ufurv-asfj-uwvb (0 points) Margin: Smooth (0 points) Echogenic foci: None or large comet-tail artifacts (0 points) TI-RADS: TR3 Mildly suspicious- 3 points Isthmus: Unremarkable. IMPRESSION: 1. TI-RADS: Category 3, Mildly Suspicious. Fine needle aspiration if greater than or equal to 2.5 cm. Follow if greater than or equal to 1.5 cm. Interval growth is noted to 2.6 cm. Ultrasound-guided fin e-needle aspiration is recommended. Electronically signed by: Julianne Woo MD (02/25/2020 4:57 PM) [id number]
== END ==
LOC: US 09:05
PROVIDERS: ATTEND Internal Medicine Hematology & Oncology
DX: E04.1 Nontoxic single thyroid nodule (principal); R16.1 Splenomegaly, not elsewhere classified; D73.4 Cyst of spleen; Z90.49 Acquired absence of other specified parts of digestive tract
CPT/HCPCS: 76536; 76700

== ENCOUNTER 2021-02-08 10:11 | Inpatient (IN) | payer MEDICARE ==
[~2021-02-08] VITALS: Ht 160 cm; Wt 87.3 kg
[~2021-02-08 10:11] MED LIST changes: -CINA30TA2 PO; +CINA30TA24 PO; -LISI-334 PO; +LISI20TA18 PO
--- NOTE | 2021-02-08 10:23 | PHYS DOC ---
Past Medical History Past Medical History: Asthma, Diabetes-Type II, Glaucoma, High Cholesterol, Hypertension, Renal Failure (on HD (MWF)) Additional Past Medical Histor: obesity Past Surgical History: Cholecystectomy Additional Past Surgical Histo: Rt arm shunt, back, L arm shunt Smoking Status: Never Smoker Alcohol Use: None Drug Use: None General Adult EDM: Chief Complaint: CHEST PAIN HPI: HPI: Patient is a 70 year old female with history of HTN, HLD, DM, ESRD on HD (MWF) who presents with chest pain. Woke her from sleep at approximately 1 AM this morning. Described as dull. Does not radiate. Has been constant since onset. Is starting to improve, but has not completely gone away. She did not go to her dialysis session this morning. She has baseline shortness of breath and is on 3 L/min nasal cannula, this is unchanged. Has a chronic cough that is unchanged. Denies any lower extremity edema, or pain. Pain not worse with exertion. Slightly worse when she coughs. Denies fever or chills. No history of CAD. No history of similar chest pain. Review of Systems: Review of Systems: Constitutional: Denies fever or chills. [] Eyes: Denies change in visual acuity. [] HENT: Denies nasal congestion or sore throat. [] Respiratory: Reports chronic cough and shortness of breath [] Cardiovascular: Reports chest pain denies edema. GI: Denies abdominal pain, nausea, vomiting, bloody stools or diarrhea. [] : Denies dysuria. [] Musculoskeletal: Denies back pain or joint pain. [] Integument: Denies rash. [] Neurologic: Denies headache, focal weakness or sensory changes. [] Heart Score: C/O Chest Pain: Yes HEART Score for Chest Pain: HEART Score for Chest Pain Response (Comments) Value History Moderately Suspicious 1 ECG Normal 0 Age > 65 2 Risk Factors >3 Risk Factors or Hx CAD 2 Troponin >3 x Normal Limit 2 Total 7 Risk Factors: Risk Factors: DM, Current or recent (<one month) smoker, HTN, HLP, family history of CAD, obesity. Risk Scores: Score 0 - 3: 2.5% MACE over next 6 weeks - Discharge Home Score 4 - 6: 20.3% MACE over next 6 weeks - Admit for Clinical Observation Score 7 - 10: 72.7% MACE over next 6 weeks - Early Invasive Strategies Allergies: Allergies: Allergies Coded Allergies Type Severity Reaction Last Updated Verified latex Allergy Intermediate 02/21/19 Yes milk Allergy Intermediate 02/21/19 Yes Physical Exam: PE: Constitutional: Well developed, well nourished, no acute distress, non-toxic appearance. [] HENT: Normocephalic, atraumatic. Eyes: PERRLA, EOMI, conjunctiva normal, no discharge. [] Neck: Normal range of motion, no tenderness, supple, no stridor. [] Cardiovascular:Heart rate regular rhythm, no murmur [] Lungs & Thorax: Bilateral breath sounds clear to auscultation [] Abdomen: Bowel sounds normal, soft, no tenderness, no masses, no pulsatile mass es. [] Skin: Warm, dry, no erythema, no rash. [] Extremities: No tenderness, no cyanosis, no clubbing, ROM intact, no edema. [] Neurologic: Alert and oriented X 3, normal motor function, normal sensory function, no focal deficits noted. [] Psychologic: Affect normal, judgement normal, mood normal. [] EKG: EKG: Sinus rhythm. Rate 71. Normal intervals. Left axis deviation. Flattened ST s egments in aVL. No significant ST elevation or depression. No T wave inversions or pathologic Q waves [] Radiology/Procedures: Radiology/Procedures: [] Course & Med Decision Making: Course & Med Decision Making Pertinent Labs and Imaging studies reviewed. (See chart for details) Patient is 70-year-old female with history of ESRD, HTN, HLD, DM who presents with chest pain since 1 AM this morning. EKG nonischemic. No hypoxia, pleuritic chest pain, or shortness of breath to suggest PE. Will not pursue PE work-up. Troponin elevated 388 in the setting of her ESRD, this is difficult to interpret. We will follow with serial troponins. Cardiology consulted. Patient will be admitted for further chest pain evaluation. [id number] Disclaimer: Bairon Disclaimer: This electronic medical record was generated, in whole or in part, using a voice recognition dictation system. Departure Departure Impression: Primary Impression: Chest pain Additional Impression: End-stage renal disease on hemodialysis Disposition: ADMITTED INPATIENT Admitting Physician: Feliz La Condition: STABLE Referrals: FELIZ LA MD (PCP) PAT RYAN MD Feb 08, 2021 10:23
--- NOTE | 2021-02-08 10:42 | EKG ---
[facility] [address] [place] [address] Test Date: 2021-02-08 Test Time: 10:25:29 Pat Name: STANLEY TAN Department: Room: Gender: F Personal Banking Advisor: : 1950 Requested By: PAT RYAN Order Number: [id number] Reading MD: Miles Padilla Measurements Intervals [place] Rate: 75 P: NC: QRS: -3 QRSD: 82 T: 247 QT: 380 QTc: 427 Interpretive Statements UNDETERMINED RHYTHM NONSPECIFIC ST T WAVE CHANGES Electronically Signed On 02-08-2021 10:43:18 TURBINATED BONE GRINDER by Miles Padilla
--- NOTE | 2021-02-08 11:05 | EKG ---
[facility] [address] [place] [address] Test Date: 2021-02-08 Test Time: 10:58:11 Pat Name: STANLEY TAN Department: Room: Gender: F Clinical Trial Assistant: : 1950 Requested By: PAT RYAN Order Number: [id number] Reading MD: Bethel Neal MD Measurements Intervals [place] Rate: 71 P: 55 SC: 186 QRS: -9 QRSD: 78 T: 63 QT: 400 QTc: 435 Interpretive Statements SINUS RHYTHM Electronically Signed On 02-15-2021 12:00:12 TEST DEPARTMENT HELPER by Bethel Neal MD
--- NOTE | 2021-02-08 11:08 | RAD ---
XR CHEST 1V History: Chest pain, end-stage renal disease Comparison: 02/23/2018 Technique: Portable AP radiograph of the chest. Findings: The lungs are adequately inflated. There are diffuse hazy opacities with indistinct pulmonary vascula ture and cardiomegaly. No pleural effusion or pneumothorax is identified. Degenerative changes of the shoulders and spine. Soft tissues are unremarkable. Impression: 1. Findings most likely represent pulmonary edema, however multifocal infection is not excluded. Electronically signed by: Monico Voss MD (02/08/2021 11:05 AM) [facility]
[2021-02-08 11:44] LABS: BASO # 0.1 x10^3/uL (0.0-0.2); BASO % 1 % (0-3); EOS # 0.6 x10^3/uL (0.0-0.7); EOS % 11 % (0-3); HEMATOCRIT 30.6 % (36.0-47.0); HEMOGLOBIN 9.8 g/dL (12.0-15.5); LYMPH # 0.8 x10^3/uL (1.0-4.8); LYMPH % 14 % (24-48); MEAN CORPUSCULAR HEMOGLOBIN 29 pg (25-35); MEAN CORPUSCULAR HGB CONC 32 g/dL (31-37); MEAN CORPUSCULAR VOLUME 92 fL (79-100); MONO # 0.7 x10^3/uL (0.0-1.1); MONO % 11 % (0-9); NEUT # 3.7 x10^3/uL (1.8-7.7); NEUT % 63 % (31-73); PLATELET COUNT 200 x10^3/uL (140-400); RED BLOOD COUNT 3.33 x10^6/uL (3.50-5.40); RED CELL DISTRIBUTION WIDTH 14.8 % (11.5-14.5); WHITE BLOOD COUNT 5.9 x10^3/uL (4.0-11.0)
[2021-02-08 12:03] LABS: CALCIUM 8.8 mg/dL (8.5-10.1); CREATININE 10.5 mg/dL (0.6-1.0); GFR 4.4; POTASSIUM 4.3 mmol/L (3.5-5.1)
[2021-02-08 12:10] LABS: ALBUMIN 2.6 g/dL (3.4-5.0); ALBUMIN/GLOBULIN RATIO 0.7 (1.0-1.7); TOTAL BILIRUBIN 0.3 mg/dL (0.2-1.0); TOTAL PROTEIN 6.4 g/dL (6.4-8.2)
--- NOTE | 2021-02-08 13:02 | PDOC2 ---
GARLAND VILLALTA TELEPHONE BETTING CLERK 02/08/21 1302: CARDIAC CONSULT DATE OF CONSULT Date of Consult DATE: 02/08/21 TIME: 13:00 REASON FOR CONSULT Reason for Consult: Chest pain REFERRING PHYSICIAN Referring Physician: Dr. Summers SOURCE Source: Chart review, Patient HISTORY OF PRESENT ILLNESS HISTORY OF PRESENT ILLNESS This is a 70 yo female who presented secondary to chest pain. Troponin noted to be elevated, which prompted this consult. Patient reports pain began around 1 am this morning. Located in her central chest. Describes as nagging pain. Is worse with coughing. No associated dizziness, diaphoresis, palpitations, or shortness of breath. Pain does not radiated. Central chest is also tender upon palpation. No recent cardiac workup. [facility] 2016 without significant CAD. 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 PAST MEDICAL HISTORY Cardiovascular: CHF, HTN, Hyperlipidemia, Other (PAD ) Pulmonary: Asthma, COPD, Other (AMAN) GI: GERD Psych: Anxiety, Depression Musculoskeletal: Osteoarthritis Renal/: Chronic renal failure (ESRD on HD) Endocrine: Diabetes PAST SURGICAL HISTORY Past Surgical History: Cataract Removal, Tonsillectomy, Other (AV shunt ) FAMILY HISTORY Family History: Diabetes, Hypertension SOCIAL HISTORY Smoke: No ALCOHOL: none Drugs: None Lives: Alone ALLERGIES ALLERGIES: Coded Allergies: latex (Verified Allergy, Intermediate, 02/21/19) milk (Verified Allergy, Intermediate, 02/21/19) ROS Review of System 14 point ROS conducted with pertinent positives noted above in hPI PHYSICAL EXAM General: Alert, Oriented X3, Cooperative, No acute distress HEENT: Atraumatic Lungs: Clear to auscultation, Other (central chest tenderness upon palpation ) Heart: Regular rate Abdomen: Soft, No tenderness Extremities: No edema Skin: No significant lesion Neuro: Normal speech, Sensation intact Psych/Mental Status: Mental status NL, Mood NL MUSCULOSKELETAL: Osteoarthritic changes both hands VITALS/I&O VITALS/I&O: Vital Signs Date Time Temp Pulse Resp B/P (MAP) Pulse Ox O2 Delivery O2 Flow Rate FiO2 02/08/21 11:14 70 16 160/69 (99) 100 Nasal Cannula 2.0 02/08/21 10:11 98.0 98.0 LABS Lab: Laboratory Tests Test 02/08/21 11:30 White Blood Count 5.9 x10^3/uL (4.0-11.0) Red Blood Count 3.33 x10^6/uL (3.50-5.40) L Hemoglobin 9.8 g/dL (12.0-15.5) L Hematocrit 30.6 % (36.0-47.0) L Mean Corpuscular Volume 92 fL (79-100) Mean Corpuscular Hemoglobin 29 pg (25-35) Mean Corpuscular Hemoglobin Concent 32 g/dL (31-37) Red Cell Distribution Width 14.8 % (11.5-14.5) H Platelet Count 200 x10^3/uL (140-400) Neutrophils (%) (Auto) 63 % (31-73) Lymphocytes (%) (Auto) 14 % (24-48) L Monocytes (%) (Auto) 11 % (0-9) H Eosinophils (%) (Auto) 11 % (0-3) H Basophils (%) (Auto) 1 % (0-3) Neutrophils # (Auto) 3.7 x10^3/uL (1.8-7.7) Lymphocytes # (Auto) 0.8 x10^3/uL (1.0-4.8) L Monocytes # (Auto) 0.7 x10^3/uL (0.0-1.1) Eosinophils # (Auto) 0.6 x10^3/uL (0.0-0.7) Basophils # (Auto) 0.1 x10^3/uL (0.0-0.2) Sodium Level 140 mmol/L (136-145) Potassium Level 4.3 mmol/L (3.5-5.1) Chloride Level 103 mmol/L (98-107) Carbon Dioxide Level 23 mmol/L (21-32) Anion Gap 14 (6-14) Blood Urea Nitrogen 61 mg/dL (7-20) H Creatinine 10.5 mg/dL (0.6-1.0) H Estimated GFR (Cockcroft-Gault) 4.4 BUN/Creatinine Ratio 6 (6-20) Glucose Level 196 mg/dL (70-99) H Calcium Level 8.8 mg/dL (8.5-10.1) Total Bilirubin 0.3 mg/dL (0.2-1.0) Aspartate Amino Transferase (AST) 12 U/L (15-37) L Alanine Aminotransferase (ALT) 17 U/L (14-59) Alkaline Phosphatase 118 U/L (46-116) H Troponin I High Sensitivity 388 ng/L (4-50) H Total Protein 6.4 g/dL (6.4-8.2) Albumin 2.6 g/dL (3.4-5.0) L Albumin/Globulin Ratio 0.7 (1.0-1.7) L Laboratory Tests 02/08/21 11:30 Laboratory Tests 02/08/21 11:30 ECHOCARDIOGRAM ECHOCARDIOGRAM <Conclusion> There is borderline to mild concentric left ventricular hypertrophy. Left ventricle systolic function is normal. The Ejection Fraction is 55%. Tissue Doppler imaging reveals mild left ventricular diastolic dysfunction. The right ventricle is mildly dilated. The left atrium size is normal. The right atrium is mildly dilated. The aortic valve is mildly calcified but opens well. Doppler and Color-flow revealed mild mitral regurgitation. Doppler and Color Flow revealed mild tricuspid regurgitation. There is mild pulmonary hypertension. The PA pressure was estimated at 39 mmHg. The pulmonary valve is normal in structure and function. There is no evidence of significant pericardial effusion. DATE: 02/05/171445 HEART CATH HEART CATH Coronary Angiography The patient's coronary anatomy is right dominant. The left main coronary artery is a medium size vessel free of disease. The left main trifurcates to the left anterior descending, circumflex, and ramus. The left anterior descending artery is a medium size vessel free of disease. The first diagonal branch is a medium size vessel free of disease. The second diagonal branch is a small size vessel free of disease. The third diagonal branch is a small size vessel free of disease. The circumflex artery is a medium size vessel free of disease. The first obtuse marginal branch is a medium size vessel free of disease. The second obtuse marginal branch is a small size vessel free of disease. The third obtuse marginal branch is a small size vessel free of disease. The ramus intermedius artery is a small size vessel free of disease. The right coronary artery is a medium size vessel free of disease. The right posterior descending artery is a small size vessel free of disease. The right posterolateral branch is a small size vessel free of disease. Left Ventriculography The left ventricle is normal in size with normal contractility. The left ve ntricular ejection fraction is estimated to be 55%. The left ventricular end diastolic pressure is 16 mmHg. There was no gradient across the aortic valve upon pullback. Conclusion This patient does not have any significant coronary artery disease. Further workup and treatment as per Dr. Llanes. DATE: 04/15/152008 ASSESSMENT/PLAN ASSESSMENT/PLAN 1. Chest pain, atypical. EKG without significant acute changes 2. Mild troponin elevation; high sensitivity trop 388. Most probable type II, demand ischemia in setting of renal failure and hypertensive urgency. 3. ESRD on HD 4. Mild acute on chronic diastolic CHF 5. Hypertensive urgency 6. Hyperlipidemia 7. Diabetes, II 8. Anemia of chronic disease 9. AMAN Recommendations Trend trop Echo to assess LV systolic function ASA Lipids Resume home antiHTN therapy. Monitor trends and titrate therapy as warranted Hydralazine IV PRN Will need further ischemic evaluation given risk factors; most probable on an outpatient basis unless further significant elevation in troponin is noted Fluid offloading via HD Further pending above. QUINCY OMALLEY MD 02/08/21 1630: CARDIAC CONSULT ASSESSMENT/PLAN ASSESSMENT/PLAN Patient seen and examined. Agree with WELFARE INTERVIEWER's assessment and plan. Chest pain with mixed features. Initial troponin level elevated, most probably demand ischemia. We will continue to monitor serial cardiac enzymes and consider cardiac catheterization if they trend upwards Agree with 2D echocardiogram to assess LV systolic function and rule out wall motion abnormalities Resume home antihypertensives and titrate for better blood pressure control Continue hemodialysis per nephrology team Thank you for your consultation GARLAND VILLALTA APRN Feb 08, 2021 13:02 QUINCY OMALLEY MD Feb 08, 2021 16:30
[2021-02-08] MEDS: ASPIRIN ENTERIC COATED 81 MG TABLET.DR. PO SCH (13:55)
[2021-02-08] MEDS ORDERED: hydrALAZINE 20 MG/ML VIAL. IVP PRN (14:15)
--- NOTE | 2021-02-08 16:57 | PDOC ---
Provider Note Date of Service: DATE: 02/08/21 TIME: 16:56 Provider Note history and physical dictated # [id number] Justifications for Admission Other Justification DIVINA BRIGGS MD Feb 08, 2021 16:57
[2021-02-08] MEDS ORDERED: ASPIRIN CHEWABLE 81 MG TABLET. PO SCH (17:00)
[2021-02-08] MEDS ORDERED: ACETAMINOPHEN 325 MG TABLET. PO PRN (17:00)
[2021-02-08] MEDS: CARVEDILOL 12.5 MG TABLET. PO SCH (17:29)
[2021-02-08] MEDS: SEVELAMER CARBONATE 800 MG TABLET. PO SCH (17:29)
[2021-02-08] MEDS: HEPARIN for SUB-Q USE 5,000 UNIT/ML VIAL. SQ SCH ×2 (17:31→23:25)
[2021-02-08] MEDS: INSULIN LISPRO 300 UNITS/3 ML VIAL. SQ SCH (17:32)
[2021-02-08 19:00] VITALS: BP 135/70
--- NOTE | 2021-02-08 19:05 | NUR ---
Pt arrived to room 669 per cart, pt assisted to bed with standby assist. quality assurance monitor final applied vs obtained and stable. Pt without c/o pain but c/o sob and nonproductive cough.assessment completed poc explained to pt call light placed in reach will resume care and continue to monitor pt.
[2021-02-08] MEDS ORDERED: ATORVASTATIN CALCIUM 10 MG TABLET. PO SCH (21:00)
[2021-02-08 22:56] VITALS: BP 139/55
--- NOTE | 2021-02-09 00:18 | HP ---
DATE OF SERVICE: 02/08/2021 ADMIT DATE: 02/08/2021 LOCATION: She is in Emergency Room, room #15, waiting for a bed. HISTORY OF PRESENT ILLNESS: The patient is a 70-year-old -[place] female with history of end-stage renal disease, on hemodialysis Mondays, Wednesdays and Fridays, followed by Dr. Perkins with hypertension, hyperlipidemia and diabetes mellitus type 2, who has a history of chronic obstructive pulmonary disease, obstructive sleep apnea, anemia of chronic disease, noted the onset of chest discomfort around 1:00 in the morning, which did not radiate. There was some shortness of breath. The pain was worse with inspiration and it was also worse to palpation. It started at 1:00 in the morning was 8/10 in intensity at bedtime, came to the emergency room, it was less and currently it is 1/10 in intensity. She is admitted for further evaluation of her chest discomfort. ALLERGIES AND INTOLERANCES: TO LATEX AND MILK. MEDICATIONS: Include albuterol inhaler p.r.n., aspirin 81 mg every day, carvedilol 12.5 mg b.i.d., DuoNeb nebulizer treatments every 4 hours, NovoLog sliding scale, which is a low sliding scale before meals t.i.d., pravastatin 80 mg every day, Renvela 800 mg 2 tablets t.i.d. with meals, Sensipar 60 mg every day and Symbicort 160/4.5 two puffs b.i.d. p.r.n. PAST MEDICAL HISTORY: Significant for diabetes mellitus type 2, hypertension, hyperlipidemia and chronic obstructive pulmonary disease, end-stage renal disease on hemodialysis, glaucoma, morbid obesity, obstructive sleep apnea and treated with CPAP. She had a cardiac catheterization in 04/2015 that was normal. She had an open reduction and internal fixation for right ankle fracture, cataract extraction, benign right breast biopsy and laser therapy to evaluate. She will be noted that she was not dialyzed today. SOCIAL HISTORY: She does not drink alcohol nor she smoke cigarettes. FAMILY HISTORY: Noncontributory. REVIEW OF SYSTEMS: CONSTITUTIONAL: She denies any fever, chills or sweats in the last 3 days. CARDIOVASCULAR: She had chest pain. PULMONARY: No cough. She has some shortness of breath earlier with no chest pain. ENDOCRINE: She has diabetes mellitus. SKIN: No rashes. Rest of review of systems reviewed are negative except as stated in history of present illness. PHYSICAL EXAMINATION: VITAL SIGNS: Temperature was 98 degrees. Heart rate is 71 and regular, respiratory rate 16, blood pressure 161/67, oxygen saturation 98% on 2 liters per nasal cannula. HEENT: Eyes: Gaze is conjugate. Mouth: Tongue is midline. NECK: There is no cervical lymphadenopathy or thyroid enlargement. CARDIAC: Reveals an S1, S2. There is no S3 or murmur. LUNGS: Clear posteriorly. ABDOMEN: Soft, nontender. EXTREMITIES: Left upper extremity has got an AV shunt and the pulses palpable. Lower extremities without edema. SKIN: No rashes. NEUROLOGIC: She is coherent with no focal weakness in arms or legs. LABORATORY DATA: White count was 5.9, hemoglobin 9.8 with a platelet count 200,000, 63 polys and 14 lymphocytes. Sodium 140, potassium 4.3, total CO2 is 23, blood sugar 196. Liver function tests were normal. Troponin high sensitivity was 388. Albumin 2.6. Electrocardiogram showed undetermined rhythm with nonspecific ST-T wave changes. She had a chest x-ray done, which showed possibly pulmonary edema. ASSESSMENT: 1. ____. 2. End-stage renal disease, on hemodialysis. 3. Acute on chronic diastolic congestive heart failure, most likely secondary to fluid overload and missing hemodialysis today. 4. Hypertension. 5. Hyperlipidemia. 6. Chronic obstructive pulmonary disease. 7. Obstructive sleep apnea. 8. Anemia of chronic disease. 9. Diabetes mellitus type 2. 10. Severe protein calorie malnutrition. PLAN: At this time is to obtain an echocardiogram. She has already been seen by the print binding worker. We will resume her aspirin. Continue with her home blood pressure medications and she will be dialyzed. We will consult Dr. Perkins from Nephrology and she got dialyzed and do serial cardiac enzymes. We will put her on a renal diet and also a diabetic diet and check her blood sugars, put her on insulin sliding scale also and put her on some heparin for DVT prophylaxis also. ZAUCENA/CORTES/JUICE DR: Bart TID: [id number]
[2021-02-09] MEDS ORDERED: CINA90TA4 PO (01:21)
[2021-02-09] MEDS ORDERED: BUDE10.2 IH (01:21)
[2021-02-09] MEDS ORDERED: CALC500T31 PO (01:21)
[2021-02-09 02:45] VITALS: BP 131/87
[2021-02-09 05:09] LABS: BASO % 1 % (0-3); EOS # 0.6 x10^3/uL (0.0-0.7); EOS % 10 % (0-3); HEMATOCRIT 29.3 % (36.0-47.0); HEMOGLOBIN 9.5 g/dL (12.0-15.5); LYMPH # 0.8 x10^3/uL (1.0-4.8); LYMPH % 14 % (24-48); MEAN CORPUSCULAR HEMOGLOBIN 29 pg (25-35); MEAN CORPUSCULAR HGB CONC 32 g/dL (31-37); MEAN CORPUSCULAR VOLUME 91 fL (79-100); MONO # 0.6 x10^3/uL (0.0-1.1); MONO % 10 % (0-9); NEUT # 3.8 x10^3/uL (1.8-7.7); NEUT % 65 % (31-73); PLATELET COUNT 190 x10^3/uL (140-400); RED BLOOD COUNT 3.24 x10^6/uL (3.50-5.40); RED CELL DISTRIBUTION WIDTH 14.6 % (11.5-14.5); WHITE BLOOD COUNT 5.9 x10^3/uL (4.0-11.0)
[2021-02-09 05:25] LABS: CALCIUM 8.8 mg/dL (8.5-10.1); CREATININE 11.3 mg/dL (0.6-1.0); GFR 4.1
[2021-02-09] MEDS: HEPARIN for SUB-Q USE 5,000 UNIT/ML VIAL. SQ SCH ×3 (05:54→21:37)
[2021-02-09 07:36] VITALS: BP 144/60
[2021-02-09] MEDS: CARVEDILOL 12.5 MG TABLET. PO SCH ×2 (08:00→17:00)
[2021-02-09] MEDS: SEVELAMER CARBONATE 800 MG TABLET. PO SCH ×3 (08:00→17:00)
[2021-02-09] MEDS: ASPIRIN ENTERIC COATED 81 MG TABLET.DR. PO SCH (08:00)
[2021-02-09] MEDS: INSULIN LISPRO 300 UNITS/3 ML VIAL. SQ SCH ×3 (08:00→17:00)
--- NOTE | 2021-02-09 08:33 | PDOC ---
CARDIO Progress Notes Vitals Vitals Vital Signs Date Time Temp Pulse Resp B/P (MAP) Pulse Ox O2 Delivery O2 Flow Rate FiO2 02/09/21 07:36 98.3 63 16 144/60 (88) 100 Nasal Cannula 2.0 98.3 Weight Weight [ ] Input and Output Intake and Output Intake and Output 02/09/21 07:00 Intake Total 100 ml Balance 100 ml Intake Oral 100 ml Laboratory Labs Laboratory Tests Test 02/08/21 11:30 02/08/21 17:18 02/08/21 20:25 02/08/21 20:55 White Blood Count 5.9 x10^3/uL (4.0-11.0) Red Blood Count 3.33 x10^6/uL (3.50-5.40) Hemoglobin 9.8 g/dL (12.0-15.5) Hematocrit 30.6 % (36.0-47.0) Mean Corpuscular Volume 92 fL (79-100) Mean Corpuscular Hemoglobin 29 pg (25-35) Mean Corpuscular Hemoglobin Concent 32 g/dL (31-37) Red Cell Distribution Width 14.8 % (11.5-14.5) Platelet Count 200 x10^3/uL (140-400) Neutrophils (%) (Auto) 63 % (31-73) Lymphocytes (%) (Auto) 14 % (24-48) Monocytes (%) (Auto) 11 % (0-9) Eosinophils (%) (Auto) 11 % (0-3) Basophils (%) (Auto) 1 % (0-3) Neutrophils # (Auto) 3.7 x10^3/uL (1.8-7.7) Lymphocytes # (Auto) 0.8 x10^3/uL (1.0-4.8) Monocytes # (Auto) 0.7 x10^3/uL (0.0-1.1) Eosinophils # (Auto) 0.6 x10^3/uL (0.0-0.7) Basophils # (Auto) 0.1 x10^3/uL (0.0-0.2) Sodium Level 140 mmol/L (136-145) Potassium Level 4.3 mmol/L (3.5-5.1) Chloride Level 103 mmol/L (98-107) Carbon Dioxide Level 23 mmol/L (21-32) Anion Gap 14 (6-14) Blood Urea Nitrogen 61 mg/dL (7-20) Creatinine 10.5 mg/dL (0.6-1.0) Estimated GFR (Cockcroft-Gault) 4.4 BUN/Creatinine Ratio 6 (6-20) Glucose Level 196 mg/dL (70-99) Calcium Level 8.8 mg/dL (8.5-10.1) Total Bilirubin 0.3 mg/dL (0.2-1.0) Aspartate Amino Transf (AST/SGOT) 12 U/L (15-37) Alanine Aminotransferase (ALT/SGPT) 17 U/L (14-59) Alkaline Phosphatase 118 U/L (46-116) Troponin I High Sensitivity 388 ng/L (4-50) 778 ng/L (4-50) Total Protein 6.4 g/dL (6.4-8.2) Albumin 2.6 g/dL (3.4-5.0) Albumin/Globulin Ratio 0.7 (1.0-1.7) Glucose (Fingerstick) 161 mg/dL (70-99) 151 mg/dL (70-99) Test 02/08/21 23:25 02/09/21 04:00 02/09/21 04:50 02/09/21 07:40 Troponin I High Sensitivity 790 ng/L (4-50) White Blood Count 5.9 x10^3/uL (4.0-11.0) Red Blood Count 3.24 x10^6/uL (3.50-5.40) Hemoglobin 9.5 g/dL (12.0-15.5) Hematocrit 29.3 % (36.0-47.0) Mean Corpuscular Volume 91 fL (79-100) Mean Corpuscular Hemoglobin 29 pg (25-35) Mean Corpuscular Hemoglobin Concent 32 g/dL (31-37) Red Cell Distribution Width 14.6 % (11.5-14.5) Platelet Count 190 x10^3/uL (140-400) Neutrophils (%) (Auto) 65 % (31-73) Lymphocytes (%) (Auto) 14 % (24-48) Monocytes (%) (Auto) 10 % (0-9) Eosinophils (%) (Auto) 10 % (0-3) Basophils (%) (Auto) 1 % (0-3) Neutrophils # (Auto) 3.8 x10^3/uL (1.8-7.7) Lymphocytes # (Auto) 0.8 x10^3/uL (1.0-4.8) Monocytes # (Auto) 0.6 x10^3/uL (0.0-1.1) Eosinophils # (Auto) 0.6 x10^3/uL (0.0-0.7) Basophils # (Auto) 0.0 x10^3/uL (0.0-0.2) Sodium Level 141 mmol/L (136-145) Potassium Level 5.0 mmol/L (3.5-5.1) Chloride Level 102 mmol/L (98-107) Carbon Dioxide Level 30 mmol/L (21-32) Anion Gap 9 (6-14) Blood Urea Nitrogen 65 mg/dL (7-20) Creatinine 11.3 mg/dL (0.6-1.0) Estimated GFR (Cockcroft-Gault) 4.1 Glucose Level 133 mg/dL (70-99) Calcium Level 8.8 mg/dL (8.5-10.1) Glucose (Fingerstick) 115 mg/dL (70-99) GARLAND VILLALTA APRN Feb 09, 2021 08:33
[2021-02-09] MEDS: CINACALCET HCL 30 MG TABLET PO SCH (09:00)
[2021-02-09 09:06] LABS: CHOLESTEROL/HDL RATIO 4.5
--- NOTE | 2021-02-09 09:19 | PDOC ---
Provider Note Date of Service: DATE: 02/09/21 TIME: 09:18 Provider Note Pt with NSTEMI.. Discussed LHC, risks and benefits discussed and agreeable to proceed. Justifications for Admission Other Justification MICHELLE HUGHES LEAD MINER BLASTING Feb 09, 2021 09:19
--- NOTE | 2021-02-09 10:03 | PDOC ---
PROGRESS NOTES Date of Service DATE: 02/09/21 TIME: 10:00 Subjective Subjective chest pain resolved last night. troponin level increased. cardiology to do cardiac cath later today followed by dialysis. lab reviewed. Objective Objective Vital Signs Date Time Temp Pulse Resp B/P (MAP) Pulse Ox O2 Delivery O2 Flow Rate FiO2 02/09/21 07:36 98.3 63 16 144/60 (88) 100 Nasal Cannula 2.0 98.3 Intake and Output 02/09/21 07:00 Intake Total 100 ml Balance 100 ml Intake Oral 100 ml Physical Exam Abdomen: Soft Heart: Regular rate, Normal S1, Normal S2 Extremities: No edema General: Alert HEENT: Atraumatic Lungs: Clear to auscultation Neuro: Normal speech Psych/Mental Status: Mental status NL Skin: No rashes Assessment Assessment Problems1. NSTEMI____. 2. End-stage renal disease, on hemodialysis.M-W-F 3. Acute on chronic diastolic congestive heart failure, most likely secondary to fluid overload and missed dialysis 02/08 due to chest pain. 4. Hypertension. 5. Hyperlipidemia. 6. Chronic obstructive pulmonary disease. 7. Obstructive sleep apnea. 8. Anemia of chronic disease. 9. Diabetes mellitus type 2. 10. Severe protein calorie malnutrition. Medical Problems: (1) Chest pain Status: Acute (2) End-stage renal disease on hemodialysis Status: Acute Plan Plan of Care cardiac cath today followed by hemodialysis takes pravastatin at home continue current meds Comment Review of Relevant I have reviewed the following items jorge (where applicable) has been applied. Labs Laboratory Tests Test 02/08/21 11:30 02/08/21 17:18 02/08/21 20:25 02/08/21 20:55 White Blood Count 5.9 x10^3/uL (4.0-11.0) Red Blood Count 3.33 x10^6/uL (3.50-5.40) Hemoglobin 9.8 g/dL (12.0-15.5) Hematocrit 30.6 % (36.0-47.0) Mean Corpuscular Volume 92 fL (79-100) Mean Corpuscular Hemoglobin 29 pg (25-35) Mean Corpuscular Hemoglobin Concent 32 g/dL (31-37) Red Cell Distribution Width 14.8 % (11.5-14.5) Platelet Count 200 x10^3/uL (140-400) Neutrophils (%) (Auto) 63 % (31-73) Lymphocytes (%) (Auto) 14 % (24-48) Monocytes (%) (Auto) 11 % (0-9) Eosinophils (%) (Auto) 11 % (0-3) Basophils (%) (Auto) 1 % (0-3) Neutrophils # (Auto) 3.7 x10^3/uL (1.8-7.7) Lymphocytes # (Auto) 0.8 x10^3/uL (1.0-4.8) Monocytes # (Auto) 0.7 x10^3/uL (0.0-1.1) Eosinophils # (Auto) 0.6 x10^3/uL (0.0-0.7) Basophils # (Auto) 0.1 x10^3/uL (0.0-0.2) Sodium Level 140 mmol/L (136-145) Potassium Level 4.3 mmol/L (3.5-5.1) Chloride Level 103 mmol/L (98-107) Carbon Dioxide Level 23 mmol/L (21-32) Anion Gap 14 (6-14) Blood Urea Nitrogen 61 mg/dL (7-20) Creatinine 10.5 mg/dL (0.6-1.0) Estimated GFR (Cockcroft-Gault) 4.4 BUN/Creatinine Ratio 6 (6-20) Glucose Level 196 mg/dL (70-99) Calcium Level 8.8 mg/dL (8.5-10.1) Total Bilirubin 0.3 mg/dL (0.2-1.0) Aspartate Amino Transf (AST/SGOT) 12 U/L (15-37) Alanine Aminotransferase (ALT/SGPT) 17 U/L (14-59) Alkaline Phosphatase 118 U/L (46-116) Troponin I High Sensitivity 388 ng/L (4-50) 778 ng/L (4-50) Total Protein 6.4 g/dL (6.4-8.2) Albumin 2.6 g/dL (3.4-5.0) Albumin/Globulin Ratio 0.7 (1.0-1.7) Glucose (Fingerstick) 161 mg/dL (70-99) 151 mg/dL (70-99) Test 02/08/21 23:25 02/09/21 04:00 02/09/21 04:50 02/09/21 07:40 Troponin I High Sensitivity 790 ng/L (4-50) 690 ng/L (4-50) White Blood Count 5.9 x10^3/uL (4.0-11.0) Red Blood Count 3.24 x10^6/uL (3.50-5.40) Hemoglobin 9.5 g/dL (12.0-15.5) Hematocrit 29.3 % (36.0-47.0) Mean Corpuscular Volume 91 fL (79-100) Mean Corpuscular Hemoglobin 29 pg (25-35) Mean Corpuscular Hemoglobin Concent 32 g/dL (31-37) Red Cell Distribution Width 14.6 % (11.5-14.5) Platelet Count 190 x10^3/uL (140-400) Neutrophils (%) (Auto) 65 % (31-73) Lymphocytes (%) (Auto) 14 % (24-48) Monocytes (%) (Auto) 10 % (0-9) Eosinophils (%) (Auto) 10 % (0-3) Basophils (%) (Auto) 1 % (0-3) Neutrophils # (Auto) 3.8 x10^3/uL (1.8-7.7) Lymphocytes # (Auto) 0.8 x10^3/uL (1.0-4.8) Monocytes # (Auto) 0.6 x10^3/uL (0.0-1.1) Eosinophils # (Auto) 0.6 x10^3/uL (0.0-0.7) Basophils # (Auto) 0.0 x10^3/uL (0.0-0.2) Sodium Level 141 mmol/L (136-145) Potassium Level 5.0 mmol/L (3.5-5.1) Chloride Level 102 mmol/L (98-107) Carbon Dioxide Level 30 mmol/L (21-32) Anion Gap 9 (6-14) Blood Urea Nitrogen 65 mg/dL (7-20) Creatinine 11.3 mg/dL (0.6-1.0) Estimated GFR (Cockcroft-Gault) 4.1 Glucose Level 133 mg/dL (70-99) Calcium Level 8.8 mg/dL (8.5-10.1) Triglycerides Level 72 mg/dL (0-150) Cholesterol Level 193 mg/dL (0-200) LDL Cholesterol, Calculated 136 mg/dL (0-100) VLDL Cholesterol, Calculated 14 mg/dL (0-40) Non-HDL Cholesterol Calculated 150 mg/dL (0-129) HDL Cholesterol 43 mg/dL (40-60) Cholesterol/HDL Ratio 4.5 Thyroid Stimulating Hormone (TSH) 2.013 uIU/mL (0.358-3.74) Glucose (Fingerstick) 115 mg/dL (70-99) Laboratory Tests Test 02/08/21 11:30 02/08/21 17:18 02/08/21 20:25 02/08/21 20:55 White Blood Count 5.9 x10^3/uL (4.0-11.0) Red Blood Count 3.33 x10^6/uL (3.50-5.40) Hemoglobin 9.8 g/dL (12.0-15.5) Hematocrit 30.6 % (36.0-47.0) Mean Corpuscular Volume 92 fL (79-100) Mean Corpuscular Hemoglobin 29 pg (25-35) Mean Corpuscular Hemoglobin Concent 32 g/dL (31-37) Red Cell Distribution Width 14.8 % (11.5-14.5) Platelet Count 200 x10^3/uL (140-400) Neutrophils (%) (Auto) 63 % (31-73) Lymphocytes (%) (Auto) 14 % (24-48) Monocytes (%) (Auto) 11 % (0-9) Eosinophils (%) (Auto) 11 % (0-3) Basophils (%) (Auto) 1 % (0-3) Neutrophils # (Auto) 3.7 x10^3/uL (1.8-7.7) Lymphocytes # (Auto) 0.8 x10^3/uL (1.0-4.8) Monocytes # (Auto) 0.7 x10^3/uL (0.0-1.1) Eosinophils # (Auto) 0.6 x10^3/uL (0.0-0.7) Basophils # (Auto) 0.1 x10^3/uL (0.0-0.2) Sodium Level 140 mmol/L (136-145) Potassium Level 4.3 mmol/L (3.5-5.1) Chloride Level 103 mmol/L (98-107) Carbon Dioxide Level 23 mmol/L (21-32) Anion Gap 14 (6-14) Blood Urea Nitrogen 61 mg/dL (7-20) Creatinine 10.5 mg/dL (0.6-1.0) Estimated GFR (Cockcroft-Gault) 4.4 BUN/Creatinine Ratio 6 (6-20) Glucose Level 196 mg/dL (70-99) Calcium Level 8.8 mg/dL (8.5-10.1) Total Bilirubin 0.3 mg/dL (0.2-1.0) Aspartate Amino Transf (AST/SGOT) 12 U/L (15-37) Alanine Aminotransferase (ALT/SGPT) 17 U/L (14-59) Alkaline Phosphatase 118 U/L (46-116) Troponin I High Sensitivity 388 ng/L (4-50) 778 ng/L (4-50) Total Protein 6.4 g/dL (6.4-8.2) Albumin 2.6 g/dL (3.4-5.0) Albumin/Globulin Ratio 0.7 (1.0-1.7) Glucose (Fingerstick) 161 mg/dL (70-99) 151 mg/dL (70-99) Test 02/08/21 23:25 02/09/21 04:00 02/09/21 04:50 02/09/21 07:40 Troponin I High Sensitivity 790 ng/L (4-50) 690 ng/L (4-50) White Blood Count 5.9 x10^3/uL (4.0-11.0) Red Blood Count 3.24 x10^6/uL (3.50-5.40) Hemoglobin 9.5 g/dL (12.0-15.5) Hematocrit 29.3 % (36.0-47.0) Mean Corpuscular Volume 91 fL (79-100) Mean Corpuscular Hemoglobin 29 pg (25-35) Mean Corpuscular Hemoglobin Concent 32 g/dL (31-37) Red Cell Distribution Width 14.6 % (11.5-14.5) Platelet Count 190 x10^3/uL (140-400) Neutrophils (%) (Auto) 65 % (31-73) Lymphocytes (%) (Auto) 14 % (24-48) Monocytes (%) (Auto) 10 % (0-9) Eosinophils (%) (Auto) 10 % (0-3) Basophils (%) (Auto) 1 % (0-3) Neutrophils # (Auto) 3.8 x10^3/uL (1.8-7.7) Lymphocytes # (Auto) 0.8 x10^3/uL (1.0-4.8) Monocytes # (Auto) 0.6 x10^3/uL (0.0-1.1) Eosinophils # (Auto) 0.6 x10^3/uL (0.0-0.7) Basophils # (Auto) 0.0 x10^3/uL (0.0-0.2) Sodium Level 141 mmol/L (136-145) Potassium Level 5.0 mmol/L (3.5-5.1) Chloride Level 102 mmol/L (98-107) Carbon Dioxide Level 30 mmol/L (21-32) Anion Gap 9 (6-14) Blood Urea Nitrogen 65 mg/dL (7-20) Creatinine 11.3 mg/dL (0.6-1.0) Estimated GFR (Cockcroft-Gault) 4.1 Glucose Level 133 mg/dL (70-99) Calcium Level 8.8 mg/dL (8.5-10.1) Triglycerides Level 72 mg/dL (0-150) Cholesterol Level 193 mg/dL (0-200) LDL Cholesterol, Calculated 136 mg/dL (0-100) VLDL Cholesterol, Calculated 14 mg/dL (0-40) Non-HDL Cholesterol Calculated 150 mg/dL (0-129) HDL Cholesterol 43 mg/dL (40-60) Cholesterol/HDL Ratio 4.5 Thyroid Stimulating Hormone (TSH) 2.013 uIU/mL (0.358-3.74) Glucose (Fingerstick) 115 mg/dL (70-99) Medications Current Medications Aspirin (Ecotrin) 81 mg DAILYWBKFT PO Last administered on 02/08/21at 13:55; Start 02/08/21 at 14:00 Hydralazine HCl (Apresoline Inj) 10 mg PRN Q4HRS PRN IVP ELEVATED BP, SEE COMMENTS; Start 02/08/21 at 14:15 Carvedilol (Coreg) 25 mg BIDWMEALS PO Last administered on 02/08/21at 17:29; Start 02/08/21 at 17:00 Atorvastatin Calcium (Lipitor) 10 mg QHS PO Last administered on 02/08/21at 20:52; Start 02/08/21 at 21:00 Aspirin (Aspirin Chewable) 81 mg DAILYWBKFT PO Last administered on 02/08/21at 17:29; Start 02/08/21 at 17:00 Insulin Human Lispro (HumaLOG) 0-6 UNITS BG 300-39... TIDWMEALS SQ Last administered on 02/08/21at 17:32; Start 02/08/21 at 17:00 Heparin Sodium (Porcine) (Heparin Sodium) 5,000 unit Q8HRS SQ Last administered on 02/09/21at 05:54; Start 02/08/21 at 17:15 Sevelamer Carbonate (Renvela) 1,600 mg TIDWMEALS PO Last administered on 02/08/21at 17:29; Start 02/08/21 at 17:00 Cinacalcet (Sensipar) 60 mg DAILY PO ; Start 02/09/21 at 09:00 Acetaminophen (Tylenol) 650 mg PRN Q6HRS PRN PO MILD PAIN / TEMP > 100.3'F; Start 02/08/21 at 17:00 Active Scripts Active Pravastatin Sodium 40 Mg Tablet 1 Tab PO QHS Carvedilol 25 Mg Tablet 25 Mg PO BIDWMEALS 30 Days Reported Symbicort 160-4.5 Mcg Inhaler (Budesonide/Formoterol Fumarate) 10.2 Gm Hfa.aer.ad 2 Puff IH BID Cinacalcet HCl 90 Mg Tablet 90 Mg PO DAILY Calcium Carbonate 500 Mg Tablet 3 Tab PO TIDWMEALS 30 Days Renal-Johnny Tablet (Folic Acid/Vit Bcomp,C) 0.8 Mg Tablet 1 Tab PO DAILY 30 Days Alphagan P (Brimonidine Tartrate) 5 Ml Drops 1 Drop OD BID Proair Hfa Inhaler (Albuterol Sulfate) 8.5 Gm Hfa.aer.ad 2 Puff IH PRN Q4-6HRS Cosopt Eye Drops (Dorzolamide Hcl/Timolol Maleat) 10 Ml Drops 1 Drop EACHEYE BID Aspirin 81 Mg Tab.chew 81 Mg PO DAILY Vitals/I & O Vital Sign - Last 24 Hours 02/08/21 02/08/21 02/08/21 02/08/21 10:11 10:44 11:14 11:44 Temp 98.0 98.0 Pulse 79 76 70 70 Resp 20 27 16 12 B/P (MAP) 213/94 (133) 155/68 (97) 160/69 (99) 165/69 (101) Pulse Ox 100 98 100 100 O2 Delivery Nasal Cannula Nasal Cannula Nasal Cannula Nasal Cannula O2 Flow Rate 2.0 2.0 2.0 2.0 02/08/21 02/08/21 02/08/21 02/08/21 12:14 12:44 13:14 13:44 Pulse 68 76 74 66 Resp 16 14 B/P (MAP) 172/70 (104) 161/70 (100) 175/76 (109) 169/67 (101) Pulse Ox 100 99 99 100 O2 Delivery Nasal Cannula Nasal Cannula Nasal Cannula Nasal Cannula O2 Flow Rate 2.0 2.0 2.0 2.0 02/08/21 02/08/21 02/08/21 02/08/21 14:14 14:44 15:14 15:44 Pulse 66 68 69 75 Resp 10 17 17 17 B/P (MAP) 158/64 (95) 150/63 (92) 163/72 (102) 189/76 (113) Pulse Ox 98 99 99 99 O2 Delivery Nasal Cannula Nasal Cannula Nasal Cannula Nasal Cannula O2 Flow Rate 2.0 2.0 2.0 2.0 02/08/21 02/08/21 02/08/21 02/08/21 16:14 17:14 17:29 18:14 Pulse 71 78 76 82 Resp 16 21 B/P (MAP) 161/67 (98) 160/70 (100) 160/70 162/68 (99) Pulse Ox 98 95 99 O2 Delivery Nasal Cannula Nasal Cannula Nasal Cannula O2 Flow Rate 2.0 2.0 2.0 02/08/21 02/08/21 02/09/21 02/09/21 19:00 22:56 02:45 07:36 Temp 98.2 97.6 97.8 98.3 98.2 97.6 97.8 98.3 Pulse 74 72 65 63 Resp 18 18 16 16 B/P (MAP) 135/70 (91) 139/55 (83) 131/87 (102) 144/60 (88) Pulse Ox 96 97 99 100 O2 Delivery Nasal Cannula Nasal Cannula Nasal Cannula Nasal Cannula O2 Flow Rate 2.0 2.0 2.0 2.0 Intake and Output 02/08/21 02/08/21 02/09/21 15:00 23:00 07:00 Intake Total 100 ml 0 ml Balance 100 ml 0 ml Justifications for Admission Other Justification DIVINA BRIGGS MD Feb 09, 2021 10:03
[2021-02-09 10:58] VITALS: BP 140/82
--- NOTE | 2021-02-09 11:43 | PDOC2 ---
CONSULT Date of Consult Date of Consult DATE: 02/09/21 TIME: 11:39 Reason for Consult Reason for Consult: ESRD Referring Physician Referring Physician: BRIGITTE Identification/Chief Complaint Chief Complaint SOB Source Source: Chart review, Patient History of Present Illness Reason for Visit: THIS IS A 70 YR OLD WITH ESRD. HAS OP HD ON MWF. MISSED HER TX YESTERDAY. CAME IN WITH CHEST PAIN AND SOME SOB. UNDERGOING CARDIOLOGY EVAL FOR NSTEMI. HEART CATH PLANNED FOR TODAY. HAS A RIGHT FA LOOP [employer] FOR HER DIALYSIS ACCESS. ESRD IS DUE TO HTN AND DM II. Past Medical History Cardiovascular: CHF, HTN, Hyperlipidemia, Other (PAD ) Pulmonary: Asthma, COPD, Other (AMAN) CENTRAL NERVOUS SYSTEM: Periperal neuropathy, TIA GI: GERD Heme/Onc: Anemia NOS Hepatobiliary: No pertinent hx Psych: Anxiety, Depression Musculoskeletal: Osteoarthritis Rheumatologic: No pertinent hx Infectious disease: No pertinent hx Renal/: Chronic renal failure (ESRD on HD) Endocrine: Diabetes, Hyperparathyroidism Past Surgical History Past Surgical History: Cataract Removal, Tonsillectomy, Other (AV shunt ) Family History Family History: Diabetes, Hypertension Social History No ALCOHOL: none Drugs: None Lives: Alone Domestic Violence: Neg Current Problem List Problem List Problems Medical Problems: (1) Chest pain Status: Acute (2) End-stage renal disease on hemodialysis Status: Acute Current Medications Current Medications Current Medications Aspirin (Ecotrin) 81 mg DAILYWBKFT PO Last administered on 02/08/21at 13:55; Start 02/08/21 at 14:00 Hydralazine HCl (Apresoline Inj) 10 mg PRN Q4HRS PRN IVP ELEVATED BP, SEE COMMENTS; Start 02/08/21 at 14:15 Carvedilol (Coreg) 25 mg BIDWMEALS PO Last administered on 02/08/21at 17:29; Start 02/08/21 at 17:00 Atorvastatin Calcium (Lipitor) 10 mg QHS PO Last administered on 02/08/21at 20:52; Start 02/08/21 at 21:00 Aspirin (Aspirin Chewable) 81 mg DAILYWBKFT PO Last administered on 02/08/21at 17:29; Start 02/08/21 at 17:00 Insulin Human Lispro (HumaLOG) 0-6 UNITS BG 300-39... TIDWMEALS SQ Last administered on 02/08/21at 17:32; Start 02/08/21 at 17:00 Heparin Sodium (Porcine) (Heparin Sodium) 5,000 unit Q8HRS SQ Last administered on 02/09/21at 05:54; Start 02/08/21 at 17:15 Sevelamer Carbonate (Renvela) 1,600 mg TIDWMEALS PO Last administered on 02/08/21at 17:29; Start 02/08/21 at 17:00 Cinacalcet (Sensipar) 60 mg DAILY PO ; Start 02/09/21 at 09:00 Acetaminophen (Tylenol) 650 mg PRN Q6HRS PRN PO MILD PAIN / TEMP > 100.3'F; Start 02/08/21 at 17:00 Active Scripts Active Pravastatin Sodium 40 Mg Tablet 1 Tab PO QHS Carvedilol 25 Mg Tablet 25 Mg PO BIDWMEALS 30 Days Reported Symbicort 160-4.5 Mcg Inhaler (Budesonide/Formoterol Fumarate) 10.2 Gm Hfa.aer.ad 2 Puff IH BID Cinacalcet HCl 90 Mg Tablet 90 Mg PO DAILY Calcium Carbonate 500 Mg Tablet 3 Tab PO TIDWMEALS 30 Days Renal-Johnny Tablet (Folic Acid/Vit Bcomp,C) 0.8 Mg Tablet 1 Tab PO DAILY 30 Days Alphagan P (Brimonidine Tartrate) 5 Ml Drops 1 Drop OD BID Proair Hfa Inhaler (Albuterol Sulfate) 8.5 Gm Hfa.aer.ad 2 Puff IH PRN Q4-6HRS Cosopt Eye Drops (Dorzolamide Hcl/Timolol Maleat) 10 Ml Drops 1 Drop EACHEYE BID Aspirin 81 Mg Tab.chew 81 Mg PO DAILY Allergies Allergies: Coded Allergies: latex (Verified Allergy, Intermediate, 02/21/19) milk (Verified Allergy, Intermediate, 02/21/19) ROS General: YES: Fatigue PSYCHOLOGICAL ROS: YES: Anxiety Eyes: Yes Decreased vision HEENT: YES: [place] ALLERGY AND IMMUNOLOGY: YES: Seasonal Allergies Respiratory: YES: Cough, Shortness of breath Cardiovascular: yes Chest Pain Gastrointestinal: Yes Constipation Genitourinary: YES Other (ANURIA) Musculoskeletal: Yes Muscular Weakness Neurological: Yes Weakness Skin: Yes Dry Skin Physical Exam Physical Exam RIGHT FA LOOP GRAFT WITH A GOOD THRILL AND BRUIT General: Alert, Oriented X3, No acute distress HEENT: Atraumatic Lungs: Clear to auscultation Heart: Regular rate Abdomen: Normal bowel sounds, Soft, No tenderness Extremities: No cyanosis Skin: No breakdown Neuro: Normal speech Psych/Mental Status: Mental status NL, Mood NL MUSCULOSKELETAL: No joint tenderness, No deformity, No swelling Vitals VITALS Vital Signs Date Time Temp Pulse Resp B/P (MAP) Pulse Ox O2 Delivery O2 Flow Rate FiO2 02/09/21 10:58 97.8 68 16 140/82 (101) 99 Nasal Cannula 2.0 97.8 Labs Labs Laboratory Tests Test 02/08/21 11:30 02/08/21 17:18 02/08/21 20:25 02/08/21 20:55 White Blood Count 5.9 x10^3/uL (4.0-11.0) Red Blood Count 3.33 x10^6/uL (3.50-5.40) Hemoglobin 9.8 g/dL (12.0-15.5) Hematocrit 30.6 % (36.0-47.0) Mean Corpuscular Volume 92 fL (79-100) Mean Corpuscular Hemoglobin 29 pg (25-35) Mean Corpuscular Hemoglobin Concent 32 g/dL (31-37) Red Cell Distribution Width 14.8 % (11.5-14.5) Platelet Count 200 x10^3/uL (140-400) Neutrophils (%) (Auto) 63 % (31-73) Lymphocytes (%) (Auto) 14 % (24-48) Monocytes (%) (Auto) 11 % (0-9) Eosinophils (%) (Auto) 11 % (0-3) Basophils (%) (Auto) 1 % (0-3) Neutrophils # (Auto) 3.7 x10^3/uL (1.8-7.7) Lymphocytes # (Auto) 0.8 x10^3/uL (1.0-4.8) Monocytes # (Auto) 0.7 x10^3/uL (0.0-1.1) Eosinophils # (Auto) 0.6 x10^3/uL (0.0-0.7) Basophils # (Auto) 0.1 x10^3/uL (0.0-0.2) Sodium Level 140 mmol/L (136-145) Potassium Level 4.3 mmol/L (3.5-5.1) Chloride Level 103 mmol/L (98-107) Carbon Dioxide Level 23 mmol/L (21-32) Anion Gap 14 (6-14) Blood Urea Nitrogen 61 mg/dL (7-20) Creatinine 10.5 mg/dL (0.6-1.0) Estimated GFR (Cockcroft-Gault) 4.4 BUN/Creatinine Ratio 6 (6-20) Glucose Level 196 mg/dL (70-99) Calcium Level 8.8 mg/dL (8.5-10.1) Total Bilirubin 0.3 mg/dL (0.2-1.0) Aspartate Amino Transf (AST/SGOT) 12 U/L (15-37) Alanine Aminotransferase (ALT/SGPT) 17 U/L (14-59) Alkaline Phosphatase 118 U/L (46-116) Troponin I High Sensitivity 388 ng/L (4-50) 778 ng/L (4-50) Total Protein 6.4 g/dL (6.4-8.2) Albumin 2.6 g/dL (3.4-5.0) Albumin/Globulin Ratio 0.7 (1.0-1.7) Glucose (Fingerstick) 161 mg/dL (70-99) 151 mg/dL (70-99) Test 02/08/21 23:25 02/09/21 04:00 02/09/21 04:50 02/09/21 07:40 Troponin I High Sensitivity 790 ng/L (4-50) 690 ng/L (4-50) White Blood Count 5.9 x10^3/uL (4.0-11.0) Red Blood Count 3.24 x10^6/uL (3.50-5.40) Hemoglobin 9.5 g/dL (12.0-15.5) Hematocrit 29.3 % (36.0-47.0) Mean Corpuscular Volume 91 fL (79-100) Mean Corpuscular Hemoglobin 29 pg (25-35) Mean Corpuscular Hemoglobin Concent 32 g/dL (31-37) Red Cell Distribution Width 14.6 % (11.5-14.5) Platelet Count 190 x10^3/uL (140-400) Neutrophils (%) (Auto) 65 % (31-73) Lymphocytes (%) (Auto) 14 % (24-48) Monocytes (%) (Auto) 10 % (0-9) Eosinophils (%) (Auto) 10 % (0-3) Basophils (%) (Auto) 1 % (0-3) Neutrophils # (Auto) 3.8 x10^3/uL (1.8-7.7) Lymphocytes # (Auto) 0.8 x10^3/uL (1.0-4.8) Monocytes # (Auto) 0.6 x10^3/uL (0.0-1.1) Eosinophils # (Auto) 0.6 x10^3/uL (0.0-0.7) Basophils # (Auto) 0.0 x10^3/uL (0.0-0.2) Hepatitis B Surface Antigen Nonreactive (Nonreactive) Hepatitis B Surface Antibody Reactive Sodium Level 141 mmol/L (136-145) Potassium Level 5.0 mmol/L (3.5-5.1) Chloride Level 102 mmol/L (98-107) Carbon Dioxide Level 30 mmol/L (21-32) Anion Gap 9 (6-14) Blood Urea Nitrogen 65 mg/dL (7-20) Creatinine 11.3 mg/dL (0.6-1.0) Estimated GFR (Cockcroft-Gault) 4.1 Glucose Level 133 mg/dL (70-99) Calcium Level 8.8 mg/dL (8.5-10.1) Triglycerides Level 72 mg/dL (0-150) Cholesterol Level 193 mg/dL (0-200) LDL Cholesterol, Calculated 136 mg/dL (0-100) VLDL Cholesterol, Calculated 14 mg/dL (0-40) Non-HDL Cholesterol Calculated 150 mg/dL (0-129) HDL Cholesterol 43 mg/dL (40-60) Cholesterol/HDL Ratio 4.5 Thyroid Stimulating Hormone (TSH) 2.013 uIU/mL (0.358-3.74) Glucose (Fingerstick) 115 mg/dL (70-99) Test 02/09/21 09:50 SARS-CoV-2 Antigen (Rapid) Negative (NEGATIVE) Laboratory Tests Test 02/08/21 17:18 02/08/21 20:25 02/08/21 20:55 02/08/21 23:25 Glucose (Fingerstick) 161 mg/dL (70-99) 151 mg/dL (70-99) Troponin I High Sensitivity 778 ng/L (4-50) 790 ng/L (4-50) Test 02/09/21 04:00 02/09/21 04:50 02/09/21 07:40 02/09/21 09:50 White Blood Count 5.9 x10^3/uL (4.0-11.0) Red Blood Count 3.24 x10^6/uL (3.50-5.40) Hemoglobin 9.5 g/dL (12.0-15.5) Hematocrit 29.3 % (36.0-47.0) Mean Corpuscular Volume 91 fL (79-100) Mean Corpuscular Hemoglobin 29 pg (25-35) Mean Corpuscular Hemoglobin Concent 32 g/dL (31-37) Red Cell Distribution Width 14.6 % (11.5-14.5) Platelet Count 190 x10^3/uL (140-400) Neutrophils (%) (Auto) 65 % (31-73) Lymphocytes (%) (Auto) 14 % (24-48) Monocytes (%) (Auto) 10 % (0-9) Eosinophils (%) (Auto) 10 % (0-3) Basophils (%) (Auto) 1 % (0-3) Neutrophils # (Auto) 3.8 x10^3/uL (1.8-7.7) Lymphocytes # (Auto) 0.8 x10^3/uL (1.0-4.8) Monocytes # (Auto) 0.6 x10^3/uL (0.0-1.1) Eosinophils # (Auto) 0.6 x10^3/uL (0.0-0.7) Basophils # (Auto) 0.0 x10^3/uL (0.0-0.2) Hepatitis B Surface Antigen Nonreactive (Nonreactive) Hepatitis B Surface Antibody Reactive Sodium Level 141 mmol/L (136-145) Potassium Level 5.0 mmol/L (3.5-5.1) Chloride Level 102 mmol/L (98-107) Carbon Dioxide Level 30 mmol/L (21-32) Anion Gap 9 (6-14) Blood Urea Nitrogen 65 mg/dL (7-20) Creatinine 11.3 mg/dL (0.6-1.0) Estimated GFR (Cockcroft-Gault) 4.1 Glucose Level 133 mg/dL (70-99) Calcium Level 8.8 mg/dL (8.5-10.1) Troponin I High Sensitivity 690 ng/L (4-50) Triglycerides Level 72 mg/dL (0-150) Cholesterol Level 193 mg/dL (0-200) LDL Cholesterol, Calculated 136 mg/dL (0-100) VLDL Cholesterol, Calculated 14 mg/dL (0-40) Non-HDL Cholesterol Calculated 150 mg/dL (0-129) HDL Cholesterol 43 mg/dL (40-60) Cholesterol/HDL Ratio 4.5 Thyroid Stimulating Hormone (TSH) 2.013 uIU/mL (0.358-3.74) Glucose (Fingerstick) 115 mg/dL (70-99) SARS-CoV-2 Antigen (Rapid) Negative (NEGATIVE) Images Images XR CHEST 1V History: Chest pain, end-stage renal disease Comparison: 02/23/2018 Technique: Portable AP radiograph of the chest. Findings: The lungs are adequately inflated. There are diffuse hazy opacities with indistinct pulmonary vasculature and cardiomegaly. No pleural effusion or pneumothorax is identified. Degenerative changes of the shoulders and spine. Soft tissues are unremarkable. Impression: 1. Findings most likely represent pulmonary edema, however multifocal infection is not excluded. Electronically signed by: Monico Voss MD (02/08/2021 11:05 AM) [facility] Assessment/Plan Assessment/Plan IMP CHEST PAIN [id number] FA AVG ANEMIA NSTEMI DM II HTN PLAN [facility] NEEDED HD TODAY UF TO TW HD THEN MWF LEFT HEART CATH TODAY WILL FOLLOW CODY NORMAN MD Feb 09, 2021 11:43
--- NOTE | 2021-02-09 12:39 | NUR ---
SS following for discharge planning. SS reviewed pt chart and discussed with pt RN. Pt is from home and is currently requiring oxygen at two liters nasal canula. COVID19 negative. Cardiology and Nephrology consulted. Pt has outpatient hemodialysis at [facility], ; fax [phone], Monday, Monday, and Monday. Pt having left heart cath today. SS will continue to follow for discharge planning.
[2021-02-09] MEDS ORDERED: MIDAZOLAM HCL/PF 2 MG/2 ML VIAL. ONE (13:29)
[2021-02-09] MEDS ORDERED: fentaNYL PF VIAL 100 MCG/2 ML VIAL ONE (13:29)
[2021-02-09] MEDS ORDERED: LIDOCAINE 1% Multi-Dose 20 ML VIAL. ONE (13:32)
[2021-02-09] MEDS ORDERED: IODIXANOL 320 MG/ML 100 ML VIAL. ONE (13:32)
[2021-02-09] MEDS ORDERED: BIVALIRUDIN 250 MG VIAL. IV ONE ×2 (14:30→14:45)
[2021-02-09] MEDS ORDERED: LIDOCAINE 1% Multi-Dose 20 ML VIAL. INJ ONE (14:30)
[2021-02-09] MEDS ORDERED: IODIXANOL 320 MG/ML 100 ML VIAL. IART ONE (14:30)
[2021-02-09] MEDS ORDERED: fentaNYL PF VIAL 100 MCG/2 ML VIAL IV ONE (14:30)
[2021-02-09] MEDS ORDERED: MIDAZOLAM HCL/PF 2 MG/2 ML VIAL. IV ONE (14:30)
[2021-02-09] MEDS ORDERED: CLOPIDOGREL BISULFATE 75 MG TABLET PO ONE (14:45)
[2021-02-09] MEDS ORDERED: ASPIRIN 325 MG TABLET ONE (14:50)
[2021-02-09] MEDS ORDERED: CLOPIDOGREL BISULFATE 75 MG TABLET ONE (14:50)
[2021-02-09 15:04] VITALS: BP 135/52
[2021-02-09] MEDS ORDERED: ASPIRIN 325 MG TABLET PO ONE (15:15)
[2021-02-09] MEDS ORDERED: DIALYSIS PATIENT. MC PRN (16:00)
--- NOTE | 2021-02-09 17:00 | NUR ---
CRITICAL GLUCOSE OF 36 WAS DOCUMENTED IN WRONG PATIENT IN ERROR.
[2021-02-09 19:26] VITALS: BP 101/50
[2021-02-09] MEDS: LORazepam 0.5 MG TABLET PO PRN (19:32)
[2021-02-09] MEDS: ATORVASTATIN CALCIUM 10 MG TABLET. PO SCH (21:37)
[2021-02-09 22:18] VITALS: BP 127/57
[2021-02-10 03:50] VITALS: BP 112/46
[2021-02-10] MEDS: HEPARIN for SUB-Q USE 5,000 UNIT/ML VIAL. SQ SCH ×3 (05:33→21:00)
[2021-02-10 07:00] VITALS: BP 117/44
[2021-02-10 07:32] LABS: HEMATOCRIT 28.2 % (36.0-47.0); HEMOGLOBIN 9.2 g/dL (12.0-15.5); RED BLOOD COUNT 3.12 x10^6/uL (3.50-5.40); RED CELL DISTRIBUTION WIDTH 14.6 % (11.5-14.5); WHITE BLOOD COUNT 5.1 x10^3/uL (4.0-11.0)
[2021-02-10] MEDS: INSULIN LISPRO 300 UNITS/3 ML VIAL. SQ SCH ×3 (07:54→17:41)
[2021-02-10 07:58] LABS: CALCIUM 8.6 mg/dL (8.5-10.1); CREATININE 7.3 mg/dL (0.6-1.0); GFR 6.7; POTASSIUM 4.1 mmol/L (3.5-5.1)
[2021-02-10] MEDS: SEVELAMER CARBONATE 800 MG TABLET. PO SCH ×3 (08:00→17:35)
[2021-02-10] MEDS: CLOPIDOGREL BISULFATE 75 MG TABLET PO SCH ×2 (08:00→13:55)
[2021-02-10] MEDS ORDERED: ASPIRIN ENTERIC COATED 81 MG TABLET.DR. PO SCH (08:00)
[2021-02-10] MEDS: ASPIRIN ENTERIC COATED 325 MG TABLET.DR. PO SCH ×2 (08:00→13:55)
[2021-02-10] MEDS: CARVEDILOL 12.5 MG TABLET. PO SCH ×2 (08:00→17:35)
[2021-02-10] MEDS ORDERED: IV NORMAL SALINE 1000ML BAG 1,000 ML IV PRN ×2 (09:00)
[2021-02-10] MEDS: CINACALCET HCL 30 MG TABLET PO SCH (09:00)
[2021-02-10] MEDS ORDERED: DIALYSIS PATIENT. MC PRN (09:00)
[2021-02-10] MEDS ORDERED: ONDANSETRON ODT 4 MG TAB.RAPDIS. PO PRN (11:00)
[2021-02-10] MEDS ORDERED: MAG HYDROX/ALUMINUM HYD/SIMETH 30 ML ORAL.SUSP PO PRN (11:00)
[2021-02-10] MEDS ORDERED: ONDANSETRON PF 4 MG/2 ML VIAL. IVP ONE (11:00)
--- NOTE | 2021-02-10 11:07 | PDOC ---
Renal-Progress Notes Subjective Notes Notes NO NEW COMPLAINTS History of Present Illness Hx of present illness STABLE Vitals Vitals Vital Signs Date Time Temp Pulse Resp B/P (MAP) Pulse Ox O2 Delivery O2 Flow Rate FiO2 02/10/21 08:00 69 117/44 02/10/21 07:55 Nasal Cannula 3.0 02/10/21 07:00 98.1 16 97 98.1 Weight Weight [ ] I.O. Intake and Output Intake and Output 02/10/21 06:59 Intake Total 800 ml Balance 800 ml Intake Oral 800 ml Labs Labs Laboratory Tests Test 02/09/21 11:44 02/09/21 20:00 02/10/21 06:50 02/10/21 07:40 Glucose (Fingerstick) 112 mg/dL (70-99) 95 mg/dL (70-99) 82 mg/dL (70-99) White Blood Count 5.1 x10^3/uL (4.0-11.0) Red Blood Count 3.12 x10^6/uL (3.50-5.40) Hemoglobin 9.2 g/dL (12.0-15.5) Hematocrit 28.2 % (36.0-47.0) Mean Corpuscular Volume 90 fL (79-100) Mean Corpuscular Hemoglobin 30 pg (25-35) Mean Corpuscular Hemoglobin Concent 33 g/dL (31-37) Red Cell Distribution Width 14.6 % (11.5-14.5) Platelet Count 173 x10^3/uL (140-400) Sodium Level 138 mmol/L (136-145) Potassium Level 4.1 mmol/L (3.5-5.1) Chloride Level 98 mmol/L (98-107) Carbon Dioxide Level 30 mmol/L (21-32) Anion Gap 10 (6-14) Blood Urea Nitrogen 36 mg/dL (7-20) Creatinine 7.3 mg/dL (0.6-1.0) Estimated GFR (Cockcroft-Gault) 6.7 Glucose Level 85 mg/dL (70-99) Calcium Level 8.6 mg/dL (8.5-10.1) Review of Systems Constitutional: yes: weakness, alert, oriented Ears/Nose/Throat: Yes: no symptom reported Eyes: Yes: no symptom reported Pulmonary: Yes dyspnea Cardiovascular: Yes no symptom reported Gastrointestional: Yes: no symptom reported Genitourinary: Yes: no symptom reported Musculoskeletal: Yes: no symptom reported Skin: Yes no symptom reported Psychiatric/Neurological: Yes: no symptom reported Endocrine: Yes: no symptom reported Physical Exam General Appearance: no apparent distress Skin: warm Respiratory: decreased breath sounds Heart: S1S2 Abdomen: soft, bowel sounds present Genitourinary: bladder flat Extremities: pulses present Neurology: alert, oriented Musculoskeletal: Osteoarthritis Assessment Assessment IMP CHEST PAIN [id number] FA AVG ANEMIA NSTEMI DM II HTN PLAN SUSANA NEEDED HD TODAY UF TO TW HD THEN MWF WILL FOLLOW CODY NORMAN MD Feb 10, 2021 11:07
--- NOTE | 2021-02-10 11:32 | PDOC ---
GARLAND VILLALTA PHARMACEUTICAL SALES SPECIALIST 02/10/21 1132: CARDIO Progress Notes Date and Time Date of Service 02/10/21 Time of Evaluation 1130 Subjective Subjective: No Chest Pain, No shortness of breath, No Palpitations, No Dizziness Vitals Vitals Vital Signs Date Time Temp Pulse Resp B/P (MAP) Pulse Ox O2 Delivery O2 Flow Rate FiO2 02/10/21 08:00 69 117/44 02/10/21 07:55 Nasal Cannula 3.0 02/10/21 07:00 98.1 16 97 98.1 Weight Weight [ ] Input and Output Intake and Output Intake and Output 02/10/21 07:00 Intake Total 800 ml Balance 800 ml Intake Oral 800 ml Laboratory Labs Laboratory Tests Test 02/09/21 11:44 02/09/21 20:00 02/10/21 06:50 02/10/21 07:40 Glucose (Fingerstick) 112 mg/dL (70-99) 95 mg/dL (70-99) 82 mg/dL (70-99) White Blood Count 5.1 x10^3/uL (4.0-11.0) Red Blood Count 3.12 x10^6/uL (3.50-5.40) Hemoglobin 9.2 g/dL (12.0-15.5) Hematocrit 28.2 % (36.0-47.0) Mean Corpuscular Volume 90 fL (79-100) Mean Corpuscular Hemoglobin 30 pg (25-35) Mean Corpuscular Hemoglobin Concent 33 g/dL (31-37) Red Cell Distribution Width 14.6 % (11.5-14.5) Platelet Count 173 x10^3/uL (140-400) Sodium Level 138 mmol/L (136-145) Potassium Level 4.1 mmol/L (3.5-5.1) Chloride Level 98 mmol/L (98-107) Carbon Dioxide Level 30 mmol/L (21-32) Anion Gap 10 (6-14) Blood Urea Nitrogen 36 mg/dL (7-20) Creatinine 7.3 mg/dL (0.6-1.0) Estimated GFR (Cockcroft-Gault) 6.7 Glucose Level 85 mg/dL (70-99) Calcium Level 8.6 mg/dL (8.5-10.1) Review of Systems Constitutional: yes: weakness, alert, oriented Ears/Nose/Throat: Yes: no symptom reported Eyes: Yes: no symptom reported Pulmonary: Yes dyspnea Cardiovascular: Yes no symptom reported Gastrointestional: Yes: no symptom reported Genitourinary: Yes: no symptom reported Musculoskeletal: Yes: no symptom reported Skin: Yes no symptom reported Psychiatric/Neurological: Yes: no symptom reported Endocrine: Yes: no symptom reported Physical Exam HEENT: Neck Supple W Full Motion Chest: Symmetric LUNGS: Clear to Auscultation Heart: RRR Abdomen: Soft N/T Extremities: No Edema Neurology: alert, oriented, follow commands Assessment Assessment 1. Severe 3V CAD; s/p PCI/EVELYN to the LAD 2. Mild troponin elevation; high sensitivity trop 790. Most probable type II, demand ischemia in setting of renal failure and hypertensive urgency. 3. ESRD on HD 4. Mild acute on chronic diastolic CHF; appears compensated 5. Hypertensive urgency; better controlled 6. Hyperlipidemia; statin 7. Diabetes, II 8. Anemia of chronic disease 9. AMAN Recommendations Echo today Secondary prevention including DAPT with ASA/Plavix and high dose statin therapy . (Aspirin 325 mg daily for 1 month followed by 81 mg daily) Fluid offloading via HD Risk stratification modification Cardiac rehab referral Plan outpatient staged PCI/EVELYN to RCA and IFR to LCx in 2-3 weeks. Justicifation of Admission Dx: Justifications for Admission: Justification of Admission Dx: Yes Comments: severe 3V CAD Acute on chronic diastolic CHF QUINCY OMALLEY MD 02/10/212056: CARDIO Progress Notes Assessment Assessment Patient seen and examined. Agree with SPRINKLER DRIVER's assessment and plan. NSTEMI, Cardiac cath showed 3v CAD - she underwent PCI/EVELYN to LAD Plan for staged PCI to RCA and IFR/PCI to LCX in 2-4 weeks Acute on chr diastolic HF better compensated Continue fluid removal with HD per nephrology GARLAND VILLALTA APRN Feb 10, 2021 11:32 QUINCY OMALLEY MD Feb 10, 2021 20:57
--- NOTE | 2021-02-10 11:39 | NUR ---
SS following up with discharge planning. SS reviewed pt chart and discussed with pt RN. Pt is currently requiring oxygen at three liters nasal canula. COVID19 negative. Pt had heart cath on 02/09/2021. Pt has outpatient hemodialysis at [facility], ; fax [phone], Monday, Monday, and Monday. Pt has home oxygen. SS will continue to follow for discharge planning.
--- NOTE | 2021-02-10 11:59 | PDOC2 ---
GI CONSULT Date of Service: DATE: 02/10/21 TIME: 11:36 Reason For Consult: epigastric pain HPI: HPI: 70 y/o admitted 02/08/21 - NSTEMI - s/p cardiac cath 02/09 w/ 3 vessel CAD s/p stent placement. Pt unaware that stent was placed. We are now asked to see for abdominal pain. She says pain is "just a pain" located in mid/right abdomen that probably started sometime yesterday. It comes and goes, maybe worse after stooling. She reports one stool today that was possibly diarrhea. Denies reflux/heartburn, dysphagia, n/v, constipation, hematochezia, melena, change in appetite, and weight loss. EGD w/ Dr. 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 Had a colonoscopy at some point in the past, details unavailable. S/p cholecystectomy. Denies liver, pancreas, or PUD history. H/o anemia. Nurse unaware of any GI complaints. Home meds include ASA, now on Plavix as well. Pantoprazole ordered today also and looks like she was given Zofran this morning. PMH: PMH: CAD, HTN, HLD, CHF, PAD, AMAN, COPD, PE, DM, anxiety, depression, glaucoma, splenic cyst, adrenal myolipoma, thyroid nodule, uterine fibroid breast biopsy, LUE AV fistula, tonsillectomy, ORIF right foot, thyroid biopsy, cholecystectomy, thoracentesis FH: Family History: No pertinent hx Social History: Smoke: No ALCOHOL: none Drugs: None ROS: GEN: Denies fevers, chills, sweats HEENT: Denies blurred vision, sore throat CV: Denies chest pain RESP: Denies shortness of air, cough GI: Per HPI : Denies hematuria, dysuria ENDO: Denies weight changes NEURO: Denies confusion, dizziness MSK: Denies weakness, joint pain/swelling SKIN: Denies jaundice, pruritus Vitals: Vitals: Vital Signs Date Time Temp Pulse Resp B/P (MAP) Pulse Ox O2 Delivery O2 Flow Rate FiO2 12/1/21 08:00 69 117/44 12/1/21 07:55 Nasal Cannula 3.0 02/10/21 07:00 98.1 16 97 98.1 Labs: Labs: Laboratory Tests Test 02/09/21 11:44 02/09/21 20:00 02/10/21 06:50 02/10/21 07:40 Glucose (Fingerstick) 112 mg/dL (70-99) 95 mg/dL (70-99) 82 mg/dL (70-99) White Blood Count 5.1 x10^3/uL (4.0-11.0) Red Blood Count 3.12 x10^6/uL (3.50-5.40) Hemoglobin 9.2 g/dL (12.0-15.5) Hematocrit 28.2 % (36.0-47.0) Mean Corpuscular Volume 90 fL (79-100) Mean Corpuscular Hemoglobin 30 pg (25-35) Mean Corpuscular Hemoglobin Concent 33 g/dL (31-37) Red Cell Distribution Width 14.6 % (11.5-14.5) Platelet Count 173 x10^3/uL (140-400) Sodium Level 138 mmol/L (136-145) Potassium Level 4.1 mmol/L (3.5-5.1) Chloride Level 98 mmol/L (98-107) Carbon Dioxide Level 30 mmol/L (21-32) Anion Gap 10 (6-14) Blood Urea Nitrogen 36 mg/dL (7-20) Creatinine 7.3 mg/dL (0.6-1.0) Estimated GFR (Cockcroft-Gault) 6.7 Glucose Level 85 mg/dL (70-99) Calcium Level 8.6 mg/dL (8.5-10.1) Allergies: Coded Allergies: latex (Verified Allergy, Intermediate, 02/21/19) milk (Verified Allergy, Intermediate, 02/21/19) Medications: Current Medications Medications (Trade) Dose Ordered Sig/Barbara Route PRN Reason Start Time Stop Time Status Last Admin Dose Admin Heparin Sodium/ Sodium Chloride (HEPARIN for ARTERIAL LINE FLUSH) 1,000 unit 1X ONCE IART 02/09/21 14:30 02/09/21 14:31 DC 02/09/21 15:19 Midazolam HCl (Versed) 2 mg 1X ONCE IV 02/09/21 14:30 02/09/21 14:31 DC 02/09/21 15:17 Fentanyl Citrate (Fentanyl 2ml Vial) 100 mcg 1X ONCE IV 02/09/21 14:30 02/09/21 14:31 DC 02/09/21 15:18 Iodixanol (Visipaque 320) 100 ml 1X ONCE IART 02/09/21 14:30 02/09/21 14:31 DC 02/09/21 15:34 Lidocaine HCl (Lidocaine 1% 20ml Vial) 20 ml 1X ONCE INJ 02/09/21 14:30 02/09/21 14:31 DC 02/09/21 15:17 Bivalirudin (Angiomax) 250 mg 1X ONCE IV 02/09/21 14:45 02/09/21 14:46 DC 02/09/21 15:18 Clopidogrel Bisulfate (Plavix) 600 mg 1X ONCE PO 02/09/21 14:45 02/09/21 14:46 DC 02/09/21 15:36 Aspirin (Ladarius Aspirin) 325 mg 1X ONCE PO 02/09/21 15:15 02/09/21 15:16 DC 02/09/21 15:15 Lorazepam (Ativan) 0.5 mg PRN Q6HRS PRN PO ANXIETY / AGITATION 02/09/21 16:30 02/09/21 19:32 Atorvastatin Calcium (Lipitor) 40 mg QHS PO 02/09/21 21:00 02/09/21 21:37 Ondansetron HCl (Zofran) 4 mg 1X ONCE IVP 02/10/21 11:00 02/10/21 11:01 DC 02/10/21 11:01 Imaging: Imaging: CXR 02/08 Impression: 1. Findings most likely represent pulmonary edema, however multifocal infection is not excluded. Cardiac cath 02/09 pending PE: GEN: dialyzing HEENT: Atraumatic LUNGS: CTAB, 3L NC HEART: RRR ABD: NABS, S/ND/NT EXTREMITY: No edema SKIN: No rashes, no jaundice NEURO/PSYCH: A & O 3, vague historian A/P: A/P: NSTEMI, CAD s/p stent Chronic anemia, ESRD on HD Abdominal pain - tells me right middle H/o GERD CRC screen - had colonoscopy at some point in the past - ?h/o polyps per old office referral S/p cholecystectomy COVID negative -- Abd US ordered per primary - await this. Lab recheck ordered for tomorrow - will add anemia parameters. Agree w/ PPI. Monitor stooling - ?having diarrhea - if so, check stool studies. Will attempt to review past scopes. CRISTINO CUETO Feb 10, 2021 11:59
--- NOTE | 2021-02-10 12:55 | CARD ---
MR#: [id number] Date of Study: 02/09/2021 Ordering Physician: MICHELLE HUGHES, Referring Physician: MICHELLE HUGHES, Tech: RT Suzette(R) APPROVED REPORT Technologist: RT Suzette(R) Nurse: Bambi Crisostomo RN Procedure(s) performed: 1. Left heart catheterization and selective coronary angiography 2. Successful complex PCI/drug-eluting stent placement to the left anterior descending artery fl time: 8.6 min dose: 98 gycm2 contrast: 162 ml moderate sedation: 60 min INDICATION The indication(s) include : non-STEMI . [facility] Clinical Frailty Scale [facility] Clinical Frailty Scale: Severely Frail Heart Failure Heart Failure: Yes If Yes, Newly Diagnosed: No If Yes, HF Type: Diastolic If Yes, NYHA Class: Class III CASE TECHNIQUE IV conscious sedation was used throughout procedure with appropriate monitoring and was performed in the presence of a registered nurse who was an independent trained observer other than the physician p erforming the procedure. During this case, Fluoroscopy and low osmolar contrast were used for imaging . Specimen(s) Removed: No Estimated Blood loss: 10 cc's. PROCEDURE NARRATIVE After explaining the risks, benefits and alternative options, informed consent was obtained. Patient was brought to the cardiac Voip Network Engineer and her right groin was prepped and draped in the usual fashion. 15 cc of 2% lidocaine was infiltrated into the skin and subcutaneous tissues for local anesthesia. Vascular ultrasound was used to obtain arterial access in the right common femoral artery and a 6 Fr ench sheath was inserted. 6 [place] JL4 and 6 [place] JR4 catheters were used to perform selective ang iography of the left and right coronary arteries. LVEDP and transaortic gradients were measured. Th e following findings were noted: FINDINGS 1. Hemodynamics: Left ventricular end-diastolic pressure 15 mmHg. No pullback gradient across the a ortic valve. 2. Coronary angiography: a. The left main coronary artery arose from the left sinus of Valsalva, gave rise to the left anteri or descending and left circumflex arteries and did not show any significant stenosis. b. The left anterior descending artery showed a heavily calcified 95% stenosis in the proximal segme nt. c. The left circumflex artery showed a calcified 60 to 70% stenosis in the proximal segment. d. The right coronary artery was a large and dominant vessel arising from the right sinus of Valsalv a that showed tandem 60% and calcified 80% stenoses in the distal segment. INTERVENTION Patient was deemed a poor candidate for coronary artery bypass surgery secondary to her comorbidities and activity level. Hence we decided to pursue percutaneous intervention. The left main coronary a rtery was engaged with a 6 [place] XB 3.5 guide catheter and the stenosis in the proximal segment of t he left anterior descending artery was crossed with a 0.014 inch [employer] guidewire. This was predilated initially with 3.0 x 15 mm Euphora balloon. Since there was significant recoil and calcif ication, the lesion was then dilated with a 3.5 x 15 mm noncompliant Euphora balloon. The lesion was then treated with a 4.0 x 16 mm [employer] Promus Elite drug-eluting stent that was deployed at 18 miladis. Patient had about 10 to 20% residual stenosis from the eccentric chunk of calcification b ut since the stent was well opposed, we decided to accept the results. Patient tolerated the procedu re well. Hemostasis in the right groin was achieved using Angio-Seal. There were no immediate compl ications. DIMITRIOS Flow DIMITRIOS Flow (Pre-Intervention): DIMITRIOS-2 DIMITRIOS Flow (Post-Intervention): DIMITRIOS-3 Conclusion 1. Severe three-vessel coronary artery disease 2. Successful PCI/drug-eluting stent placement to the left anterior descending artery Recommendations 1. Aspirin 325 mg daily for 1 month followed by 81 mg daily 2. Plavix 75 mg daily 3. Plan for staged PCI/EVELYN to RCA and IFR to LCx 4. Cardiovascular risk factor modification Signed by : Eliezer Victor, Electronically Approved : 02/10/2021 12:54:28
[2021-02-10] MEDS: PANTOPRAZOLE 40 MG TABLET.DR. PO SCH (13:55)
[2021-02-10 15:00] VITALS: BP 111/45
--- NOTE | 2021-02-10 16:29 | PDOC ---
PROGRESS NOTES Date of Service DATE: 02/10/21 TIME: 16:23 Subjective Subjective cardiac cath showed triple vessel disease and had LAD stent. denies chest pain. seen earlier today during dialysis. complained of nausea and epigastric pain. Objective Objective Vital Signs Date Time Temp Pulse Resp B/P (MAP) Pulse Ox O2 Delivery O2 Flow Rate FiO2 02/10/21 15:00 98.7 77 18 111/45 (67) 95 Nasal Cannula 3.0 98.7 Intake and Output 02/10/21 07:00 Intake Total 800 ml Balance 800 ml Intake Oral 800 ml Physical Exam Abdomen: Soft, Other (epigastric tenderness. no guarding. not distended. obese) Heart: Regular rate, Normal S1, Normal S2 Extremities: No edema General: Alert HEENT: Atraumatic Lungs: Clear to auscultation Neck: Supple Neuro: Normal speech Psych/Mental Status: Mental status NL Skin: No rashes Assessment Assessment Problems. NSTEMI____. 2. End-stage renal disease, on hemodialysis.M-W-F 3. Acute on chronic diastolic congestive heart failure, most likely secondary to fluid overload and missed dialysis 02/08 due to chest pain. 4. Hypertension. 5. Hyperlipidemia. 6. Chronic obstructive pulmonary disease. 7. Obstructive sleep apnea. 8. Anemia of chronic disease. 9. Diabetes mellitus type 2. 10. Severe protein calorie malnutrition. epigastric abdominal pain with nausea Medical Problems: (1) Chest pain Status: Acute (2) End-stage renal disease on hemodialysis Status: Acute Plan Plan of Care aspirin and plavix hemodialysis done today abdominal ultrasound start zofran prn GI consult evtual stent to RCA and left circumflex per cardiology as out patient lab tomorrow Comment Review of Relevant I have reviewed the following items jorge (where applicable) has been applied. Labs Laboratory Tests Test 02/08/21 17:18 02/08/21 20:25 02/08/21 20:55 02/08/21 23:25 Glucose (Fingerstick) 161 mg/dL (70-99) 151 mg/dL (70-99) Troponin I High Sensitivity 778 ng/L (4-50) 790 ng/L (4-50) Test 02/09/21 04:00 02/09/21 04:50 02/09/21 07:40 02/09/21 09:50 White Blood Count 5.9 x10^3/uL (4.0-11.0) Red Blood Count 3.24 x10^6/uL (3.50-5.40) Hemoglobin 9.5 g/dL (12.0-15.5) Hematocrit 29.3 % (36.0-47.0) Mean Corpuscular Volume 91 fL (79-100) Mean Corpuscular Hemoglobin 29 pg (25-35) Mean Corpuscular Hemoglobin Concent 32 g/dL (31-37) Red Cell Distribution Width 14.6 % (11.5-14.5) Platelet Count 190 x10^3/uL (140-400) Neutrophils (%) (Auto) 65 % (31-73) Lymphocytes (%) (Auto) 14 % (24-48) Monocytes (%) (Auto) 10 % (0-9) Eosinophils (%) (Auto) 10 % (0-3) Basophils (%) (Auto) 1 % (0-3) Neutrophils # (Auto) 3.8 x10^3/uL (1.8-7.7) Lymphocytes # (Auto) 0.8 x10^3/uL (1.0-4.8) Monocytes # (Auto) 0.6 x10^3/uL (0.0-1.1) Eosinophils # (Auto) 0.6 x10^3/uL (0.0-0.7) Basophils # (Auto) 0.0 x10^3/uL (0.0-0.2) Hepatitis B Surface Antigen Nonreactive (Nonreactive) Hepatitis B Surface Antibody Reactive Sodium Level 141 mmol/L (136-145) Potassium Level 5.0 mmol/L (3.5-5.1) Chloride Level 102 mmol/L (98-107) Carbon Dioxide Level 30 mmol/L (21-32) Anion Gap 9 (6-14) Blood Urea Nitrogen 65 mg/dL (7-20) Creatinine 11.3 mg/dL (0.6-1.0) Estimated GFR (Cockcroft-Gault) 4.1 Glucose Level 133 mg/dL (70-99) Calcium Level 8.8 mg/dL (8.5-10.1) Troponin I High Sensitivity 690 ng/L (4-50) Triglycerides Level 72 mg/dL (0-150) Cholesterol Level 193 mg/dL (0-200) LDL Cholesterol, Calculated 136 mg/dL (0-100) VLDL Cholesterol, Calculated 14 mg/dL (0-40) Non-HDL Cholesterol Calculated 150 mg/dL (0-129) HDL Cholesterol 43 mg/dL (40-60) Cholesterol/HDL Ratio 4.5 Thyroid Stimulating Hormone (TSH) 2.013 uIU/mL (0.358-3.74) Glucose (Fingerstick) 115 mg/dL (70-99) SARS-CoV-2 RNA (OSWALDO) Negative (Negative) SARS-CoV-2 Antigen (Rapid) Negative (NEGATIVE) Test 02/09/21 11:44 02/09/21 20:00 02/10/21 06:50 02/10/21 07:40 Glucose (Fingerstick) 112 mg/dL (70-99) 95 mg/dL (70-99) 82 mg/dL (70-99) White Blood Count 5.1 x10^3/uL (4.0-11.0) Red Blood Count 3.12 x10^6/uL (3.50-5.40) Hemoglobin 9.2 g/dL (12.0-15.5) Hematocrit 28.2 % (36.0-47.0) Mean Corpuscular Volume 90 fL (79-100) Mean Corpuscular Hemoglobin 30 pg (25-35) Mean Corpuscular Hemoglobin Concent 33 g/dL (31-37) Red Cell Distribution Width 14.6 % (11.5-14.5) Platelet Count 173 x10^3/uL (140-400) Sodium Level 138 mmol/L (136-145) Potassium Level 4.1 mmol/L (3.5-5.1) Chloride Level 98 mmol/L (98-107) Carbon Dioxide Level 30 mmol/L (21-32) Anion Gap 10 (6-14) Blood Urea Nitrogen 36 mg/dL (7-20) Creatinine 7.3 mg/dL (0.6-1.0) Estimated GFR (Cockcroft-Gault) 6.7 Glucose Level 85 mg/dL (70-99) Calcium Level 8.6 mg/dL (8.5-10.1) Laboratory Tests Test 02/09/21 20:00 02/10/21 06:50 02/10/21 07:40 Glucose (Fingerstick) 95 mg/dL (70-99) 82 mg/dL (70-99) White Blood Count 5.1 x10^3/uL (4.0-11.0) Red Blood Count 3.12 x10^6/uL (3.50-5.40) Hemoglobin 9.2 g/dL (12.0-15.5) Hematocrit 28.2 % (36.0-47.0) Mean Corpuscular Volume 90 fL (79-100) Mean Corpuscular Hemoglobin 30 pg (25-35) Mean Corpuscular Hemoglobin Concent 33 g/dL (31-37) Red Cell Distribution Width 14.6 % (11.5-14.5) Platelet Count 173 x10^3/uL (140-400) Sodium Level 138 mmol/L (136-145) Potassium Level 4.1 mmol/L (3.5-5.1) Chloride Level 98 mmol/L (98-107) Carbon Dioxide Level 30 mmol/L (21-32) Anion Gap 10 (6-14) Blood Urea Nitrogen 36 mg/dL (7-20) Creatinine 7.3 mg/dL (0.6-1.0) Estimated GFR (Cockcroft-Gault) 6.7 Glucose Level 85 mg/dL (70-99) Calcium Level 8.6 mg/dL (8.5-10.1) Medications Current Medications Aspirin (Ecotrin) 81 mg DAILYWBKFT PO Last administered on 02/08/21at 13:55; Start 02/08/21 at 14:00; Stop 02/09/21 at 18:00; Status DC Hydralazine HCl (Apresoline Inj) 10 mg PRN Q4HRS PRN IVP ELEVATED BP, SEE COMMENTS; Start 02/08/21 at 14:15 Carvedilol (Coreg) 25 mg BIDWMEALS PO Last administered on 02/09/21at 17:00; Start 02/08/21 at 17:00 Atorvastatin Calcium (Lipitor) 10 mg QHS PO Last administered on 02/08/21at 20:52; Start 02/08/21 at 21:00; Stop 02/09/21 at 18:00; Status DC Aspirin (Aspirin Chewable) 81 mg DAILYWBKFT PO Last administered on 02/08/21at 17:29; Start 02/08/21 at 17:00; Stop 02/09/21 at 15:05; Status DC Insulin Human Lispro (HumaLOG) 0-6 UNITS BG 300-39... TIDWMEALS SQ Last administered on 02/08/21at 17:32; Start 02/08/21 at 17:00 Heparin Sodium (Porcine) (Heparin Sodium) 5,000 unit Q8HRS SQ Last administered on 02/10/21at 14:04; Start 02/08/21 at 17:15 Sevelamer Carbonate (Renvela) 1,600 mg TIDWMEALS PO Last administered on 02/10/21at 13:56; Start 02/08/21 at 17:00 Cinacalcet (Sensipar) 60 mg DAILY PO ; Start 02/09/21 at 09:00 Acetaminophen (Tylenol) 650 mg PRN Q6HRS PRN PO MILD PAIN / TEMP > 100.3'F; Start 02/08/21 at 17:00 Epoetin Aaron-epbx (RETACRIT for ESRD PTS) 10,000 unit MoWeFr@2100 SQ ; Start 02/10/21 at 21:00 Fentanyl Citrate (Fentanyl 2ml Vial) 100 mcg STK-MED ONCE .ROUTE ; Start 02/09/21 at 13:29; Stop 02/09/21 at 13:29; Status DC Midazolam HCl (Versed) 2 mg STK-MED ONCE .ROUTE ; Start 02/09/21 at 13:29; Stop 02/09/21 at 13:30; Status DC Lidocaine HCl (Lidocaine 1% 20ml Vial) 20 ml STK-MED ONCE .ROUTE ; Start at 13:32; Stop 02/09/21 at 13:32; Status DC Heparin Sodium/ Sodium Chloride 500 ml @ As Directed STK-MED ONCE .ROUTE ; Start 02/09/21 at 13:32; Stop 02/09/21 at 13:32; Status DC Iodixanol (Visipaque 320) 100 ml STK-MED ONCE .ROUTE ; Start 02/09/21 at 13:32; Stop 02/09/21 at 13:33; Status DC Heparin Sodium/ Sodium Chloride (HEPARIN for ARTERIAL LINE FLUSH) 1,000 unit 1X ONCE IART Last administered on 02/09/21at 15:19; Start 02/09/21 at 14:30; Stop 02/09/21 at 14:31; Status DC Midazolam HCl (Versed) 2 mg 1X ONCE IV Last administered on 02/09/21at 15:17; Start 02/09/21 at 14:30; Stop 02/09/21 at 14:31; Status DC Fentanyl Citrate (Fentanyl 2ml Vial) 100 mcg 1X ONCE IV Last administered on 02/09/21at 15:18; Start 02/09/21 at 14:30; Stop 02/09/21 at 14:31; Status DC Iodixanol (Visipaque 320) 100 ml 1X ONCE IART Last administered on 02/09/21at 15:34; Start 02/09/21 at 14:30; Stop 02/09/21 at 14:31; Status DC Lidocaine HCl (Lidocaine 1% 20ml Vial) 20 ml 1X ONCE INJ Last administered on 02/09/21at 15:17; Start 02/09/21 at 14:30; Stop 02/09/21 at 14:31; Status DC Bivalirudin (Angiomax) 250 mg STK-MED ONCE IV ; Start 02/09/21 at 14:30; Stop 02/09/21 at 14:30; Status DC Bivalirudin (Angiomax) 250 mg 1X ONCE IV Last administered on 02/09/21at 15:18; Start 02/09/21 at 14:45; Stop 02/09/21 at 14:46; Status DC Clopidogrel Bisulfate (Plavix) 600 mg 1X ONCE PO Last administered on 02/09/21at 15:36; Start 02/09/21 at 14:45; Stop 02/09/21 at 14:46; Status DC Clopidogrel Bisulfate (Plavix) 75 mg STK-MED ONCE .ROUTE ; Start 02/09/21 at 14:50; Stop 02/09/21 at 14:51; Status DC Aspirin (Ladarius Aspirin) 325 mg STK-MED ONCE .ROUTE ; Start 02/09/21 at 14:50; Stop 02/09/21 at 14:51; Status DC Aspirin (Ladarius Aspirin) 325 mg 1X ONCE PO Last administered on 02/09/21at 15:15; Start 02/09/21 at 15:15; Stop 02/09/21 at 15:16; Status DC Info (PHARMACY MONITORING -- do not chart) 1 each PRN DAILY PRN MC SEE COMMENTS; Start 02/09/21 at 16:00; Status Cancel Lorazepam (Ativan) 0.5 mg PRN Q6HRS PRN PO ANXIETY / AGITATION Last administered on 02/09/21at 19:32; Start 02/09/21 at 16:30 Aspirin (Ecotrin) 325 mg DAILYWBKFT PO ; Start 02/10/21 at 08:00; Status UNV Atorvastatin Calcium (Lipitor) 40 mg QHS PO Last administered on 02/09/21at 21:37; Start 02/09/21 at 21:00 Aspirin (Ecotrin) 325 mg DAILYWBKFT PO Last administered on 02/10/21at 13:55; Start 02/10/21 at 08:00 Clopidogrel Bisulfate (Plavix) 75 mg DAILYWBKFT PO Last administered on 02/10/21at 13:55; Start 02/10/21 at 08:00 Sodium Chloride 1,000 ml @ 1,000 mls/hr Q1H PRN IV hypotension; Start 02/10/21 at 09:00; Stop 02/10/21 at 14:59; Status DC Sodium Chloride 1,000 ml @ 400 mls/hr Q2H30M PRN IV PATENCY; Start 02/10/21 at 09:00; Stop 02/10/21 at 20:59 Info (PHARMACY MONITORING -- do not chart) 1 each PRN DAILY PRN MC SEE COMMENTS; Start 02/10/21 at 09:00 Ondansetron HCl (Zofran Odt) 4 mg PRN Q6HRS PRN PO NAUSEA/VOMITING; Start 02/10/21 at 11:00 Al Hydroxide/Mg Hydroxide (Mylanta Plus Xs) 30 ml PRN Q2HR PRN PO HEARTBURN / GAS; Start 02/10/21 at 11:00 Pantoprazole Sodium (Protonix) 40 mg DAILYAC PO Last administered on 02/10/21at 13:55; Start 02/10/21 at 12:00 Ondansetron HCl (Zofran) 4 mg 1X ONCE IVP Last administered on 02/10/21at 11:01; Start 02/10/21 at 11:00; Stop 02/10/21 at 11:01; Status DC Active Scripts Active Pravastatin Sodium 40 Mg Tablet 1 Tab PO QHS Carvedilol 25 Mg Tablet 25 Mg PO BIDWMEALS 30 Days Reported Symbicort 160-4.5 Mcg Inhaler (Budesonide/Formoterol Fumarate) 10.2 Gm Hfa.aer.ad 2 Puff IH BID Cinacalcet HCl 90 Mg Tablet 90 Mg PO DAILY Calcium Carbonate 500 Mg Tablet 3 Tab PO TIDWMEALS 30 Days Renal-Johnny Tablet (Folic Acid/Vit Bcomp,C) 0.8 Mg Tablet 1 Tab PO DAILY 30 Days Alphagan P (Brimonidine Tartrate) 5 Ml Drops 1 Drop OD BID Proair Hfa Inhaler (Albuterol Sulfate) 8.5 Gm Hfa.aer.ad 2 Puff IH PRN Q4-6HRS Cosopt Eye Drops (Dorzolamide Hcl/Timolol Maleat) 10 Ml Drops 1 Drop EACHEYE BID Aspirin 81 Mg Tab.chew 81 Mg PO DAILY Vitals/I & O Vital Sign - Last 24 Hours 02/09/21 02/09/21 02/09/21 02/09/21 17:00 19:26 20:00 22:18 Temp 97.9 98.1 97.9 98.1 Pulse 72 76 73 Resp 18 16 B/P (MAP) 135/52 101/50 (67) 127/57 (80) Pulse Ox 95 100 O2 Delivery Nasal Cannula Nasal Cannula Nasal Cannula O2 Flow Rate 3.0 2.0 3.0 02/10/21 02/10/21 02/10/21 02/10/21 03:50 07:00 07:55 08:00 Temp 98.2 98.1 98.2 98.1 Pulse 66 69 69 Resp 18 16 B/P (MAP) 112/46 (68) 117/44 (68) 117/44 Pulse Ox 100 97 O2 Delivery Nasal Cannula Nasal Cannula Nasal Cannula O2 Flow Rate 3.0 3.0 3.0 02/10/21 15:00 Temp 98.7 98.7 Pulse 77 Resp 18 B/P (MAP) 111/45 (67) Pulse Ox 95 O2 Delivery Nasal Cannula O2 Flow Rate 3.0 Intake and Output 02/09/21 02/09/21 02/10/21 15:00 23:00 07:00 Intake Total 200 ml 300 ml 300 ml Balance 200 ml 300 ml 300 ml Justifications for Admission Other Justification DIVINA BRIGGS MD Feb 10, 2021 16:29
--- NOTE | 2021-02-10 18:05 | RAD ---
Complete Abdominal Ultrasound: Clinical History: Reason: epigastric abdominal pain / Spl. Instructions: / History: Technique: Sonographic examination of the abdomen was performed and multiple static images were obta ined. COMPARISON: February 25, 2020 Findings: Liver: The majority is visualized and appears homogeneous. Common bile duct: Mildly dilated measuring 11 mm in diameter. Gallbladder: Removed. Portal vein: Appears normal. Pancreas: is not well visualized due to overlying bowel gas but appears within normal limits. Right kidney: appears normal and measures 10 cm in length. Left kidney appears normal and measures 12 cm in length. There is bilateral renal cysts. Spleen: Moderately enlarged measuring 13 cm in length. There is a 8.1 x 5.2 x 8.4 cm cyst. Impression: 1. Dilated common bile duct is only mildly larger than in the prior study. 2. Splenomegaly and splenic cysts seen previously. Electronically signed by: Jose Astudillo III, MD (02/10/2021 6:03 PM) [facility]
[2021-02-10 19:00] VITALS: BP 137/54
[2021-02-10] MEDS: LORazepam 0.5 MG TABLET PO PRN (20:58)
[2021-02-10] MEDS: ATORVASTATIN CALCIUM 10 MG TABLET. PO SCH (20:58)
[2021-02-10] MEDS ORDERED: EPOETIN ALFA-EPBX for ESRD 20,000 UNIT/ML VIAL. SQ SCH (21:00)
[2021-02-10 23:00] VITALS: BP 113/59
[2021-02-11 03:00] VITALS: BP 107/41
[2021-02-11] MEDS: HEPARIN for SUB-Q USE 5,000 UNIT/ML VIAL. SQ SCH ×2 (06:16→14:46)
[2021-02-11 06:24] LABS: BASO % 1 % (0-3); EOS # 0.7 x10^3/uL (0.0-0.7); EOS % 13 % (0-3); HEMATOCRIT 26.8 % (36.0-47.0); HEMOGLOBIN 8.7 g/dL (12.0-15.5); LYMPH # 0.8 x10^3/uL (1.0-4.8); LYMPH % 16 % (24-48); MEAN CORPUSCULAR HEMOGLOBIN 29 pg (25-35); MEAN CORPUSCULAR HGB CONC 32 g/dL (31-37); MEAN CORPUSCULAR VOLUME 90 fL (79-100); MONO # 0.7 x10^3/uL (0.0-1.1); MONO % 14 % (0-9); NEUT # 2.8 x10^3/uL (1.8-7.7); NEUT % 57 % (31-73); PLATELET COUNT 162 x10^3/uL (140-400); RED BLOOD COUNT 2.98 x10^6/uL (3.50-5.40); RED CELL DISTRIBUTION WIDTH 14.7 % (11.5-14.5)
[2021-02-11 06:34] LABS: ALBUMIN 2.2 g/dL (3.4-5.0); ALBUMIN/GLOBULIN RATIO 0.6 (1.0-1.7); CALCIUM 8.5 mg/dL (8.5-10.1); CREATININE 4.9 mg/dL (0.6-1.0); GFR 10.6; POTASSIUM 4.1 mmol/L (3.5-5.1); TOTAL BILIRUBIN 0.3 mg/dL (0.2-1.0); TOTAL PROTEIN 5.6 g/dL (6.4-8.2)
[2021-02-11 07:52] VITALS: BP 116/40
[2021-02-11] MEDS: PANTOPRAZOLE 40 MG TABLET.DR. PO SCH (07:59)
[2021-02-11] MEDS: INSULIN LISPRO 300 UNITS/3 ML VIAL. SQ SCH ×2 (08:00→12:00)
[2021-02-11] MEDS: ASPIRIN ENTERIC COATED 325 MG TABLET.DR. PO SCH (08:00)
[2021-02-11] MEDS: CINACALCET HCL 30 MG TABLET PO SCH (08:01)
[2021-02-11] MEDS: SEVELAMER CARBONATE 800 MG TABLET. PO SCH ×2 (08:01→12:08)
[2021-02-11] MEDS: CLOPIDOGREL BISULFATE 75 MG TABLET PO SCH (08:02)
--- NOTE | 2021-02-11 10:11 | PDOC ---
Date of Service: DATE: 02/11/21 TIME: 10:07 Subjective: Subjective: Pain resolved, feels better. Objective: Vital Signs: Vital Signs Date Time Temp Pulse Resp B/P (MAP) Pulse Ox O2 Delivery O2 Flow Rate FiO2 02/11/21 07:55 Nasal Cannula 2.0 02/11/21 07:52 98.2 69 16 116/40 (65) 100 98.2 Labs: Laboratory Tests Test 02/10/21 16:52 02/10/21 20:18 02/11/21 04:45 02/11/21 07:54 Glucose (Fingerstick) 170 mg/dL 117 mg/dL 103 mg/dL White Blood Count 5.0 x10^3/uL Red Blood Count 2.98 x10^6/uL Hemoglobin 8.7 g/dL Hematocrit 26.8 % Mean Corpuscular Volume 90 fL Mean Corpuscular Hemoglobin 29 pg Mean Corpuscular Hemoglobin Concent 32 g/dL Red Cell Distribution Width 14.7 % Platelet Count 162 x10^3/uL Neutrophils (%) (Auto) 57 % Lymphocytes (%) (Auto) 16 % Monocytes (%) (Auto) 14 % Eosinophils (%) (Auto) 13 % Basophils (%) (Auto) 1 % Neutrophils # (Auto) 2.8 x10^3/uL Lymphocytes # (Auto) 0.8 x10^3/uL Monocytes # (Auto) 0.7 x10^3/uL Eosinophils # (Auto) 0.7 x10^3/uL Basophils # (Auto) 0.0 x10^3/uL Sodium Level 136 mmol/L Potassium Level 4.1 mmol/L Chloride Level 97 mmol/L Carbon Dioxide Level 35 mmol/L Anion Gap 4 Blood Urea Nitrogen 24 mg/dL Creatinine 4.9 mg/dL Estimated GFR (Cockcroft-Gault) 10.6 BUN/Creatinine Ratio 5 Glucose Level 118 mg/dL Calcium Level 8.5 mg/dL Iron Level 38 ug/dL Total Iron Binding Capacity 113 ug/dL Iron Saturation 34 % Total Bilirubin 0.3 mg/dL Aspartate Amino Transf (AST/SGOT) 10 U/L Alanine Aminotransferase (ALT/SGPT) 11 U/L Alkaline Phosphatase 97 U/L Total Protein 5.6 g/dL Albumin 2.2 g/dL Albumin/Globulin Ratio 0.6 Amylase Level 73 U/L Lipase 160 U/L Vitamin B12 Level 836 pg/mL Imaging: Echo 02/10 pending Abd US 02/10 Findings: Liver: The majority is visualized and appears homogeneous. Common bile duct: Mildly dilated measuring 11 mm in diameter. Gallbladder: Removed. Portal vein: Appears normal. Pancreas: is not well visualized due to overlying bowel gas but appears within normal limits. Right kidney: appears normal and measures 10 cm in length. Left kidney appears normal and measures 12 cm in length. There is bilateral renal cysts. Spleen: Moderately enlarged measuring 13 cm in length. There is a 8.1 x 5.2 x 8.4 cm cyst. Impression: 1. Dilated common bile duct is only mildly larger than in the prior study. 2. Splenomegaly and splenic cysts seen previously. PE: GEN: NAD - was asleep LUNGS: clear anteriorly HEART: RRR ABD: S/ND/NT NEURO/PSYCH: A & O 3, probably forgetful A/P: NSTEMI, CAD s/p stent on Plavix and ASA ACD, ESRD Abdominal pain - resolved H/o GERD - on PPI Dilated CBD s/p dipak - normal LFTs -- Improved from GI standpoint. Justicifation of Admission Dx: Justifications for Admission: Justification of Admission Dx: Yes CRISTINO CUETO Feb 11, 2021 10:11
[2021-02-11 10:48] VITALS: BP 90/56
--- NOTE | 2021-02-11 11:15 | PDOC ---
GARLAND VILLALTA JUANITO 02/11/21 1115: CARDIO Progress Notes Date and Time Date of Service 02/11/21 Time of Evaluation 1115 Subjective Subjective: No Chest Pain, No shortness of breath, No Palpitations, No Dizziness Vitals Vitals Vital Signs Date Time Temp Pulse Resp B/P (MAP) Pulse Ox O2 Delivery O2 Flow Rate FiO2 02/11/21 10:48 97.7 66 20 90/56 (67) 99 Nasal Cannula 3.0 97.7 Weight Weight [ ] Input and Output Intake and Output Intake and Output 02/11/21 07:00 Intake Total 100 ml Balance 100 ml Intake Oral 100 ml Laboratory Labs Laboratory Tests Test 02/10/21 16:52 02/10/21 20:18 02/11/21 04:45 02/11/21 07:54 Glucose (Fingerstick) 170 mg/dL (70-99) 117 mg/dL (70-99) 103 mg/dL (70-99) White Blood Count 5.0 x10^3/uL (4.0-11.0) Red Blood Count 2.98 x10^6/uL (3.50-5.40) Hemoglobin 8.7 g/dL (12.0-15.5) Hematocrit 26.8 % (36.0-47.0) Mean Corpuscular Volume 90 fL (79-100) Mean Corpuscular Hemoglobin 29 pg (25-35) Mean Corpuscular Hemoglobin Concent 32 g/dL (31-37) Red Cell Distribution Width 14.7 % (11.5-14.5) Platelet Count 162 x10^3/uL (140-400) Neutrophils (%) (Auto) 57 % (31-73) Lymphocytes (%) (Auto) 16 % (24-48) Monocytes (%) (Auto) 14 % (0-9) Eosinophils (%) (Auto) 13 % (0-3) Basophils (%) (Auto) 1 % (0-3) Neutrophils # (Auto) 2.8 x10^3/uL (1.8-7.7) Lymphocytes # (Auto) 0.8 x10^3/uL (1.0-4.8) Monocytes # (Auto) 0.7 x10^3/uL (0.0-1.1) Eosinophils # (Auto) 0.7 x10^3/uL (0.0-0.7) Basophils # (Auto) 0.0 x10^3/uL (0.0-0.2) Sodium Level 136 mmol/L (136-145) Potassium Level 4.1 mmol/L (3.5-5.1) Chloride Level 97 mmol/L (98-107) Carbon Dioxide Level 35 mmol/L (21-32) Anion Gap 4 (6-14) Blood Urea Nitrogen 24 mg/dL (7-20) Creatinine 4.9 mg/dL (0.6-1.0) Estimated GFR (Cockcroft-Gault) 10.6 BUN/Creatinine Ratio 5 (6-20) Glucose Level 118 mg/dL (70-99) Calcium Level 8.5 mg/dL (8.5-10.1) Iron Level 38 ug/dL (50-170) Total Iron Binding Capacity 113 ug/dL (250-450) Iron Saturation 34 % (15-34) Total Bilirubin 0.3 mg/dL (0.2-1.0) Aspartate Amino Transf (AST/SGOT) 10 U/L (15-37) Alanine Aminotransferase (ALT/SGPT) 11 U/L (14-59) Alkaline Phosphatase 97 U/L (46-116) Total Protein 5.6 g/dL (6.4-8.2) Albumin 2.2 g/dL (3.4-5.0) Albumin/Globulin Ratio 0.6 (1.0-1.7) Amylase Level 73 U/L (25-115) Lipase 160 U/L (73-393) Vitamin B12 Level 836 pg/mL (247-911) Review of Systems Constitutional: yes: weakness, alert, oriented Ears/Nose/Throat: Yes: no symptom reported Eyes: Yes: no symptom reported Pulmonary: Yes dyspnea Cardiovascular: Yes no symptom reported Gastrointestional: Yes: no symptom reported Genitourinary: Yes: no symptom reported Musculoskeletal: Yes: no symptom reported Skin: Yes no symptom reported Psychiatric/Neurological: Yes: no symptom reported Endocrine: Yes: no symptom reported Physical Exam HEENT: Neck Supple W Full Motion Chest: Symmetric LUNGS: Clear to Auscultation Heart: RRR Abdomen: Soft N/T Extremities: No Edema Neurology: alert, oriented, follow commands Assessment Assessment 1. Severe 3V CAD; s/p PCI/EVELYN to the LAD 2. ESRD on HD 3. Mild acute on chronic diastolic CHF; appears compensated. echo pending 4. Hypertensive urgency; better controlled 5. Hyperlipidemia; statin 6. Diabetes, II 7. Anemia of chronic disease 8. AMAN Recommendations Secondary prevention including DAPT with ASA/Plavix and high dose statin therapy. (Aspirin 325 mg daily for 1 month followed by 81 mg daily) Continue BB. No ACEi/ARB with low end BP Fluid offloading via HD Risk stratification modification Cardiac rehab referral Plan outpatient staged PCI/EVELYN to RCA and IFR to LCx on February 23 as scheduled Justicifation of Admission Dx: Justifications for Admission: Justification of Admission Dx: Yes QUINCY OMALLEY MD 02/11/212041: CARDIO Progress Notes Assessment Assessment Patient seen and examined. Agree with DIANETIC COUNSELOR's assessment and plan. NSTEMI, Cardiac cath showed 3v CAD - she underwent PCI/EVELYN to LAD Plan for staged PCI to RCA and IFR/PCI to LCX in 2-4 weeks Acute on chr diastolic HF better compensated Continue fluid removal with HD per nephrology GARLAND VILLALTA APRN Feb 11, 2021 11:15 QUINCY OMALLEY MD Feb 11, 2021 20:42
--- NOTE | 2021-02-11 11:20 | PDOC ---
PROGRESS NOTES Date of Service DATE: 02/11/21 TIME: 11:15 Subjective Subjective feels well. not short of breath. no chest pain. feels well. eating well . no abdominal pain. abdominal ultrasound and lab reviewed. songram shows unchanged moderate splenomegaly and mild common bile duct dilatation. discussed with her nurse Objective Objective Vital Signs Date Time Temp Pulse Resp B/P (MAP) Pulse Ox O2 Delivery O2 Flow Rate FiO2 02/11/21 10:48 97.7 66 20 90/56 (67) 99 Nasal Cannula 3.0 97.7 Intake and Output 02/11/21 07:00 Intake Total 100 ml Balance 100 ml Intake Oral 100 ml Physical Exam Abdomen: Soft, No tenderness (bp 131/46 now) Heart: Regular rate, Normal S1, Normal S2 Extremities: No edema General: Alert HEENT: Atraumatic Lungs: Clear to auscultation Neuro: Normal speech Psych/Mental Status: Mental status NL Skin: No rashes Assessment Assessment Problems NSTEMI____. 2. End-stage renal disease, on hemodialysis.M-W-F 3. Acute on chronic diastolic congestive heart failure, most likely secondary to fluid overload and missed dialysis 02/08 due to chest pain. 4. Hypertension. 5. Hyperlipidemia. 6. Chronic obstructive pulmonary disease. 7. Obstructive sleep apnea. 8. Anemia of chronic disease. 9. Diabetes mellitus type 2. 10. Severe protein calorie malnutrition. 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 Labs Laboratory Tests Test 02/09/21 11:44 02/09/21 20:00 02/10/21 06:50 02/10/21 07:40 Glucose (Fingerstick) 112 mg/dL (70-99) 95 mg/dL (70-99) 82 mg/dL (70-99) White Blood Count 5.1 x10^3/uL (4.0-11.0) Red Blood Count 3.12 x10^6/uL (3.50-5.40) Hemoglobin 9.2 g/dL (12.0-15.5) Hematocrit 28.2 % (36.0-47.0) Mean Corpuscular Volume 90 fL (79-100) Mean Corpuscular Hemoglobin 30 pg (25-35) Mean Corpuscular Hemoglobin Concent 33 g/dL (31-37) Red Cell Distribution Width 14.6 % (11.5-14.5) Platelet Count 173 x10^3/uL (140-400) Sodium Level 138 mmol/L (136-145) Potassium Level 4.1 mmol/L (3.5-5.1) Chloride Level 98 mmol/L (98-107) Carbon Dioxide Level 30 mmol/L (21-32) Anion Gap 10 (6-14) Blood Urea Nitrogen 36 mg/dL (7-20) Creatinine 7.3 mg/dL (0.6-1.0) Estimated GFR (Cockcroft-Gault) 6.7 Glucose Level 85 mg/dL (70-99) Calcium Level 8.6 mg/dL (8.5-10.1) Test 02/10/21 16:52 02/10/21 20:18 02/11/21 04:45 02/11/21 07:54 Glucose (Fingerstick) 170 mg/dL (70-99) 117 mg/dL (70-99) 103 mg/dL (70-99) White Blood Count 5.0 x10^3/uL (4.0-11.0) Red Blood Count 2.98 x10^6/uL (3.50-5.40) Hemoglobin 8.7 g/dL (12.0-15.5) Hematocrit 26.8 % (36.0-47.0) Mean Corpuscular Volume 90 fL (79-100) Mean Corpuscular Hemoglobin 29 pg (25-35) Mean Corpuscular Hemoglobin Concent 32 g/dL (31-37) Red Cell Distribution Width 14.7 % (11.5-14.5) Platelet Count 162 x10^3/uL (140-400) Neutrophils (%) (Auto) 57 % (31-73) Lymphocytes (%) (Auto) 16 % (24-48) Monocytes (%) (Auto) 14 % (0-9) Eosinophils (%) (Auto) 13 % (0-3) Basophils (%) (Auto) 1 % (0-3) Neutrophils # (Auto) 2.8 x10^3/uL (1.8-7.7) Lymphocytes # (Auto) 0.8 x10^3/uL (1.0-4.8) Monocytes # (Auto) 0.7 x10^3/uL (0.0-1.1) Eosinophils # (Auto) 0.7 x10^3/uL (0.0-0.7) Basophils # (Auto) 0.0 x10^3/uL (0.0-0.2) Sodium Level 136 mmol/L (136-145) Potassium Level 4.1 mmol/L (3.5-5.1) Chloride Level 97 mmol/L (98-107) Carbon Dioxide Level 35 mmol/L (21-32) Anion Gap 4 (6-14) Blood Urea Nitrogen 24 mg/dL (7-20) Creatinine 4.9 mg/dL (0.6-1.0) Estimated GFR (Cockcroft-Gault) 10.6 BUN/Creatinine Ratio 5 (6-20) Glucose Level 118 mg/dL (70-99) Calcium Level 8.5 mg/dL (8.5-10.1) Iron Level 38 ug/dL (50-170) Total Iron Binding Capacity 113 ug/dL (250-450) Iron Saturation 34 % (15-34) Total Bilirubin 0.3 mg/dL (0.2-1.0) Aspartate Amino Transf (AST/SGOT) 10 U/L (15-37) Alanine Aminotransferase (ALT/SGPT) 11 U/L (14-59) Alkaline Phosphatase 97 U/L (46-116) Total Protein 5.6 g/dL (6.4-8.2) Albumin 2.2 g/dL (3.4-5.0) Albumin/Globulin Ratio 0.6 (1.0-1.7) Amylase Level 73 U/L (25-115) Lipase 160 U/L (73-393) Vitamin B12 Level 836 pg/mL (247-911) Laboratory Tests Test 02/10/21 16:52 02/10/21 20:18 02/11/21 04:45 02/11/21 07:54 Glucose (Fingerstick) 170 mg/dL (70-99) 117 mg/dL (70-99) 103 mg/dL (70-99) White Blood Count 5.0 x10^3/uL (4.0-11.0) Red Blood Count 2.98 x10^6/uL (3.50-5.40) Hemoglobin 8.7 g/dL (12.0-15.5) Hematocrit 26.8 % (36.0-47.0) Mean Corpuscular Volume 90 fL (79-100) Mean Corpuscular Hemoglobin 29 pg (25-35) Mean Corpuscular Hemoglobin Concent 32 g/dL (31-37) Red Cell Distribution Width 14.7 % (11.5-14.5) Platelet Count 162 x10^3/uL (140-400) Neutrophils (%) (Auto) 57 % (31-73) Lymphocytes (%) (Auto) 16 % (24-48) Monocytes (%) (Auto) 14 % (0-9) Eosinophils (%) (Auto) 13 % (0-3) Basophils (%) (Auto) 1 % (0-3) Neutrophils # (Auto) 2.8 x10^3/uL (1.8-7.7) Lymphocytes # (Auto) 0.8 x10^3/uL (1.0-4.8) Monocytes # (Auto) 0.7 x10^3/uL (0.0-1.1) Eosinophils # (Auto) 0.7 x10^3/uL (0.0-0.7) Basophils # (Auto) 0.0 x10^3/uL (0.0-0.2) Sodium Level 136 mmol/L (136-145) Potassium Level 4.1 mmol/L (3.5-5.1) Chloride Level 97 mmol/L (98-107) Carbon Dioxide Level 35 mmol/L (21-32) Anion Gap 4 (6-14) Blood Urea Nitrogen 24 mg/dL (7-20) Creatinine 4.9 mg/dL (0.6-1.0) Estimated GFR (Cockcroft-Gault) 10.6 BUN/Creatinine Ratio 5 (6-20) Glucose Level 118 mg/dL (70-99) Calcium Level 8.5 mg/dL (8.5-10.1) Iron Level 38 ug/dL (50-170) Total Iron Binding Capacity 113 ug/dL (250-450) Iron Saturation 34 % (15-34) Total Bilirubin 0.3 mg/dL (0.2-1.0) Aspartate Amino Transf (AST/SGOT) 10 U/L (15-37) Alanine Aminotransferase (ALT/SGPT) 11 U/L (14-59) Alkaline Phosphatase 97 U/L (46-116) Total Protein 5.6 g/dL (6.4-8.2) Albumin 2.2 g/dL (3.4-5.0) Albumin/Globulin Ratio 0.6 (1.0-1.7) Amylase Level 73 U/L (25-115) Lipase 160 U/L (73-393) Vitamin B12 Level 836 pg/mL (247-911) Medications Current Medications Aspirin (Ecotrin) 81 mg DAILYWBKFT PO Last administered on 02/08/21at 13:55; Start 02/08/21 at 14:00; Stop 02/09/21 at 18:00; Status DC Hydralazine HCl (Apresoline Inj) 10 mg PRN Q4HRS PRN IVP ELEVATED BP, SEE COMMENTS; Start 02/08/21 at 14:15; Stop 02/11/21 at 10:59; Status DC Carvedilol (Coreg) 25 mg BIDWMEALS PO Last administered on 02/10/21at 17:35; Start 02/08/21 at 17:00; Stop 02/11/21 at 10:59; Status DC Atorvastatin Calcium (Lipitor) 10 mg QHS PO Last administered on 02/08/21at 20:52; Start 02/08/21 at 21:00; Stop 02/09/21 at 18:00; Status DC Aspirin (Aspirin Chewable) 81 mg DAILYWBKFT PO Last administered on 02/08/21at 17:29; Start 02/08/21 at 17:00; Stop 02/09/21 at 15:05; Status DC Insulin Human Lispro (HumaLOG) 0-6 UNITS BG 300-39... TIDWMEALS SQ Last administered on 02/10/21at 17:41; Start 02/08/21 at 17:00 Heparin Sodium (Porcine) (Heparin Sodium) 5,000 unit Q8HRS SQ Last administered on 02/11/21at 06:16; Start 02/08/21 at 17:15 Sevelamer Carbonate (Renvela) 1,600 mg TIDWMEALS PO Last administered on 02/11/21at 08:01; Start 02/08/21 at 17:00 Cinacalcet (Sensipar) 60 mg DAILY PO Last administered on 02/11/21at 08:01; Start 02/09/21 at 09:00 Acetaminophen (Tylenol) 650 mg PRN Q6HRS PRN PO MILD PAIN / TEMP > 100.3'F; Start 02/08/21 at 17:00 Epoetin Aaron-epbx (RETACRIT for ESRD PTS) 10,000 unit MoWeFr@2100 SQ Last administered on 02/10/21at 20:59; Start 02/10/21 at 21:00 Fentanyl Citrate (Fentanyl 2ml Vial) 100 mcg STK-MED ONCE .ROUTE ; Start 02/09/21 at 13:29; Stop 02/09/21 at 13:29; Status DC Midazolam HCl (Versed) 2 mg STK-MED ONCE .ROUTE ; Start 02/09/21 at 13:29; Stop 02/09/21 at 13:30; Status DC Lidocaine HCl (Lidocaine 1% 20ml Vial) 20 ml STK-MED ONCE .ROUTE ; Start 02/09/21 at 13:32; Stop 02/09/21 at 13:32; Status DC Heparin Sodium/ Sodium Chloride 500 ml @ As Directed STK-MED ONCE .ROUTE ; Start 02/09/21 at 13:32; Stop 02/09/21 at 13:32; Status DC Iodixanol (Visipaque 320) 100 ml STK-MED ONCE .ROUTE ; Start 02/09/21 at 13:32; Stop 02/09/21 at 13:33; Status DC Heparin Sodium/ Sodium Chloride (HEPARIN for ARTERIAL LINE FLUSH) 1,000 unit 1X ONCE IART Last administered on 02/09/21at 15:19; Start 02/09/21 at 14:30; Stop 02/09/21 at 14:31; Status DC Midazolam HCl (Versed) 2 mg 1X ONCE IV Last administered on 02/09/21at 15:17; Start 02/09/21 at 14:30; Stop 02/09/21 at 14:31; Status DC Fentanyl Citrate (Fentanyl 2ml Vial) 100 mcg 1X ONCE IV Last administered on 02/09/21at 15:18; Start 02/09/21 at 14:30; Stop 02/09/21 at 14:31; Status DC Iodixanol (Visipaque 320) 100 ml 1X ONCE IART Last administered on 02/09/21at 15:34; Start 02/09/21 at 14:30; Stop 02/09/21 at 14:31; Status DC Lidocaine HCl (Lidocaine 1% 20ml Vial) 20 ml 1X ONCE INJ Last administered on 02/09/21at 15:17; Start 02/09/21 at 14:30; Stop 02/09/21 at 14:31; Status DC Bivalirudin (Angiomax) 250 mg STK-MED ONCE IV ; Start 02/09/21 at 14:30; Stop 02/09/21 at 14:30; Status DC Bivalirudin (Angiomax) 250 mg 1X ONCE IV Last administered on 02/09/21at 15:18; Start 02/09/21 at 14:45; Stop 02/09/21 at 14:46; Status DC Clopidogrel Bisulfate (Plavix) 600 mg 1X ONCE PO Last administered on 02/09/21at 15:36; Start 02/09/21 at 14:45; Stop 02/09/21 at 14:46; Status DC Clopidogrel Bisulfate (Plavix) 75 mg STK-MED ONCE .ROUTE ; Start 02/09/21 at 14:50; Stop 02/09/21 at 14:51; Status DC Aspirin (Conferensum Aspirin) 325 mg STK-MED ONCE .ROUTE ; Start 02/09/21 at 14:50; Stop 02/09/21 at 14:51; Status DC Aspirin (Conferensum Aspirin) 325 mg 1X ONCE PO Last administered on 02/09/21at 15:15; Start 02/09/21 at 15:15; Stop 02/09/21 at 15:16; Status DC Info (PHARMACY MONITORING -- do not chart) 1 each PRN DAILY PRN MC SEE COMMENTS; Start 02/09/21 at 16:00; Status Cancel Lorazepam (Ativan) 0.5 mg PRN Q6HRS PRN PO ANXIETY / AGITATION Last administered on 02/10/21at 20:58; Start 02/09/21 at 16:30 Aspirin (Ecotrin) 325 mg DAILYWBKFT PO ; Start 02/10/21 at 08:00; Status UNV Atorvastatin Calcium (Lipitor) 40 mg QHS PO Last administered on 02/10/21at 20:58; Start 02/09/21 at 21:00 Aspirin (Ecotrin) 325 mg DAILYWBKFT PO Last administered on 02/11/21at 08:00; Start 02/10/21 at 08:00 Clopidogrel Bisulfate (Plavix) 75 mg DAILYWBKFT PO Last administered on 02/11/21at 08:02; Start 02/10/21 at 08:00 Sodium Chloride 1,000 ml @ 1,000 mls/hr Q1H PRN IV hypotension; Start 02/10/21 at 09:00; Stop 02/10/21 at 14:59; Status DC Sodium Chloride 1,000 ml @ 400 mls/hr Q2H30M PRN IV PATENCY; Start 02/10/21 at 09:00; Stop 02/10/21 at 20:59; Status DC Info (PHARMACY MONITORING -- do not chart) 1 each PRN DAILY PRN MC SEE COMMENTS; Start 02/10/21 at 09:00 Ondansetron HCl (Zofran Odt) 4 mg PRN Q6HRS PRN PO NAUSEA/VOMITING; Start 02/10/21 at 11:00 Al Hydroxide/Mg Hydroxide (Mylanta Plus Xs) 30 ml PRN Q2HR PRN PO HEARTBURN / GAS; Start 02/10/21 at 11:00 Pantoprazole Sodium (Protonix) 40 mg DAILYAC PO Last administered on 02/11/21at 07:59; Start 02/10/21 at 12:00 Ondansetron HCl (Zofran) 4 mg 1X ONCE IVP Last administered on 02/10/21at 11:01; Start 02/10/21 at 11:00; Stop 02/10/21 at 11:01; Status DC Carvedilol (Coreg) 12.5 mg BIDWMEALS PO ; Start 02/11/21 at 17:00 Active Scripts Active Pravastatin Sodium 40 Mg Tablet 1 Tab PO QHS Carvedilol 25 Mg Tablet 25 Mg PO BIDWMEALS 30 Days Reported Symbicort 160-4.5 Mcg Inhaler (Budesonide/Formoterol Fumarate) 10.2 Gm Hfa.aer.ad 2 Puff IH BID Cinacalcet HCl 90 Mg Tablet 90 Mg PO DAILY Calcium Carbonate 500 Mg Tablet 3 Tab PO TIDWMEALS 30 Days Renal-Johnny Tablet (Folic Acid/Vit Bcomp,C) 0.8 Mg Tablet 1 Tab PO DAILY 30 Days Alphagan P (Brimonidine Tartrate) 5 Ml Drops 1 Drop OD BID Proair Hfa Inhaler (Albuterol Sulfate) 8.5 Gm Hfa.aer.ad 2 Puff IH PRN Q4-6HRS Cosopt Eye Drops (Dorzolamide Hcl/Timolol Maleat) 10 Ml Drops 1 Drop EACHEYE BID Aspirin 81 Mg Tab.chew 81 Mg PO DAILY Vitals/I & O Vital Sign - Last 24 Hours 02/10/21 02/10/21 02/10/21 02/10/21 15:00 17:35 19:00 20:00 Temp 98.7 97.8 98.7 97.8 Pulse 77 77 76 Resp 18 18 B/P (MAP) 111/45 (67) 111/45 137/54 (81) Pulse Ox 95 96 O2 Delivery Nasal Cannula Nasal Cannula Nasal Cannula O2 Flow Rate 3.0 2.0 3.0 02/10/21 02/11/21 02/11/21 02/11/21 23:00 03:00 07:52 07:55 Temp 98.8 97.8 98.2 98.8 97.8 98.2 Pulse 72 64 69 Resp 16 16 16 B/P (MAP) 113/59 (77) 107/41 (63) 116/40 (65) Pulse Ox 99 97 100 O2 Delivery Nasal Cannula Nasal Cannula Nasal Cannula Nasal Cannula O2 Flow Rate 2.0 3.0 3.0 2.0 02/11/21 10:48 Temp 97.7 97.7 Pulse 66 Resp 20 B/P (MAP) 90/56 (67) Pulse Ox 99 O2 Delivery Nasal Cannula O2 Flow Rate 3.0 Intake and Output 02/10/21 02/10/21 02/11/21 15:00 23:00 07:00 Intake Total 50 ml 50 ml Balance 50 ml 50 ml Justifications for Admission Other Justification DIVINA BRIGGS MD Feb 11, 2021 11:19
--- NOTE | 2021-02-11 11:29 | NUR ---
SS following up with discharge planning. SS reviewed pt chart and discussed with pt RN. Pt is currently requiring oxygen at three liters nasal canula. COVID19 negative. Pt had heart cath on 02/09/2021. Pt has outpatient hemodialysis at [facility], ; fax [phone], Monday, Monday, and Monday. Pt has home oxygen. Discharge order on the chart for home with self care.
[2021-02-11 11:30] VITALS: BP 131/46
[2021-02-11] MEDS ORDERED: CLOP75TA PO (11:33)
[2021-02-11] MEDS ORDERED: ATOR10TA60 PO (11:33)
[2021-02-11] MEDS ORDERED: CARV12.511 PO (11:33)
[2021-02-11] MEDS ORDERED: PANT40TA77 PO (11:34)
[2021-02-11] MEDS ORDERED: SEVE800T9 PO (11:34)
[2021-02-11] MEDS ORDERED: INSU100V35 SQ (11:34)
[2021-02-11] MEDS ORDERED: CINA30TA6 PO (11:34)
[2021-02-11] MEDS ORDERED: ASPI325T11 PO (11:34)
--- NOTE | 2021-02-11 11:35 | DISCH ---
DISCHARGE INSTRUCTIONS Condition on Discharge Condition on Discharge: Stable Activity After Discharge Activity Instructions for Disc: No restrictions, Activity as tolerated Exercise Instruction after Dis: Progress as tolerated Driving Instructions after Dis: Do not drive Weight Bearing Status after Di: As tolerated Diet after Discharge Diet after Discharge: Cardiac, Renal Dialysis, Diabetic No Calorie Level Diet Texture: Regular Liquid Texture: Thin Liquid Wound Incision Care Wound/Incision Care: Keep wound/cast CDI Checks after Discharge Checks after discharge: Check blood press - daily, Check blood sugar, ac/hs, Weigh Yourself Daily Contacting the DRBishop after DC Call your doctor for: If your condition worsens Follow-Up Follow up with: dr. briggs next week Follow Up With: dr. stone and will need stent to RCA and circumflex arteries as out pt Treatment/Equipment after DC Adaptive Equipment Issued: Venkat Jiménez Discharge Respiratory Equipmen: Oxygen DIVINA BRIGGS MD Feb 11, 2021 11:35
--- NOTE | 2021-02-11 11:41 | PDOC ---
Provider Note Date of Service: DATE: 02/11/21 TIME: 11:40 Provider Note discharge summary dictated # [id number] Justifications for Admission Other Justification DIVINA BRIGGS MD Feb 11, 2021 11:41
--- NOTE | 2021-02-11 12:54 | PDOC ---
Renal-Progress Notes Subjective Notes Notes FEELING BETTER History of Present Illness Hx of present illness STABLE Vitals Vitals Vital Signs Date Time Temp Pulse Resp B/P (MAP) Pulse Ox O2 Delivery O2 Flow Rate FiO2 02/11/21 11:30 69 131/46 (74) 02/11/21 10:48 97.7 20 99 Nasal Cannula 3.0 97.7 Weight Weight [ ] I.O. Intake and Output Intake and Output 02/11/21 07:00 Intake Total 100 ml Balance 100 ml Intake Oral 100 ml Labs Labs Laboratory Tests Test 02/10/21 16:52 02/10/21 20:18 02/11/21 04:45 02/11/21 07:54 Glucose (Fingerstick) 170 mg/dL (70-99) 117 mg/dL (70-99) 103 mg/dL (70-99) White Blood Count 5.0 x10^3/uL (4.0-11.0) Red Blood Count 2.98 x10^6/uL (3.50-5.40) Hemoglobin 8.7 g/dL (12.0-15.5) Hematocrit 26.8 % (36.0-47.0) Mean Corpuscular Volume 90 fL (79-100) Mean Corpuscular Hemoglobin 29 pg (25-35) Mean Corpuscular Hemoglobin Concent 32 g/dL (31-37) Red Cell Distribution Width 14.7 % (11.5-14.5) Platelet Count 162 x10^3/uL (140-400) Neutrophils (%) (Auto) 57 % (31-73) Lymphocytes (%) (Auto) 16 % (24-48) Monocytes (%) (Auto) 14 % (0-9) Eosinophils (%) (Auto) 13 % (0-3) Basophils (%) (Auto) 1 % (0-3) Neutrophils # (Auto) 2.8 x10^3/uL (1.8-7.7) Lymphocytes # (Auto) 0.8 x10^3/uL (1.0-4.8) Monocytes # (Auto) 0.7 x10^3/uL (0.0-1.1) Eosinophils # (Auto) 0.7 x10^3/uL (0.0-0.7) Basophils # (Auto) 0.0 x10^3/uL (0.0-0.2) Sodium Level 136 mmol/L (136-145) Potassium Level 4.1 mmol/L (3.5-5.1) Chloride Level 97 mmol/L (98-107) Carbon Dioxide Level 35 mmol/L (21-32) Anion Gap 4 (6-14) Blood Urea Nitrogen 24 mg/dL (7-20) Creatinine 4.9 mg/dL (0.6-1.0) Estimated GFR (Cockcroft-Gault) 10.6 BUN/Creatinine Ratio 5 (6-20) Glucose Level 118 mg/dL (70-99) Calcium Level 8.5 mg/dL (8.5-10.1) Iron Level 38 ug/dL (50-170) Total Iron Binding Capacity 113 ug/dL (250-450) Iron Saturation 34 % (15-34) Total Bilirubin 0.3 mg/dL (0.2-1.0) Aspartate Amino Transf (AST/SGOT) 10 U/L (15-37) Alanine Aminotransferase (ALT/SGPT) 11 U/L (14-59) Alkaline Phosphatase 97 U/L (46-116) Total Protein 5.6 g/dL (6.4-8.2) Albumin 2.2 g/dL (3.4-5.0) Albumin/Globulin Ratio 0.6 (1.0-1.7) Amylase Level 73 U/L (25-115) Lipase 160 U/L (73-393) Vitamin B12 Level 836 pg/mL (247-911) Test 02/11/21 11:20 Glucose (Fingerstick) 111 mg/dL (70-99) Review of Systems Constitutional: yes: weakness, alert, oriented Ears/Nose/Throat: Yes: no symptom reported Eyes: Yes: no symptom reported Pulmonary: Yes dyspnea Cardiovascular: Yes no symptom reported Gastrointestional: Yes: no symptom reported Genitourinary: Yes: no symptom reported Musculoskeletal: Yes: no symptom reported Skin: Yes no symptom reported Psychiatric/Neurological: Yes: no symptom reported Endocrine: Yes: no symptom reported Physical Exam General Appearance: no apparent distress Skin: warm Respiratory: decreased breath sounds Heart: S1S2 Abdomen: soft, bowel sounds present Genitourinary: bladder flat Extremities: pulses present Neurology: alert, oriented, follow commands Musculoskeletal: Osteoarthritis Assessment Assessment IMP CHEST PAIN-CAD-S/P PTCA AND STENT [id number]-MHA-CDBT FA AVG ANEMIA NSTEMI DM II HTN PLAN SUSANA NEEDED HD TOMORROW WILL FOLLOW POSSIBLE D/C TODAY D/W ATTENDING CODY NORMAN MD Feb 11, 2021 12:53
--- NOTE | 2021-02-11 12:58 | DS ---
DATE OF DISCHARGE: 02/11/2021 LOCATION: She is in room 669. CONSULTANTS: Dr. Victor, Dr. Nix, Dr. Perkins. PROCEDURE: Cardiac catheterization with angioplasty and stent to the left coronary artery. FINAL DIAGNOSES: 1. Severe 3-vessel coronary artery disease noted on cardiac catheterization with percutaneous transluminal coronary angioplasty and stent to the left anterior descending artery, and as an outpatient, she will need staged stent to the right coronary artery and also the left circumflex artery as an outpatient per the contracts paralegal. 2. Non-ST segment elevated myocardial infarction. 3. Acute on chronic diastolic congestive heart failure, presently compensated. 4. End-stage renal disease, on hemodialysis. 5. Hypertension. 6. Hyperlipidemia. 7. Chronic obstructive pulmonary disease. 8. Obstructive sleep apnea. 9. Anemia of chronic disease. 10. Diabetes mellitus type 2. 11. Severe protein-calorie malnutrition. 12. Epigastric abdominal pain of undetermined etiology, resolved. 13. ____. HOSPITAL COURSE: The patient is a 70-year-old morbidly obese -Chinese female with end-stage renal disease, on hemodialysis Mondays, Wednesdays and Fridays, followed by Dr. Perkins who has hypertension, hyperlipidemia, diabetes mellitus type 2 with a history of COPD, obstructive sleep apnea and anemia of chronic disease noted and was admitted to [facility] through Emergency Room on 02/08/2021 with chest pain. Cardiac enzymes were elevated, troponin was elevated and she underwent a cardiac catheterization that showed triple coronary artery disease, underwent LEAD MINER BLASTING and stent to the left anterior descending coronary artery and her aspirin was increased to 325 mg every day and started on Plavix 75 mg every day. While she was here, her pravastatin was discontinued. She was started on atorvastatin 40 mg every day. Her carvedilol was decreased to 25 mg b.i.d. to 12.5 mg twice a day as her blood pressure is on the low side of normal at times. She was dialyzed and she had some epigastric abdominal pain. Liver enzymes were okay. She had a previous history of cholecystectomy. She had an ultrasound of abdomen, which showed moderate large spleen, which showed unchanged and dilated common bile duct, only mildly larger than it was prior and was thought to be from the post cholecystectomy state. Seen in consultation by Dr. Nix for GI, treated with Protonix. Her abdominal pain and nausea resolved. So, it is anticipated she will be dismissed today to home and she will follow up with Dr. Victor and have an outpatient staged right coronary artery and left circumflex coronary angioplasties and stents placed. She will be dismissed on aspirin 325 mg every day for 30 days, 1 month and she will decrease it to 81 mg every day thereafter, Plavix 75 mg every day. She will take atorvastatin 40 mg at night and discontinue the pravastatin. She will continue the Protonix 40 mg every day. Can use albuterol inhaler p.r.n., Carvedilol 12.5 mg b.i.d., nebulizer treatments, DuoNeb at home every 4 hours p.r.n., NovoLog insulin sliding scale low dose before meals t.i.d. as written, Renvela 800 mg 2 tablets t.i.d. with meals, Sensipar 60 mg every day, Symbicort 160/4.5 two puffs b.i.d. p.r.n. She will make an appointment to see Dr. La in the office next week and follow up with Dr. Victor and the nurse will contact Dr. Victor to schedule this as an outpatient. That is the angioplasty and stents to the 2 other arteries and she will be dialyzed Mondays, Wednesdays and Fridays as an outpatient and make an appointment to see Dr. La in the office next week. AZUCENA/ABIMBOLA DR: Bart TID: [id number]
[2021-02-11 14:39] VITALS: BP 121/54
--- NOTE | 2021-02-11 16:00 | NUR ---
Discharge instructions given to son and grandson. Answered questions and concerns. Both verbalized understanding. Pt escorted out by w/c.
--- NOTE | 2021-02-11 16:32 | CARD ---
MR#: [id number] Date of Study: 02/10/2021 Ordering Physician: GARLAND VILLALTA, Referring Physician: GARLAND VILLALTA, Tech: Dana Escobar, [facility] APPROVED REPORT EXAM: Two-dimensional and M-mode echocardiogram with Doppler and color Doppler. Other Information Quality : AverageHR: 65bpm INDICATION COPD Chest Pain RISK FACTORS Hypertension Hyperlipidemia Diabetes 2D DIMENSIONS Left Atrium(2D)3.2 (1.6-4.0cm)IVSd1.4 (0.7-1.1cm) Aortic Root(2D)3.2 (2.0-3.7cm)LVDd4.9 (3.9-5.9cm) LVOT Diameter2.1 (1.8-2.4cm)PWd1.2 (0.7-1.1cm) LVDs3.2 (2.5-4.0cm)FS (%) 33.8 % SV69.9 ml Aortic Valve AoV Peak Manjeet.155.9cm/sAoV VTI40.3cm AO Peak GR.9.7mmHgLVOT VTI 23.36cm AO Mean GR.5mmHg Mitral Valve MV E Uullgsih345.0cm/sMV E Peak Gr.10mmHg MV DECEL [id number] A Fawjilql750.8cm/s MV E Mean Gr.4mmHgE/A Ratio1.2 TDI Lateral E' P. V5.99cm/sMedial E' P. V4.96cm/s E/Lateral E'21.9E/Medial E'26.4 Tricuspid Valve TR P. [id number]/sRAP [id number] TR Peak Gr.[id number] LEFT VENTRICLE The left ventricle is normal size. There is mild concentric left ventricular hypertrophy. The systoli c function is mildly impaired. The Ejection Fraction is 45-50%. Septal motion consistent with conduct ion abnormality. Transmitral Doppler flow pattern is Grade II-pseudonormal filling dynamics. RIGHT VENTRICLE The right ventricle is borderline dilated. There is normal right ventricular wall thickness. The righ t ventricular systolic function is normal. ATRIA The left atrium size is normal. The right atrium size is normal. The interatrial septum is intact wit h no evidence for an atrial septal defect or patent foramen ovale as noted on 2-D or Doppler imaging. AORTIC VALVE The aortic valve is calcified but opens well. Doppler and Color Flow revealed no significant aortic r egurgitation. There is no significant aortic valvular stenosis. Calculated aortic valve area is 1.93 cm2 with maximum pressure gradient of 12 mmHg and mean pressure gradient of 6 mmHg. MITRAL VALVE The mitral valve is calcified but opens well. There is no evidence of mitral valve prolapse. The mitr al valve mean gradient is 4.35 mmHg. There is no significant mitral valve stenosis. Doppler and Color -flow revealed mild mitral regurgitation. TRICUSPID VALVE The tricuspid valve is normal in structure and function. Doppler and Color Flow revealed trace tricus pid regurgitation with an estimated PAP of 37 mmHg. There is no tricuspid valve stenosis. PULMONIC VALVE The pulmonic valve is not well visualized. Doppler and Color Flow revealed no pulmonic valvular regur gitation. GREAT VESSELS The aortic root is normal in size. The IVC is normal in size and collapses >50% with inspiration. PERICARDIAL EFFUSION There is no evidence of significant pericardial effusion. Critical Notification Critical Value: No <Conclusion> The left ventricle is normal size. The systolic function is mildly impaired. The Ejection Fraction is 45-50%. Septal motion consistent with conduction abnormality. There is mild concentric left ventricular hypertrophy. Doppler and Color Flow revealed no significant aortic regurgitation. There is no significant aortic valvular stenosis. The mitral valve mean gradient is 4.35 mmHg. There is no significant mitral valve stenosis. Doppler and Color-flow revealed mild mitral regurgitation. Doppler and Color Flow revealed trace tricuspid regurgitation with an estimated PAP of 37 mmHg. Signed by : Miles Padilla MD Electronically Approved : 02/11/2021 16:32:00
[2021-02-11] MEDS ORDERED: CARVEDILOL 12.5 MG TABLET. PO SCH (17:00)
== END 2021-02-11 16:05 | disposition home or self-care (01) | DRG 246 ==
LOC: ER 10:11 → ED HOLD 13:03 → 6 SOUTH 20:19
PROVIDERS: ADMIT Internal Medicine; ATTEND Internal Medicine
PROC: 027034Z Dilation of Coronary Artery, One Artery with Drug-eluting Intraluminal Device, Percutaneous Approach (ICD-10-PCS; principal; 2021-02-09)
PROC: 4A023N7 Measurement of Cardiac Sampling and Pressure, Left Heart, Percutaneous Approach (ICD-10-PCS; 2021-02-09)
PROC: B2111ZZ Fluoroscopy of Multiple Coronary Arteries using Low Osmolar Contrast (ICD-10-PCS; 2021-02-09)
DX: I21.4 Non-ST elevation (NSTEMI) myocardial infarction (principal); I50.33 Acute on chronic diastolic (congestive) heart failure; N18.6 End stage renal disease; E43 Unspecified severe protein-calorie malnutrition; I13.2 Hypertensive heart and chronic kidney disease with heart failure and with stage 5 chronic kidney disease, or end stage renal disease; D25.9 Leiomyoma of uterus, unspecified; D63.8 Anemia in other chronic diseases classified elsewhere; D73.4 Cyst of spleen; E04.1 Nontoxic single thyroid nodule; E11.22 Type 2 diabetes mellitus with diabetic chronic kidney disease; E66.01 Morbid (severe) obesity due to excess calories; E78.00 Pure hypercholesterolemia, unspecified; E78.5 Hyperlipidemia, unspecified; F32.A Depression, unspecified; F41.9 Anxiety disorder, unspecified; G47.33 Obstructive sleep apnea (adult) (pediatric); H40.9 Unspecified glaucoma; I16.0 Hypertensive urgency; I25.2 Old myocardial infarction; I25.10 Atherosclerotic heart disease of native coronary artery without angina pectoris; J44.9 Chronic obstructive pulmonary disease, unspecified; K21.9 Gastro-esophageal reflux disease without esophagitis; K83.8 Other specified diseases of biliary tract; Z79.02 Long term (current) use of antithrombotics/antiplatelets; Z79.82 Long term (current) use of aspirin; Z79.899 Other long term (current) drug therapy; Z82.49 Family history of ischemic heart disease and other diseases of the circulatory system; Z83.3 Family history of diabetes mellitus; Z86.73 Personal history of transient ischemic attack (TIA), and cerebral infarction without residual deficits; Z90.49 Acquired absence of other specified parts of digestive tract; Z91.040 Latex allergy status; Z95.5 Presence of coronary angioplasty implant and graft; Z99.2 Dependence on renal dialysis; E21.3 Hyperparathyroidism, unspecified; E66.9 Obesity, unspecified; M19.90 Unspecified osteoarthritis, unspecified site; Z91.011 Allergy to milk products
CPT/HCPCS: 92928; 93458; 99285; G0269; 36415; 71045; 76700; 76937; 80048; 80053; 80061; 82150; 82607; 82962; 83540; 83550; 83690; 84443; 84484; 85025; 85027; 86706; 87340; 87426; 93005; 93306; 99152; 99153; C1725; C1894; J0583; J1644; J1815; J2250; J2405; J3010; J3490; Q9967; U0003; U0005; C1874; G0378